=== PATIENT | female | born 1945 | race Caucasian/White ===

== ENCOUNTER → 2016-09-23 | Outpatient (CLI) | payer OTHER ==
[~2016-09-23] MED LIST: ASPI-232 PO; CALCTAB7 PO; FLUO20CA36 PO; HYDR-5688 PO; KLN1X PO; MULT-506 PO; OMEGCAP2 PO; PRAV40TA2 PO; TPRSR/25 PO
[2016-09-23 13:22] LABS: BASO % 0.4 %; BASO ABS # 0.03 K/uL (0-0.2); COMPLETE YES; EOS % 3.6 %; HEMATOCRIT 41.2 % (37-47); IG% 0.2 %; LYMPH % 43.8 %; LYMPH ABS # 3.63 K/uL (1.2-3.4); MEAN CELL VOLUME 100.5 fL (80-100); MEAN CORPUSCULAR HEMOGLOBIN 34.4 pg (25-34); MEAN CORPUSCULAR HGB CONC 34.2 g/dl (32-36); MEAN PLATELET VOLUME 10.8 fL (7.4-10.4); PLATELET COUNT 283 K/uL (130-400); WHITE BLOOD COUNT 8.28 K/uL (4.8-10.8)
[2016-09-23 13:46] LABS: ALT/SGPT 24 U/L (12-78); AST/SGOT 19 U/L (15-37); BLOOD UREA NITROGEN 20 mg/dl (7-18); BUN/CREATININE RATIO 20.3 (10-20); CALCIUM 9.6 mg/dl (8.5-10.1); CARBON DIOXIDE 25 mmol/L (21-32); CHLORIDE 106 mmol/L (98-107); CHOLESTEROL 231 mg/dl (0-200); GLUCOSE 86 mg/dl (70-99); SODIUM 141 mmol/L (136-145); TRIGLYCERIDES 170 mg/dl (0-150); VERY LOW DENSITY LIPOPROT CALC 34 mg/dl
[2016-09-23 13:49] LABS: ALB/GLOB RATIO 0.9 (0.9-2); ALKALINE PHOSPHATASE 75 U/L (45-117); CHOLESTEROL/HDL RATIO 4.4; HDL CHOLESTEROL 53 mg/dl
== END | disposition home or self-care (01) ==
LOC: C.LABSPEC 12:29
PROVIDERS: ATTEND Internal Medicine
DX: I10 Essential (primary) hypertension (principal); E78.5 Hyperlipidemia, unspecified; E55.9 Vitamin D deficiency, unspecified; Z11.59 Encounter for screening for other viral diseases; M25.511 Pain in right shoulder

== ENCOUNTER → 2016-10-10 | Outpatient (CLI) | payer OTHER | END | disposition home or self-care (01) | LOC: C.LABSPEC 14:39 | PROVIDERS: ATTEND Internal Medicine | DX: Z12.11 Encounter for screening for malignant neoplasm of colon (principal) ==

== ENCOUNTER → 2016-11-11 | Outpatient (CLI) | payer OTHER ==
[~2016-11-11] MED LIST changes: -HYDR-5688 PO
--- NOTE | 2016-11-11 15:07 | MAMMOGRAPHY REPORT ---
BILATERAL DIGITAL SCREENING MAMMOGRAM WITH CAD: 11/11/2016 CLINICAL HISTORY: Routine screening. Patient has no complaints. TECHNIQUE: Current study was also evaluated with a Computer Aided Detection (CAD) system. Bilatera l CC and MLO views were obtained. COMPARISON: Comparison is made to exams dated: 11/10/2015 mammogram, 01/14/2014 mammogram, 12/25/2012 ma mmogram, 12/20/2011 mammogram, 12/14/2010 mammogram, and 12/08/2009 mammogram - [facility]. BREAST COMPOSITION: The tissue of both breasts is almost entirely fatty. FINDINGS: No suspicious masses, calcifications, or areas of architectural distortion are noted in e ither breast. There has been no significant interval change compared to prior exams. Scattered bilat eral benign-appearing calcifications are not significantly changed. IMPRESSION: ACR BI-RADS CATEGORY 2: BENIGN There is no mammographic evidence of malignancy. A 1 year screening mammogram is recommended. The p atient will receive written notification of the results. Approximately 10% of breast cancers are not detected with mammography. A negative mammographic repor t should not delay biopsy if a clinically suggestive mass is present. Wendy James M.D. ah/:11/11/2016 12:44:38 Brush Material Preparer: Ellen ROSADO(R)(M), [facility] letter sent: Normal 1/2 BI-RADS Code: ACR BI-RADS Category 2: Benign
== END | disposition home or self-care (01) ==
LOC: C.MAMM 08:56
PROVIDERS: ATTEND Internal Medicine
DX: Z12.31 Encounter for screening mammogram for malignant neoplasm of breast (principal)

== ENCOUNTER → 2017-03-14 | Outpatient (CLI) | payer OTHER ==
[2017-03-14 13:35] LABS: BLOOD UREA NITROGEN 17 mg/dl (7-18); BUN/CREATININE RATIO 19.1 (10-20); CALCIUM 8.9 mg/dl (8.5-10.1); CARBON DIOXIDE 29 mmol/L (21-32); CHLORIDE 106 mmol/L (98-107); CHOLESTEROL 227 mg/dl (0-200); GLUCOSE 90 mg/dl (70-99); POTASSIUM 4.3 mmol/L (3.5-5.1); SODIUM 140 mmol/L (136-145); TRIGLYCERIDES 177 mg/dl (0-150); VERY LOW DENSITY LIPOPROT CALC 35 mg/dl
[2017-03-14 13:38] LABS: HDL CHOLESTEROL 45 mg/dl
== END | disposition home or self-care (01) ==
LOC: C.LABSPEC 12:24
PROVIDERS: ATTEND Internal Medicine
DX: E78.5 Hyperlipidemia, unspecified (principal); I10 Essential (primary) hypertension

== ENCOUNTER → 2017-07-20 | Outpatient (CLI) | payer OTHER ==
--- NOTE | 2017-07-20 15:56 | DIAGNOSTIC IMAGING REPORT ---
L-SPINE MIN 4 VIEWS ROUTINE HISTORY: 71 years-old Female LOWER BACK PAIN acute low back pain with history of prior lumbar spine surgery COMPARISON: None available TECHNIQUE: 5 views of the lumbar spine FINDINGS: There are 5 nonrib-bearing lumbar type vertebral segments. Mild levoscoliosis. Prior laminectomy and discectomy with posterior interbody anselmo and screw fusion at L3-L4. No evidence of hardware complication. Alignment is satisfactory. Moderate intervertebral disc space narrowing at L2-L3, L4-L5 and L5-S1 with facet arthrosis and endplate spurring. No compression deformity. Surgical clips of the right upper abdomen suggest prior cholecystectomy. Right hip arthroplasty. Atherosclerosis of the aorta. IMPRESSION: 1. No acute fracture or subluxation. 2. Prior laminectomy and discectomy with posterior interbody anselmo and screw fusion at L3-L4 without evidence of hardware complication. 3. Moderate intervertebral disc space narrowing at L2-L3, L4-L5 and L5-S1 with facet arthrosis and endplate spurring. The above report was generated using voice recognition software. It may contain grammatical, syntax or spelling errors. Electronically signed by: Saravanan Dale M.D. 07/20/2017 3:54 PM Dictated Date/Time: 07/20/2017 3:52 PM
== END | disposition home or self-care (01) ==
LOC: C.RAD 15:19
PROVIDERS: ATTEND Internal Medicine
DX: M54.5 Low back pain (principal); Z98.1 Arthrodesis status; M51.37 Other intervertebral disc degeneration, lumbosacral region

== ENCOUNTER → 2017-08-31 | Outpatient (CLI) | payer OTHER ==
[2017-08-31 13:38] LABS: BASO % 0.2 %; BASO ABS # 0.02 K/uL (0-0.2); EOS % 1.3 %; EOS ABS # 0.15 K/uL (0-0.5); IG# 0.04 K/uL (0.00-0.02); LYMPH % 29.1 %; LYMPH ABS # 3.29 K/uL (1.2-3.4); MEAN CELL VOLUME 100.8 fL (80-100); MEAN CORPUSCULAR HEMOGLOBIN 34.5 pg (25-34); MEAN CORPUSCULAR HGB CONC 34.2 g/dl (32-36); MEAN PLATELET VOLUME 10.5 fL (7.4-10.4); MONO % 15.5 %; MONO ABS # 1.75 K/uL (0.11-0.59); NEUT % 53.5 %; NEUT ABS # 6.07 K/uL (1.4-6.5); PLATELET COUNT 309 K/uL (130-400); RED CELL DISTRIBUTION WIDTH CV 12.8 % (11.5-14.5); RED CELL DISTRIBUTION WIDTH SD 46.7 fL (36.4-46.3); WHITE BLOOD COUNT 11.32 K/uL (4.8-10.8)
[2017-08-31 14:18] LABS: INFLUENZA B ANTIGEN Neg for Influ B (NEG)
[2017-08-31 14:23] LABS: ALBUMIN 3.2 gm/dl (3.4-5.0); ALT/SGPT 22 U/L (12-78); AST/SGOT 14 U/L (15-37); BLOOD UREA NITROGEN 17 mg/dl (7-18); CALCIUM 9.3 mg/dl (8.5-10.1); CARBON DIOXIDE 26 mmol/L (21-32); CREATININE 0.84 mg/dl (0.60-1.20); GLUCOSE 90 mg/dl (70-99); SODIUM 138 mmol/L (136-145)
[2017-08-31 14:25] LABS: ALKALINE PHOSPHATASE 74 U/L (45-117); TOTAL PROTEIN 7.6 gm/dl (6.4-8.2)
== END | disposition home or self-care (01) ==
LOC: C.LABSPEC 12:44
PROVIDERS: ATTEND Internal Medicine
DX: R53.83 Other fatigue (principal); N18.9 Chronic kidney disease, unspecified

== ENCOUNTER → 2017-09-19 | Outpatient (CLI) | payer OTHER ==
[2017-09-19 13:35] LABS: BASO % 0.4 %; BASO ABS # 0.03 K/uL (0-0.2); EOS % 4.9 %; EOS ABS # 0.37 K/uL (0-0.5); HEMATOCRIT 39.1 % (37-47); HEMOGLOBIN 13.3 g/dL (12.0-16.0); IG# 0.01 K/uL (0.00-0.02); LYMPH % 44.7 %; LYMPH ABS # 3.38 K/uL (1.2-3.4); MEAN CELL VOLUME 100.8 fL (80-100); MEAN CORPUSCULAR HEMOGLOBIN 34.3 pg (25-34); MEAN PLATELET VOLUME 10.4 fL (7.4-10.4); MONO % 10.7 %; MONO ABS # 0.81 K/uL (0.11-0.59); NEUT % 39.2 %; NEUT ABS # 2.96 K/uL (1.4-6.5); PLATELET COUNT 274 K/uL (130-400); RED CELL DISTRIBUTION WIDTH CV 13.1 % (11.5-14.5); RED CELL DISTRIBUTION WIDTH SD 48.2 fL (36.4-46.3); WHITE BLOOD COUNT 7.56 K/uL (4.8-10.8)
[2017-09-19 14:06] LABS: BLOOD UREA NITROGEN 22 mg/dl (7-18); CARBON DIOXIDE 26 mmol/L (21-32); CREATININE 0.85 mg/dl (0.60-1.20); GLUCOSE 88 mg/dl (70-99); POTASSIUM 4.1 mmol/L (3.5-5.1); SODIUM 138 mmol/L (136-145)
[2017-09-19 14:10] LABS: CHOLESTEROL 165 mg/dl (0-200); LDL CHOLESTEROL (DIRECT) 106 mg/dl
== END | disposition home or self-care (01) ==
LOC: C.LABSPEC 12:51
PROVIDERS: ATTEND Internal Medicine
DX: E78.5 Hyperlipidemia, unspecified (principal); I10 Essential (primary) hypertension; D72.829 Elevated white blood cell count, unspecified

== ENCOUNTER → 2017-10-13 | Outpatient (CLI) | payer OTHER ==
[2017-10-18 15:54] LABS: FECAL OCCULT BLOOD #1 NEGATIVE (NEGATIVE); FECAL OCCULT BLOOD #2 NEGATIVE (NEGATIVE); FECAL OCCULT BLOOD #3 POSITIVE (NEGATIVE)
== END | disposition home or self-care (01) ==
LOC: C.LABSPEC 15:05
PROVIDERS: ATTEND Internal Medicine
DX: Z12.11 Encounter for screening for malignant neoplasm of colon (principal)

== ENCOUNTER → 2017-10-17 | Outpatient (CLI) | payer OTHER ==
[~2017-10-17] MED LIST changes: +GADAVIST IV PRN
--- NOTE | 2017-10-17 13:52 | DIAGNOSTIC IMAGING REPORT ---
MRI OF THE LUMBAR SPINE WITH AND WITHOUT CONTRAST CLINICAL HISTORY: Lumbar radiculopathy. Burning sensation within the back. Degenerative disc disease. Prior surgery. COMPARISON STUDY: Lumbar spine radiographs July 20, 2017. TECHNIQUE: Utilizing a 1.5 Kristina magnet and dedicated coil, multiplanar, multiecho imaging of the lumbar spine was performed before and after uneventful IV administration of 8 mL of Gadavist. FINDINGS: For purposes of numbering on this exam, the L5-S1 disc space is assigned to axial image 23 of 25. There is mild levoscoliosis of the lumbar spine. There is 3 mm of anterolisthesis of L3 on L4. There are postoperative findings consistent with an L3-L4 discectomy, posterior decompression and bilateral pedicle screw fusion. A small amount of fluid within the laminectomy bed is not unexpected. No intracanalicular mass is present. The conus terminates at the L1-L2 level. Paravertebral soft tissues are unremarkable. There is no suspicious marrow replacement. There is no lumbar spine fracture. L1-2: The central canal in the neural foramen are patent. L2-3: There is disc bulge, ligamentous hypertrophy and facet arthrosis. The findings result in mild to moderate narrowing of the right lateral recess with mild narrowing of the central canal and left neural foramen. There is moderate narrowing of the right neural foramen. L3-4: There is no residual central canal stenosis. The neural foramen are patent. L4-5: There is disc bulge, ligamentous hypertrophy and facet arthrosis that result in mild to moderate narrowing of the central canal, lateral recesses and moderate narrowing of both neural foramen. L5-S1: There is disc bulge with a superimposed small left foraminal disc protrusion. There is moderate narrowing of the left neural foramen. Central canal is patent. There is facet arthrosis. IMPRESSION: 1. Status post L3-L4 discectomy and bilateral pedicle screw fusion. Small amount of fluid within the laminectomy bed is not unexpected in the postoperative setting. 2. Disc bulge with ligamentous hypertrophy and facet arthrosis at L4-L5 that result in mild to moderate narrowing of the central canal and lateral recesses with moderate narrowing of both neural foramen. 3. Disc bulge with facet arthrosis that results in mild to moderate narrowing of the right lateral recess and moderate narrowing of the right neural foramen at L2-L3. 4. No lumbar spine fracture. 5. Small left foraminal disc protrusion at L5-S1. Moderate narrowing of the left neural foramen. Electronically signed by: Cresencio Meng M.D. 10/17/2017 1:51 PM Dictated Date/Time: 10/17/2017 1:43 PM
== END | disposition home or self-care (01) ==
LOC: C.MRI 11:48
PROVIDERS: ATTEND Internal Medicine
DX: M43.26 Fusion of spine, lumbar region (principal); M51.26 Other intervertebral disc displacement, lumbar region; M47.26 Other spondylosis with radiculopathy, lumbar region; M48.061 Spinal stenosis, lumbar region without neurogenic claudication; M51.27 Other intervertebral disc displacement, lumbosacral region

== ENCOUNTER → 2017-11-15 | Outpatient (CLI) | payer OTHER ==
[~2017-11-15] MED LIST changes: -GADAVIST IV PRN
--- NOTE | 2017-11-15 15:25 | MAMMOGRAPHY REPORT ---
BILATERAL DIGITAL SCREENING MAMMOGRAM TOMOSYNTHESIS WITH CAD: 11/15/2017 CLINICAL HISTORY: Routine screening. Patient has no complaints. TECHNIQUE: Breast tomosynthesis in addition to standard 2D mammography was performed. Current study was also evaluated with a Computer Aided Detection (CAD) system. COMPARISON: Comparison is made to exams dated: 11/11/2016 mammogram, 11/10/2015 mammogram, 01/14/2014 mamm ogram, 12/25/2012 mammogram, 12/20/2011 mammogram, and 12/14/2010 mammogram - [facility] BREAST COMPOSITION: The tissue of both breasts is almost entirely fatty. FINDINGS: There are benign punctate and rim calcifications in the right anterior breast and a few sta ble benign punctate calcifications in the left anterior breast. No suspicious mass, architectural di stortion or cluster of suspicious microcalcifications is seen. IMPRESSION: ACR BI-RADS CATEGORY 1: NEGATIVE There is no mammographic evidence of malignancy. A 1 year screening mammogram is recommended. The pa tient will receive written notification of the results. Approximately 10% of breast cancers are not detected with mammography. A negative mammographic report should not delay biopsy if a clinically suggestive mass is present. Funmilayo Dawson M.D. ay/:11/15/2017 14:49:05 Blueprint Machine Operator: Yanely ARAGON)(Heiid), [facility] letter sent: Normal 1/2 BI-RADS Code: ACR BI-RADS Category 1: Negative
== END | disposition home or self-care (01) ==
LOC: C.MAMM 08:55
PROVIDERS: ATTEND Internal Medicine
DX: Z12.31 Encounter for screening mammogram for malignant neoplasm of breast (principal)

== ENCOUNTER → 2018-03-20 | Outpatient (CLI) | payer OTHER ==
[2018-03-20 14:32] LABS: BLOOD UREA NITROGEN 19 mg/dl (7-18); CALCIUM 8.9 mg/dl (8.5-10.1); CARBON DIOXIDE 26 mmol/L (21-32); CHOLESTEROL 144 mg/dl (0-200); CREATININE 0.83 mg/dl (0.60-1.20); GLUCOSE 89 mg/dl (70-99); LDL CHOLESTEROL (DIRECT) 84 mg/dl; POTASSIUM 3.8 mmol/L (3.5-5.1); SODIUM 140 mmol/L (136-145)
== END | disposition home or self-care (01) ==
LOC: C.LABSPEC 13:17
PROVIDERS: ATTEND Internal Medicine
DX: E78.5 Hyperlipidemia, unspecified (principal); I10 Essential (primary) hypertension

== ENCOUNTER 2022-04-06 08:28 | Inpatient (IN) ==
[2022-04-06] MEDS ORDERED: dexAMETHasone 8 MG in SYRINGE 0 ML IV ONE (09:04)
--- NOTE | 2022-04-06 09:05 | Emergency Department Note ---
Impression & Plan COVID-19 Hypoxia ED Provider Note HPI: The patient is a 76-year-old female with history of COPD, presents the emergency department with a chief complaint of shortness of breath, cough, sinus congestion. Patient states her symptoms have been ongoing for the past 5 days. Patient states that her grandson recently tested positive for COVID-19 and therefore she took a home test last night and it was positive. Patient states that she does feel some shortness of breath that worsens with exertion. On arrival here to the ED patient was noted to be saturating at 87% by bedside RN, she was placed on 2 L nasal cannula oxygen with good improvement. She does not exhibit any increased work of breathing on my initial evaluation and she presents afebrile. Patient denies any chest pain. ROS: -Pulmonary: Shortness of breath *10 point review systems was conducted and is otherwise negative unless stated above *Outpatient medications and allergy history reviewed PE: General: Alert, NAD HEENT: Normocephalic, atraumatic Eyes: Extraocular eye movement is intact, no scleral erythema Pulmonary: Clear to auscultation bilaterally, no wheezing Cardio: Regular rate and rhythm GI: Abdomen is soft, nontender : No suprapubic tenderness MSK: No evidence of trauma or malformation of the extremities, no edema Skin: No evidence of rash Neuro: Alert, no focal deficits Psychiatric: Cooperative site monitor: - An order was placed for continuous cardiac monitoring - Patient was noted to be in sinus rhythm with a rate of 63 EKG: Rate: 61 Rhythm: Normal sinus rhythm Intervals: Within normal limits ST changes: No ST elevation Time: 0851 Medical Decision Making: The patient is a 76-year-old female with history of COPD, presents the emergency department with a chief complaint of shortness of breath. Noted to be hypoxic in triage at 87%, placed on nasal cannula oxygen with good improvement. Patient states that she had a positive COVID-19 test yesterday evening. On arrival to the ED the patient appears in no acute distress on my initial evaluation, she is without significant increased work of breathing, now saturating in the mid 90s on nasal cannula oxygen. Lab work is largely reassuring, no leukocytosis, no critical electrolyte abnormalities, troponin is within normal limits, EKG does not show any ischemic changes. On my reassessment the patient is resting comfortably in bed, oxygen was turned off and the patient unfortunately about 5 minutes later desatted to 88%, oxygen was therefore placed again, patient was given IV Decadron, will plan for admission to the hospitalist service following my discussion with the on- call hospitalist, Dr. Ham. Patient is in agreement for admission and she was admitted in stable condition. * CRITICAL CARE TIME: 40min -Stabilization of hypoxia with oxygen saturation less than 90% on room air requiring supplemental oxygen for improvement, time spent at the bedside, interpretation of diagnostic studies, arrangement of admission Diagnosis: 1. Hypoxia 2. COVID-19 infection 3. 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 Elisa Solomon voice Restless legs syndrome Tinnitus Xerostomia Surgical History (Updated 12/29/21 @ 11:14 by Patricia Olvera DO) History of adenoidectomy History of cardiac cath (2014) History of cataract surgery bilat History of cervical spinal surgery ACDF History of cholecystectomy History of tonsillectomy History of tooth extraction History of total hip arthroplasty RIGHT S/P lumbar fusion S/P ORIF (open reduction internal fixation) fracture L wrist Status post wrist surgery R tendon repair Family History (Updated 12/29/21 @ 11:15 by Patricia Olvera DO) Brother KELLY (obstructive sleep apnea) Restless leg Paranoid Father Kidney disease Diabetes Mother Heart disease Hearing loss Hypertension Myocardial infarction Sister Restless leg Grandfather (Maternal) , age 43 Heart disease Myocardial infarction, Onset Age: 43 Grandmother (Paternal) Diabetes Stroke Grandfather (Paternal) Cancer Other No family history of adverse response to anesthesia No family history of bleeding disorder Denies family history of Ovarian cancer Prostate cancer Breast cancer Colorectal cancer Social History (Updated 12/29/21 @ 11:17 by WILMA Amado Smoking Status: Former smoker Tobacco Type: Cigarettes Age Started Using Tobacco: 21; packs per day: 1; Years Smoked: 40; Second Hand Exposure: No; Hx Alcohol Use: Yes Alcohol type: beer Hx Substance Use: No Preferred Language: [place] Communication Ability: Effective Visual Impairment: No Limitations Hearing Ability: Normal Stiff Neck Loader Required: No Beliefs That Will Affect Care: None marital status: Current Living Situation: Spouse current occupational status: retired How many Children do You have: 2 Feels Safe at Home: Yes Diet Comment: regular caffeine: Yes during the past year weight has: remained stable Dental Care, Regularly: Yes Physical Activity Frequency: Daily Seatbelt Use: always Sunscreen Use: Yes Assistive Devices: CPAP Allergies Allergies Allergy/AdvReac Type Severity Reaction Status Date / Time No Known Drug Allergies Allergy Unknown Verified 12/29/21 10:18 cat dander AdvReac Intermediate WATERY Verified 12/29/21 10:18 ITCHY EYES, NOSE Home Meds Home Medications Medication Instructions Recorded Confirmed metoprolol succinate 25 mg 25 mg PO QAM ##0 05/07/14 12/29/21 tablet,extended release 24 hr Previous Rx's Medication Instructions Recorded fluticasone fur. 100 mcg-umeclid 1 inh inhalation DAILY #3 Inhalers 11/13/21 62.5 mcg-vilant 25 mcg inhalat.powder (Trelegy Ellipta) gabapentin 100 mg capsule 200 mg PO BID 90 days #360 caps 12/10/21 atorvastatin 40 mg tablet 40 mg PO QAM #90 tabs 01/19/22 omeprazole 40 mg capsule,delayed 40 mg PO QAM #90 caps 01/19/22 release famotidine 20 mg tablet (Acid 20 mg PO PM #90 tabs 02/16/22 Circulation Director (famotidine)) fluoxetine 20 mg capsule 20 mg PO QAM #90 caps 02/16/22 albuterol sulfate 90 mcg/actuation 1 puff inhalation Q4H PRN 02/23/22 aerosol inhaler shortness of breath or wheezing #8.5 grams pramipexole 0.25 mg tablet 0.25 mg PO .COMPLEX #270 tabs 03/31/22 Results & Data (ED) Vital Signs Vital Signs - 24 hr 04/06/22 08:30 04/06/22 08:29 04/06/22 08:29 Temperature 36.4 C L Temperature Source Temporal Artery Scan Pulse Rate 65 Pulse Rate [Apical] Pulse Rhythm Pulse Rhythm [Apical] Pulse Strength [Apical] Respiratory Rate 18 Respiratory Effort / Characteristics Non-Labored Respiratory Depth Normal Normal Respiratory Pattern Regular Regular Blood Pressure 157/67 H Blood Pressure [Left Arm] Blood Pressure Mean 97 Blood Pressure Mean [Left Arm] Blood Pressure Position [Left Arm] Pulse Oximetry 91 87 L Oxygen Delivery Method Room Air Nasal Cannula Room Air Oxygen Flow Rate 2 0 Sepsis Recent Fever Within 48 Hours No Sepsis New/Unexplained Change in Mental Status No Sepsis Action Taken by Nursing No Action Required Oxygen Flow Rate - Titration 2 Pulse Oximetry Post Tiitration 94 04/06/22 08:29 04/06/22 08:38 04/06/22 09:47 Temperature Temperature Source Pulse Rate 60 Pulse Rate [Apical] 58 L Pulse Rhythm Regular Pulse Rhythm [Apical] Regular Pulse Strength [Apical] Normal Respiratory Rate 20 16 18 Respiratory Effort / Characteristics Non-Labored Non-Labored Respiratory Depth Normal Normal Respiratory Pattern Regular Regular Blood Pressure Blood Pressure [Left Arm] 131/82 Blood Pressure Mean Blood Pressure Mean [Left Arm] 98 Blood Pressure Position [Left Arm] Lying Pulse Oximetry 94 94 95 Oxygen Delivery Method Nasal Cannula Nasal Cannula Nasal Cannula Oxygen Flow Rate 2 2 2 Sepsis Recent Fever Within 48 Hours Sepsis New/Unexplained Change in Mental Status Sepsis Action Taken by Nursing Oxygen Flow Rate - Titration Pulse Oximetry Post Tiitration 04/06/22 10:59 04/06/22 10:59 Temperature Temperature Source Pulse Rate Pulse Rate [Apical] Pulse Rhythm Pulse Rhythm [Apical] Pulse Strength [Apical] Respiratory Rate Respiratory Effort / Characteristics Respiratory Depth Respiratory Pattern Blood Pressure Blood Pressure [Left Arm] Blood Pressure Mean Blood Pressure Mean [Left Arm] Blood Pressure Position [Left Arm] Pulse Oximetry 87 L 93 Oxygen Delivery Method Room Air Nasal Cannula Oxygen Flow Rate 2 Sepsis Recent Fever Within 48 Hours Sepsis New/Unexplained Change in Mental Status Sepsis Action Taken by Nursing Oxygen Flow Rate - Titration Pulse Oximetry Post Tiitration Laboratory Data Result diagrams: 04/06/22 09:00 04/06/22 09:00 Lab Results 04/06/22 04/06/22 04/06/22 Range/Units 09:00 09:00 09:00 WBC 6.00 (4.8-10.8) K/ul RBC 3.98 (3.93-5.22) M/uL Hgb 13.1 (12.0-16.0) g/dl Hct 39.8 (34.1-44.9) % MCV 100.0 (80.0-100.0) fL MCH 32.9 (25.0-34.0) pg MCHC 32.9 (32.0-36.0) g/dL RDW Std Deviation 48.5 H (36.4-46.3) fL RDW Coeff of Soraida 13.1 (11.5-14.5) % Plt Count 239 (130-400) K/uL MPV 9.4 (9.4-12.3) fL Immature Gran % (Auto) 0.3 % Neut % (Auto) 37.5 % Lymph % (Auto) 35.7 % Ada % (Auto) 19.5 % Eos % (Auto) 6.5 % Baso % (Auto) 0.5 % Neut # (Auto) 2.25 (1.4-6.5) K/uL Lymph # (Auto) 2.14 (1.2-3.4) K/uL Ada # (Auto) 1.17 H (0.24-0.82) K/uL Eos # (Auto) 0.39 (0-0.50) K/uL Baso # (Auto) 0.03 (0-0.2) K/uL Immature Gran # (Auto) 0.02 (0.00-0.02) K/uL PT 10.4 (9.0-12.0) Seconds INR 1.0 (0.9-1.1) APTT 23.1 (21.0-31.0) Seconds PTT Ratio 0.8 VBG pH (7.36-7.41) VBG pCO2 (38-50) mmHg VBG pO2 mmHg VBG HCO3 mmol/L VBG O2 Saturation % VBG Base Excess mEq/L Sodium 139 (136-145) mmol/L Potassium 3.9 (3.5-5.1) mmol/L Chloride 107 (98-107) mmol/L Carbon Dioxide 23 (21-32) mmol/L Anion Gap 9 (3-11) BUN 17 (6-23) mg/dl Creatinine 0.99 (0.6-1.2) mg/dl Est Cr Clr Drug Dosing 58.2 ml/min Est GFR ( Amer) 65.1 ml/min Est GFR (Non-Af Amer) 56.1 ml/min BUN/Creatinine Ratio 17.2 (10-20) Glucose 93 (70-99(Fasting)) mg/dl Calcium 8.8 (8.5-10.1) mg/dl Total Bilirubin 0.7 (0.2-1.0) mg/dl AST 24 (13-39) U/L ALT 18 (7-52) U/L Alkaline Phosphatase 86 (34-104) U/L Troponin I High Sens 6.1 (0-14) pg/ml Total Protein 6.9 (6.0-8.3) gm/dl Albumin 3.9 (3.4-5.0) gm/dl Globulin 3.0 (2.5-4.0) gm/dl Albumin/Globulin Ratio 1.3 (0.9-2) SARS-CoV-2 (PCR) (Negative) Influenza Type A (PCR) (Neg) Influenza Type B (PCR) (Neg) RSV (RT-PCR) (Neg) 04/06/22 04/06/22 Range/Units 09:17 09:35 WBC (4.8-10.8) K/ul RBC (3.93-5.22) M/uL Hgb (12.0-16.0) g/dl Hct (34.1-44.9) % MCV (80.0-100.0) fL MCH (25.0-34.0) pg MCHC (32.0-36.0) g/dL RDW Std Deviation (36.4-46.3) fL RDW Coeff of Soraida (11.5-14.5) % Plt Count (130-400) K/uL MPV (9.4-12.3) fL Immature Gran % (Auto) % Neut % (Auto) % Lymph % (Auto) % Ada % (Auto) % Eos % (Auto) % Baso % (Auto) % Neut # (Auto) (1.4-6.5) K/uL Lymph # (Auto) (1.2-3.4) K/uL Ada # (Auto) (0.24-0.82) K/uL Eos # (Auto) (0-0.50) K/uL Baso # (Auto) (0-0.2) K/uL Immature Gran # (Auto) (0.00-0.02) K/uL PT (9.0-12.0) Seconds INR (0.9-1.1) APTT (21.0-31.0) Seconds PTT Ratio VBG pH 7.40 (7.36-7.41) VBG pCO2 44 (38-50) mmHg VBG pO2 32 mmHg VBG HCO3 27 mmol/L VBG O2 Saturation 60.9 % VBG Base Excess 2.0 mEq/L Sodium (136-145) mmol/L Potassium (3.5-5.1) mmol/L Chloride (98-107) mmol/L Carbon Dioxide (21-32) mmol/L Anion Gap (3-11) BUN (6-23) mg/dl Creatinine (0.6-1.2) mg/dl Est Cr Clr Drug Dosing ml/min Est GFR ( Amer) ml/min Est GFR (Non-Af Amer) ml/min BUN/Creatinine Ratio (10-20) Glucose (70-99(Fasting)) mg/dl Calcium (8.5-10.1) mg/dl Total Bilirubin (0.2-1.0) mg/dl AST (13-39) U/L ALT (7-52) U/L Alkaline Phosphatase (34-104) U/L Troponin I High Sens (0-14) pg/ml Total Protein (6.0-8.3) gm/dl Albumin (3.4-5.0) gm/dl Globulin (2.5-4.0) gm/dl Albumin/Globulin Ratio (0.9-2) SARS-CoV-2 (PCR) POSITIVE A* (Negative) Influenza Type A (PCR) Negative (Neg) Influenza Type B (PCR) Negative (Neg) RSV (RT-PCR) Negative (Neg) Administered Medications Discontinued Medications Dexamethasone 8 mg/ Syringe 2 mls @ 1 mls/min IV ONE ONE Stop: 04/06/22 09:05 Last Admin: 04/06/22 09:45 Dose: 1 mls/min Documented By: Imaging Data Radiologist's Impression: Chest X-Ray 04/06/22 08:38 XR chest 1V portable HISTORY: Dyspnea COMPARISON: Chest 12/23/2021. FINDINGS: No pneumothorax. No pleural effusions. Left basilar linear densities favor subsegmental atelectasis. Otherwise, lungs are clear. The heart is normal in size. Calcified plaque again noted within the aortic knob. Cervical spinal fusion hardware is partially visualized. No evidence for pulmonary edema. IMPRESSION: No significant change compared to the prior study. No acute process. ACT 112: Negative or not required by law. Electronically signed by: Riley Ward M.D. 04/06/2022 9:22 AM Discharge Plan Visit Data Chief Complaint: Shortness of Breath/Dyspnea Stated Complaint: COVID +, SOB ED Provider: Tanmay Foster Discharge Problem: COVID-19 Forms Stand Alone Forms: My [employer] Prescriptions Prescriptions: No Action metoprolol succinate 25 mg Tablet Extended Release 24 Hr 25 mg PO QAM Qty: 0 atorvastatin 40 mg tablet 40 mg PO QAM Qty: 90 3RF omeprazole 40 mg capsule,delayed release(DR/EC) 40 mg PO QAM Qty: 90 2RF Rx Instructions: Take 30 mins before a meal with protein famotidine [Acid Circulation Director (famotidine)] 20 mg tablet 20 mg PO PM Qty: 90 3RF fluoxetine 20 mg capsule 20 mg PO QAM Qty: 90 3RF albuterol sulfate 90 mcg/actuation HFA aerosol inhaler 1 puff inhalation Q4H PRN (Reason: shortness of breath or wheezing) Qty: 8.5 5RF pramipexole 0.25 mg tablet 0.25 mg PO .COMPLEX Qty: 270 1RF Rx Instructions: 0.25 mg PO take one tab at 4 PM, then take two tabs 2 hours before bedtime; gabapentin 100 mg capsule 200 mg PO BID 90 Days Qty: 360 1RF Trelegy Ellipta 100-62.5-25 mcg blister with device 1 inh inhalation DAILY Qty: 3 3RF Referrals Referrals: Patricia Olvera DO [Primary Care Provider] -
[2022-04-06 09:16] LABS: Basophils # (auto) 0.03 K/uL (0-0.2); Basophils % (auto) 0.5 %; Eosinophils # (auto) 0.39 K/uL (0-0.50); Eosinophils % (auto) 6.5 %; Hematocrit (blood only) 39.8 % (34.1-44.9); Hemoglobin 13.1 g/dl (12.0-16.0); Immature Granulocytes # (auto) 0.02 K/uL (0.00-0.02); Immature Granulocytes % (auto) 0.3 %; Lymphocytes # (auto) 2.14 K/uL (1.2-3.4); Lymphocytes % (auto) 35.7 %; Mean Corpuscular Hemoglobin 32.9 pg (25.0-34.0); Mean Corpuscular Hgb Conc 32.9 g/dL (32.0-36.0); Mean Platelet Volume 9.4 fL (9.4-12.3); Monocytes # (auto) 1.17 K/uL (0.24-0.82); Monocytes % (auto) 19.5 %; Neutrophils # (auto) 2.25 K/uL (1.4-6.5); Neutrophils % (auto) 37.5 %; Platelet Count 239 K/uL (130-400); RDW Coefficient of Variation 13.1 % (11.5-14.5); RDW Standard Deviation 48.5 fL (36.4-46.3); Red Blood Count 3.98 M/uL (3.93-5.22)
--- NOTE | 2022-04-06 09:24 | XRay Report ---
XR chest 1V portable HISTORY: Dyspnea COMPARISON: Chest 12/23/2021. FINDINGS: No pneumothorax. No pleural effusions. Left basilar linear densities favor subsegmental ate lectasis. Otherwise, lungs are clear. The heart is normal in size. Calcified plaque again noted withi n the aortic knob. Cervical spinal fusion hardware is partially visualized. No evidence for pulmonary edema. IMPRESSION: No significant change compared to the prior study. No acute process. ACT 112: Negative or not required by law. Electronically signed by: Riley Ward M.D. 04/06/2022 9:22 AM
[2022-04-06 09:28] LABS: Partial Thromboplastin Ratio 0.8; Partial Thromboplastin Time 23.1 Seconds (21.0-31.0); Prothrombin Time 10.4 Seconds (9.0-12.0)
[2022-04-06 09:46] LABS: HCO3 VBG 27 mmol/L; Oxygen Saturation VBG 60.9 %; PCO2 VBG 44 mmHg (38-50); PO2 VBG 32 mmHg
[2022-04-06 09:58] LABS: Troponin I High Sensitivity 6.1 pg/ml (0-14)
[2022-04-06 10:02] LABS: Albumin Globulin Ratio 1.3 (0.9-2); Albumin Level 3.9 gm/dl (3.4-5.0); BUN Creatinine Ratio 17.2 (10-20); Bilirubin,Total 0.7 mg/dl (0.2-1.0); Calcium 8.8 mg/dl (8.5-10.1); Creatinine Clr Calc Pharmacy 58.2 ml/min; Est GFR (African American) 65.1 ml/min; Est GFR (Non-African American) 56.1 ml/min; Potassium 3.9 mmol/L (3.5-5.1); Total Protein 6.9 gm/dl (6.0-8.3)
[2022-04-06 10:09] LABS: Influenza A virus by PCR Negative (Neg); Influenza B virus by PCR Negative (Neg); RSV by PCR Negative (Neg)
[2022-04-06 10:34] LABS: SARS CoV2 RNA(COVID-19) InHosp POSITIVE (Negative)
--- NOTE | 2022-04-06 11:00 | History & Physical Report ---
Date of Service April 06, 2022 Assessment & Plan (1) COVID-19: Plan: With resulting COPD exacerbation. Mildly hypoxic at time of presentation but no obvious pneumonia on CXR. Received 8mg of IV dexamethasone in the ER. Will cont IV dexamethasone 6mg daily thereafter. Start Remdesivir - 200mg today, then 100mg daily thereafter for up to 5 days. Duonebs q4h, first treatment now. Flutter valve/incentive spirometer. Mucinex/tessalon. Telemetry with airborne precautions. Check a baseline d-dimer in am. NC o2 to keep sats 90-92%. Cont home inhalers. Lovenox BID for DVT proph. (2) COPD exacerbation: Plan: 2nd to COVID-19 infection as above in #1. Steroids, nebs, Remdesivir, etc. Hold off on antibiotics for superinfection for now. Send sputum culture. (3) LPRD (laryngopharyngeal reflux disease): Plan: Cont H2 khurram. Cont PPI. (4) HTN (hypertension): Plan: HRs are in the 50s on low-dose beta khurram. Hold metoprolol for now. (5) RLS (restless legs syndrome): Plan: Cont pramipexole per home dosing. (6) CAD (coronary artery disease): Plan: 2015 - nonobstructive - LM: normal. LAD: normal. LCx: normal. Large OM: 20% mid stenosis. RCA: ostial 40% stenosis. No recent ischemic symptoms. Cont statin. (7) Hyperlipidemia: Plan: Cont statin agent. LFTs noted to be wnl. AST/ALT to be checked daily while on Remdesivir. (8) Anxiety and depression: Plan: Cont fluoxetine daily. (9) Obstructive sleep apnea: Plan: Per outpatient pulmonary clinic notes she is no longer using CPAP. (10) DVT prophylaxis: Plan: lovenox 40mg BID History of Present Illness Chief Complaint: shortness of breath, cough Primary Care Provider: DO Herb Amado 76yo female with history of COPD, HTN, nonobstructive CAD, hyperlipidemia, and KELLY (no longer using CPAP) presents from home with 5 days of cough, shortness of breath, wheezing, dyspnea on exertion, sore throat, nasal congestion, fatigue, myalgias, and subjective fevers/chills. Cough is largely nonproductive although has some yellow sputum on occasion. She and her family attended [employer] and tented for the entire duration (11 days). She had an exposure to COVID-19 with an inlaw (12 year old boy) having been diagnosed with COVID in the last few days. She self-tested for COVID last pm at home and her test was positive. Upon presentation today her O2 sats were 87% in room air. Attempts to remove the O2 were not successful - late in the ER visit her sats were 88% again after removing the NC O2. Of note - the patient is fully vaccinated and has received a booster. Allergies Allergy/AdvReac Type Severity Reaction Status Date / Time No Known Drug Allergies Allergy Unknown Verified 12/29/21 10:18 cat dander AdvReac Intermediate WATERY Verified 12/29/21 10:18 ITCHY EYES, NOSE Home Medications Medication Instructions Recorded Confirmed Type metoprolol succinate 25 mg 25 mg PO QAM ##0 05/07/14 12/29/21 History tablet,extended release 24 hr fluticasone fur. 100 mcg-umeclid 1 inh inhalation DAILY #3 Inhalers 11/13/21 12/29/21 Rx 62.5 mcg-vilant 25 mcg inhalat.powder (Trelegy Ellipta) gabapentin 100 mg capsule 200 mg PO BID 90 days #360 caps 12/10/21 12/29/21 Rx atorvastatin 40 mg tablet 40 mg PO QAM #90 tabs 01/19/22 Rx omeprazole 40 mg capsule,delayed 40 mg PO QAM #90 caps 01/19/22 Rx release famotidine 20 mg tablet (Acid 20 mg PO PM #90 tabs 02/16/22 Rx People Greeter (famotidine)) fluoxetine 20 mg capsule 20 mg PO QAM #90 caps 02/16/22 Rx albuterol sulfate 90 mcg/actuation 1 puff inhalation Q4H PRN 02/23/22 Rx aerosol inhaler shortness of breath or wheezing #8.5 grams pramipexole 0.25 mg tablet 0.25 mg PO .COMPLEX #270 tabs 03/31/22 Rx Past Med/Surg History Medical History Acid reflux Anemia hx Anxiety CAD (coronary artery disease) MILD NONOCCLUSIVE PER 2015 CARDIAC CATH > no cardio Cervical disc disease Chronic obstructive pulmonary disease D.O.E Dyspnea on exertion History of tobacco abuse Hoarseness of voice HTN (hypertension) Hypercholesterolemia Hyperlipidemia Hypertension LPRD (laryngopharyngeal reflux disease) Obesity (BMI 30.0-34.9) Obstructive sleep apnea cpap Osteoarthritis 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 Elisa Solomon voice Restless legs syndrome Tinnitus Xerostomia Surgical History History of adenoidectomy History of cardiac cath (2014) History of cataract surgery bilat History of cervical spinal surgery ACDF History of cholecystectomy History of tonsillectomy History of tooth extraction History of total hip arthroplasty RIGHT S/P lumbar fusion S/P ORIF (open reduction internal fixation) fracture L wrist Status post wrist surgery R tendon repair Family History (Updated 04/06/22 @ 11:52 by Cristiano Ham) Brother KELLY (obstructive sleep apnea) Restless leg Paranoid Father , age 63 Kidney disease Diabetes Mother , age 89 Heart disease Hearing loss Hypertension Myocardial infarction Sister Restless leg Grandfather (Maternal) , age 43 Heart disease Myocardial infarction, Onset Age: 43 Grandmother (Paternal) Diabetes Stroke Grandfather (Paternal) Cancer Other No family history of adverse response to anesthesia No family history of bleeding disorder Denies family history of Ovarian cancer Prostate cancer Deep vein thrombosis Breast cancer Colorectal cancer Pulmonary embolism Social History (Updated 04/06/22 @ 11:52 by Cristiano Ham) Smoking Status: Former smoker Tobacco Type: Cigarettes Age Started Using Tobacco: 21; packs per day: 1; Years Smoked: 40; Second Hand Exposure: No; Hx Alcohol Use: Yes Alcohol type: beer Hx Substance Use: No Preferred Language: Kinyarwanda Communication Ability: Effective Visual Impairment: No Limitations Hearing Ability: Normal Sports Physiologist Required: No Beliefs That Will Affect Care: None marital status: Current Living Situation: Spouse Current Living Situation Comment: lives in [place] current occupational status: retired 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 How many Children do You have: 2 Feels Safe at Home: Yes Diet Comment: regular caffeine: Yes during the past year weight has: remained stable Dental Care, Regularly: Yes Physical Activity Frequency: Daily Seatbelt Use: always Sunscreen Use: Yes Assistive Devices: CPAP Review of Systems Review of Systems: gen - subjective fevers; chills; lack of appetite last few days; fatigue eyes - no change in vision HENT - runny nose, nasal congestion, sore throat cv - no chest pain, no pleuritic pain, no tightness pulm - cough, congestion, wheezing, sob, morris all present GI - some diarrhea; no nausea or vomiting; no blood in stool; no abd pain - no dysuria musculo - body aches present neuro - no headache, no paresthesias endo - no diabetes lymph - no enlarged nodes psych - no anxiety or depression skin - no rash Physical Exam Physical Exam: gen - looks sick but nontoxic, coughing/wheezing eyes - lens implants b/l, PERRL mouth - MMM, no lesions, mild posterior throat erythema neck - no JVD, no thyroid masses heart - RRR, s1 s2, no murmur lungs - diffuse wheezes/rhonchi b/l, no rales, no increased work of breathing abd - soft NT ND BS+; no HSM ext - no edema, pulses 2+ b/l skin - no rash neuro - strength 5/5 x 4 exts; no facial droop lymph - no enlarged cervical nodes b/l psych - a/o x 3 Results & Data Results & Data ([facility]) Vital Signs (Past 12 Hours) Vital Signs Temp Pulse Pulse Resp BP BP Pulse Ox 04/06/22 10:59 93 04/06/22 10:59 87 L 04/06/22 09:47 58 L 18 131/82 95 04/06/22 08:38 60 16 94 04/06/22 08:29 20 94 04/06/22 08:29 87 L 04/06/22 08:29 04/06/22 08:30 36.4 C L 65 18 157/67 H 91 O2 Del Method O2 Flow Rate 04/06/22 10:59 Nasal Cannula 2 04/06/22 10:59 Room Air 04/06/22 09:47 Nasal Cannula 2 04/06/22 08:38 Nasal Cannula 2 04/06/22 08:29 Nasal Cannula 2 04/06/22 08:29 Room Air 0 04/06/22 08:29 Nasal Cannula 2 04/06/22 08:30 Room Air Laboratory Results Laboratory Results - last 24 hr 04/06/22 04/06/22 04/06/22 09:00 09:00 09:00 WBC 6.00 RBC 3.98 Hgb 13.1 Hct 39.8 MCV 100.0 MCH 32.9 MCHC 32.9 RDW Std Deviation 48.5 H RDW Coeff of Soraida 13.1 Plt Count 239 MPV 9.4 Immature Gran % (Auto) 0.3 Neut % (Auto) 37.5 Lymph % (Auto) 35.7 [place] % (Auto) 19.5 Eos % (Auto) 6.5 Baso % (Auto) 0.5 Neut # (Auto) 2.25 Lymph # (Auto) 2.14 [place] # (Auto) 1.17 H Eos # (Auto) 0.39 Baso # (Auto) 0.03 Immature Gran # (Auto) 0.02 PT 10.4 INR 1.0 APTT 23.1 PTT Ratio 0.8 VBG pH VBG pCO2 VBG pO2 VBG HCO3 VBG O2 Saturation VBG Base Excess Sodium 139 Potassium 3.9 Chloride 107 Carbon Dioxide 23 Anion Gap 9 BUN 17 Creatinine 0.99 Est Cr Clr Drug Dosing 58.2 Est GFR ( Amer) 65.1 Est GFR (Non-Af Amer) 56.1 BUN/Creatinine Ratio 17.2 Glucose 93 Calcium 8.8 Total Bilirubin 0.7 AST 24 ALT 18 Alkaline Phosphatase 86 Troponin I High Sens 6.1 Total Protein 6.9 Albumin 3.9 Globulin 3.0 Albumin/Globulin Ratio 1.3 SARS-CoV-2 (PCR) Influenza Type A (PCR) Influenza Type B (PCR) RSV (RT-PCR) 04/06/22 04/06/22 09:17 09:35 WBC RBC Hgb Hct MCV MCH MCHC RDW Std Deviation RDW Coeff of Soraida Plt Count MPV Immature Gran % (Auto) Neut % (Auto) Lymph % (Auto) [place] % (Auto) Eos % (Auto) Baso % (Auto) Neut # (Auto) Lymph # (Auto) [place] # (Auto) Eos # (Auto) Baso # (Auto) Immature Gran # (Auto) PT INR APTT PTT Ratio VBG pH 7.40 VBG pCO2 44 VBG pO2 32 VBG HCO3 27 VBG O2 Saturation 60.9 VBG Base Excess 2.0 Sodium Potassium Chloride Carbon Dioxide Anion Gap BUN Creatinine Est Cr Clr Drug Dosing Est GFR ( Amer) Est GFR (Non-Af Amer) BUN/Creatinine Ratio Glucose Calcium Total Bilirubin AST ALT Alkaline Phosphatase Troponin I High Sens Total Protein Albumin Globulin Albumin/Globulin Ratio SARS-CoV-2 (PCR) POSITIVE A* Influenza Type A (PCR) Negative Influenza Type B (PCR) Negative RSV (RT-PCR) Negative Diagnostic Findings Chest X-Ray 04/06/22 08:38 XR chest 1V portable HISTORY: Dyspnea COMPARISON: Chest 12/23/2021. FINDINGS: No pneumothorax. No pleural effusions. Left basilar linear densities favor subsegmental atelectasis. Otherwise, lungs are clear. The heart is normal in size. Calcified plaque again noted within the aortic knob. Cervical spinal fusion hardware is partially visualized. No evidence for pulmonary edema. IMPRESSION: No significant change compared to the prior study. No acute process. ACT 112: Negative or not required by law. Electronically signed by: Riley Ward M.D. 04/06/2022 9:22 AM EKG - my reading - NSR, no ST changes, intervals wnl Code Status & VTE Plan Code Status full PG Care Time/CCT Total # of Minutes Spent Total Time Spent with Patient: Total time spent is greater than 50% in coordination of care (as documented) at patient's floor/unit and/or counseling patient: Coding Level of Care Code 09044 Initial Inpt Care Lvl 3 Diagnoses COVID-19 U07.1 COPD exacerbation J44.1 LPRD (laryngopharyngeal reflux disease) K21.9 HTN (hypertension) I10 RLS (restless legs syndrome) G25.81 CAD (coronary artery disease) I25.10 Hyperlipidemia E78.5 Anxiety and depression F41.9; F32.9 Obstructive sleep apnea G47.33 DVT prophylaxis Z29.9
[2022-04-06] MEDS ORDERED: REMDESIVIR 200 MG in SODIUM CHLORIDE 0.9% 210 ML IV STA (11:22)
[2022-04-06] MEDS ORDERED: ALBUT/IPRATROP 3MG/0.5MG NEB 3 ML VIAL NEB STA (11:36)
[2022-04-06] MEDS ORDERED: NITROGLYCERIN SL 0.4 MG/TAB TAB SL PRN (14:05)
[2022-04-06] MEDS ORDERED: ACETAMINOPHEN 325 MG TAB PO PRN (14:05)
[2022-04-06] MEDS ORDERED: ONDANSETRON INJ 2 MG/ML 2 ML VIAL IV PRN (14:05)
[2022-04-06] MEDS: ALBUT/IPRATROP 3MG/0.5MG NEB 3 ML VIAL NEB SCH ×2 (14:47→19:45)
[2022-04-06] MEDS: BENZONATATE 100 MG CAPSULE PO SCH ×2 (15:51→20:49)
[2022-04-06] MEDS: NSS + 20MEQ KCL 20 MEQ/1,000 ML BAG IV SCH ×2 (16:09→16:17)
[2022-04-06] MEDS: PRAMIPEXOLE DIHYDROCHLO 0.25 MG TAB PO SCH ×2 (16:24→20:21)
[2022-04-06] MEDS: FAMOTIDINE 20 MG TAB PO SCH (20:50)
[2022-04-06] MEDS: guaiFENesin 600 MG TABCR PO SCH (20:50)
[2022-04-06] MEDS: ENOXAPARIN INJ 40 MG/0.4 ML SYR SQ SCH (20:50)
[2022-04-06] MEDS: GABAPENTIN 100 MG CAP PO SCH (20:50)
--- NOTE | 2022-04-07 05:47 | Electrocardiogram Report ---
Test Reason : Blood Pressure : / mmHG Vent. Rate : 061 BPM Atrial Rate : 061 BPM P-R Int : 168 ms QRS Dur : 082 ms QT Int : 416 ms P-R-T Axes : 051 -12 045 degrees QTc Int : 418 ms Normal sinus rhythm Normal ECG When compared with ECG of 05-MAY-2018 18:29, No significant change was found Confirmed by Taqueria Butcher ([id number]) on 04/07/2022 5:46:57 AM Referred By: REFERRED SELF Confirmed By:Taqueria Butcher
[2022-04-07 06:25] LABS: Basophils # (auto) 0.01 K/uL (0-0.2); Basophils % (auto) 0.2 %; Hematocrit (blood only) 36.6 % (34.1-44.9); Immature Granulocytes # (auto) 0.03 K/uL (0.00-0.02); Immature Granulocytes % (auto) 0.5 %; Lymphocytes % (auto) 30.5 %; Mean Corpuscular Hemoglobin 32.7 pg (25.0-34.0); Mean Corpuscular Hgb Conc 32.8 g/dL (32.0-36.0); Mean Corpuscular Volume 99.7 fL (80.0-100.0); Mean Platelet Volume 10.4 fL (9.4-12.3); Monocytes # (auto) 0.75 K/uL (0.24-0.82); Monocytes % (auto) 12.7 %; Neutrophils # (auto) 3.32 K/uL (1.4-6.5); Neutrophils % (auto) 56.1 %; Platelet Count 232 K/uL (130-400); RDW Standard Deviation 47.8 fL (36.4-46.3); Red Blood Count 3.67 M/uL (3.93-5.22); White Blood Count 5.91 K/ul (4.8-10.8)
[2022-04-07 07:02] LABS: Anion Gap 6 (3-11); BUN Creatinine Ratio 23.1 (10-20); Blood Urea Nitrogen 21 mg/dl (6-23); Calcium 8.3 mg/dl (8.5-10.1); Carbon Dioxide 23 mmol/L (21-32); Chloride 109 mmol/L (98-107); Creatinine Clr Calc Pharmacy 63.3 ml/min; Est GFR (Non-African American) 62.2 ml/min; Glucose 116 mg/dl (70-99(Fasting)); Sodium 138 mmol/L (136-145)
[2022-04-07] MEDS: ALBUT/IPRATROP 3MG/0.5MG NEB 3 ML VIAL NEB SCH (07:17)
[2022-04-07 07:41] LABS: D Dimer 2790 ug/L FEU (0-500)
[2022-04-07] MEDS: FAMOTIDINE 20 MG TAB PO SCH ×2 (08:26→20:29)
[2022-04-07] MEDS: ENOXAPARIN INJ 40 MG/0.4 ML SYR SQ SCH ×2 (08:26→20:27)
[2022-04-07] MEDS: guaiFENesin 600 MG TABCR PO SCH ×2 (08:26→20:30)
[2022-04-07] MEDS: GABAPENTIN 100 MG CAP PO SCH ×2 (08:29→20:29)
[2022-04-07] MEDS: FLUTICASONE FUROATE 100MCG 14 PUFFS/INHALER INH SCH (08:33)
[2022-04-07] MEDS: UMECLIDINIUM/VILANTEROL 62.5/25MCG 7 PUFFS/INHALER INH SCH (08:33)
[2022-04-07] MEDS: PANTOprazole 40 MG TAB PO SCH (08:34)
[2022-04-07] MEDS: FLUoxetine HCL 20 MG CAP PO SCH (08:34)
[2022-04-07] MEDS: BENZONATATE 100 MG CAPSULE PO SCH ×3 (08:34→20:27)
[2022-04-07] MEDS: ATORVASTATIN 40 MG TAB PO SCH (08:35)
[2022-04-07] MEDS ORDERED: OPTIRAY 300 500mL IV ONE (10:10)
[2022-04-07] MEDS ORDERED: ALBUT/IPRATROP 3MG/0.5MG NEB 3 ML VIAL NEB PRN (10:22)
--- NOTE | 2022-04-07 10:34 | CT Scan Report ---
CT angio chest PE protocol CLINICAL HISTORY: COVID-19, COPD, elevated dimer; eval PE, pneumonia TECHNIQUE: Multidetector row helical CT of the chest was performed with angiographic protocol. Dooley l and sagittal reformations were obtained. Coronal and sagittal MIPS were obtained from the axial cynthia a set and were submitted for review. Automated dose lowering techniques and/or adjustment according to patient size were utilized for this exam. CT DOSE: 559.46 mGycm Comparison: Comparison is made to CT chest 07/27/2021 FINDINGS: Lungs and pleura: Diffuse centrilobular emphysema is seen most prominent in the upper lobes and there is peripheral reticular interstitial scarring most prominent in the lung bases. There is a 5 mm pulm onary nodule in the right lower lobe (series 4 image 118), this appears essentially stable from prior exam. Atelectasis is noted in the left lung base. Heart and pericardium: Heart size is normal. No pericardial effusion. Vessels: No evidence of pulmonary embolism. Mediastinum and jagjit: Unremarkable. Chest wall and lower neck: Unremarkable. Abdomen: Unremarkable. Bones: Degenerative changes in the thoracic spine. Cervical fixation hardware is partially visualized . IMPRESSION: 1. No evidence of pulmonary embolism. 2. Emphysema and scarring are again noted. 3. Interval stability of 5 mm pulmonary nodule. ACT 112: Negative or not required by law. Electronically signed by: Elier Khan M.D. 04/07/2022 10:33 AM
[2022-04-07] MEDS ORDERED: dexAMETHasone 6 MG in SYRINGE 0 ML IV SCH (12:00)
[2022-04-07] MEDS: REMDESIVIR 100 MG in SODIUM CHLORIDE 0.9% 230 ML IV SCH (12:13)
[2022-04-07] MEDS: PRAMIPEXOLE DIHYDROCHLO 0.25 MG TAB PO SCH ×2 (16:26→20:27)
[2022-04-07] MEDS: MELATONIN 3 MG TAB PO SCH (20:40)
--- NOTE | 2022-04-07 23:10 | Hospitalist Progress Note ---
Date of Service April 07, 2022 Assessment & Plan (1) COVID-19: Plan: With resulting COPD exacerbation. Remains hypoxic but O2 requirement is mild - 2 L via NC. CTA chest today obtained 2nd to elevated d-dimer -- NO PE, NO pneumonia. Day #2 today of Remdesivir. Day #2 today of dexamethasone. Cont Duonebs q4h prn. Flutter valve/incentive spirometer. Mucinex/tessalon. Telemetry with airborne precautions. NC o2 to keep sats 90-92%. Cont home inhalers. Lovenox BID for DVT proph. For ongoing cough - add robitussin AC. Melatonin HS for sleep. (2) COPD exacerbation: Plan: 2nd to COVID-19 infection as above in #1. Slightly improved today. Cont Steroids, nebs, Remdesivir, etc. Hold off on antibiotics for superinfection for now due to negative CTA chest for pneumonia and lack of sputum production. (3) LPRD (laryngopharyngeal reflux disease): Plan: Cont H2 khurram. Cont PPI. She sounds like she has esophageal dysmotility leading to dysphagia but can't rule out stricture, etc. Will ask speech to see in consult for swallow eval. 01/2021 - EGD by Dr Baker -- esophageal ulcers, gastritis. 10/2020 - in-office laryngoscopy by Dr Romero -- Details: Following the application of topical lidocaine and afrin, the flexible laryngoscope was inserted into the patient's nasal cavity. The septum, inferior turbinates, and nasal mucosa were normal. The nasopharynx was normal. THERE WERE COPIOUS THICK SECRETIONS SCATTERED THROUGHOUT THE SUPRAGLOTTIS AND LAYERED ONTO THE VOCAL FOLDS. THERE IS VERY MILD POSTCRICOID EDEMA AND INFLAMMATION. The base of tongue, vallecula, epiglottis, arytenoids, aryepiglottic folds, false vocal folds, and pyriform sinuses were normal without masses or lesions. The true vocal folds were normal without masses or lesions, height mismatch, or shortening. There was normal true mobility bilaterally. There was adequate closure with no glottic gap. There was normal mucosal wave on stroboscopy. There was no pooling of secretions or aspiration/penetration noted. The patient tolerated the procedure well. (4) HTN (hypertension): Plan: HRs were in the 50s on low-dose beta khurram. metoprolol still on hold. BPs acceptable. (5) RLS (restless legs syndrome): Plan: Cont pramipexole per home dosing. (6) CAD (coronary artery disease): Plan: 2014 - nonobstructive - LM: normal. LAD: normal. LCx: normal. Large OM: 20% mid stenosis. RCA: ostial 40% stenosis. No recent ischemic symptoms. Cont statin. (7) Hyperlipidemia: Plan: Cont statin agent. LFTs noted to be wnl. AST/ALT to be checked daily while on Remdesivir. (8) Anxiety and depression: Plan: Cont fluoxetine daily. (9) Obstructive sleep apnea: Plan: Per outpatient pulmonary clinic notes she is no longer using CPAP. If she develops respiratory compromise/worsening COVID illness low threshold for CPAP. (10) DVT prophylaxis: Plan: lovenox 40mg BID Plan add melatonin for sleep updated at bedside PT, OT Admission and Anticipated Discharge Date Admission Date: April 06, 2022 Subjective c/o ongoing cough to the point that her "ribs hurt" minimal sputum ongoing dyspnea on exertion continued wheezing appetite very good no fevers ongoing fatigue tele overnight wnl came to visit her today Review of Systems Review of Systems: gen - no fevers or chills cv - no central cp or tightness but having pain below ribs on right pulm - cough, congestion, wheezing, dyspnea, MARTINEZ GI - no abd pain, nausea, vomiting; some mild diarrhea HENT - c/o dysphagia for solids - points to throat as site of this; has this at home as well Physical Exam Physical Exam: gen - continued coughing, looks tired mouth - MMM, no lesions neck - no JVD heart - RRR, s1 s2, no murmur lungs - still with diffuse wheezes but improved today; airation also improved abd - soft NT ND BS+; no HSM ext - no edema, pulses 2+ b/l psych - slightly confused today Results & Data Results & Data ([facility]) Vital Signs (Past 12 Hours) Vital Signs Temp Pulse Resp BP BP Pulse Ox O2 Del Method 04/07/22 20:30 36.6 C 67 18 130/74 92 Nasal Cannula 04/07/22 20:45 Nasal Cannula 04/07/22 15:15 Nasal Cannula 04/07/22 11:19 36.3 C L 57 L 20 145/85 H 93 Nasal Cannula O2 Flow Rate 08/31/22 20:30 2 04/07/22 20:45 2 04/07/22 15:15 2 04/07/22 11:19 2 Laboratory Results Laboratory Results - last 24 hr 04/07/22 04/07/22 04/07/22 05:30 05:30 05:30 WBC 5.91 RBC 3.67 L Hgb 12.0 Hct 36.6 MCV 99.7 MCH 32.7 MCHC 32.8 RDW Std Deviation 47.8 H RDW Coeff of Soraida 13.0 Plt Count 232 MPV 10.4 Immature Gran % (Auto) 0.5 Neut % (Auto) 56.1 Lymph % (Auto) 30.5 [place] % (Auto) 12.7 Eos % (Auto) 0.0 Baso % (Auto) 0.2 Neut # (Auto) 3.32 Lymph # (Auto) 1.80 [place] # (Auto) 0.75 Eos # (Auto) 0.00 Baso # (Auto) 0.01 Immature Gran # (Auto) 0.03 H D-Dimer 2790 H* Sodium 138 Potassium TNP Chloride 109 H Carbon Dioxide 23 Anion Gap 6 BUN 21 Creatinine 0.91 Est Cr Clr Drug Dosing 63.3 Est GFR ( Amer) 72.0 Est GFR (Non-Af Amer) 62.2 BUN/Creatinine Ratio 23.1 H Glucose 116 H Calcium 8.3 L 04/07/22 07:42 WBC RBC Hgb Hct MCV MCH MCHC RDW Std Deviation RDW Coeff of Soraida Plt Count MPV Immature Gran % (Auto) Neut % (Auto) Lymph % (Auto) [place] % (Auto) Eos % (Auto) Baso % (Auto) Neut # (Auto) Lymph # (Auto) [place] # (Auto) Eos # (Auto) Baso # (Auto) Immature Gran # (Auto) D-Dimer Sodium Potassium 4.2 Chloride Carbon Dioxide Anion Gap BUN Creatinine Est Cr Clr Drug Dosing Est GFR ( Amer) Est GFR (Non-Af Amer) BUN/Creatinine Ratio Glucose Calcium Diagnostic Findings Chest CTA 04/07/22 08:51 CT angio chest PE protocol CLINICAL HISTORY: COVID-19, COPD, elevated dimer; eval PE, pneumonia TECHNIQUE: Multidetector row helical CT of the chest was performed with angiographic protocol. Coronal and sagittal reformations were obtained. Coronal and sagittal MIPS were obtained from the axial data set and were submitted for review. Automated dose lowering techniques and/or adjustment according to patient size were utilized for this exam. CT DOSE: 559.46 mGycm Comparison: Comparison is made to CT chest 07/27/2021 FINDINGS: Lungs and pleura: Diffuse centrilobular emphysema is seen most prominent in the upper lobes and there is peripheral reticular interstitial scarring most prominent in the lung bases. There is a 5 mm pulmonary nodule in the right lower lobe (series 4 image 118), this appears essentially stable from prior exam. Atelectasis is noted in the left lung base. Heart and pericardium: Heart size is normal. No pericardial effusion. Vessels: No evidence of pulmonary embolism. Mediastinum and jagjit: Unremarkable. Chest wall and lower neck: Unremarkable. Abdomen: Unremarkable. Bones: Degenerative changes in the thoracic spine. Cervical fixation hardware is partially visualized. IMPRESSION: 1. No evidence of pulmonary embolism. 2. Emphysema and scarring are again noted. 3. Interval stability of 5 mm pulmonary nodule. ACT 112: Negative or not required by law. Electronically signed by: Elier Khan M.D. 04/07/2022 10:33 AM PG Care Time/CCT Total # of Minutes Spent Total Time Spent with Patient: Total time spent is greater than 50% in coordination of care (as documented) at patient's floor/unit and/or counseling patient: Coding Level of Care Code 14255 Subseq Hosp Care Lvl 3 Diagnoses COVID-19 U07.1 COPD exacerbation J44.1 LPRD (laryngopharyngeal reflux disease) K21.9 HTN (hypertension) I10 RLS (restless legs syndrome) G25.81 CAD (coronary artery disease) I25.10 Hyperlipidemia E78.5 Anxiety and depression F41.9; F32.9 Obstructive sleep apnea G47.33 DVT prophylaxis Z29.9
[2022-04-08 07:47] LABS: BUN Creatinine Ratio 23.9 (10-20); Calcium 9.3 mg/dl (8.5-10.1); Creatinine Clr Calc Pharmacy 65.4 ml/min; Est GFR (Non-African American) 64.7 ml/min; Potassium 4.6 mmol/L (3.5-5.1)
[2022-04-08] MEDS: dexAMETHasone 8 MG in SYRINGE 0 ML IV SCH (07:52)
[2022-04-08] MEDS: BENZONATATE 100 MG CAPSULE PO SCH ×3 (07:52→20:16)
[2022-04-08] MEDS: guaiFENesin 600 MG TABCR PO SCH ×2 (07:52→20:17)
[2022-04-08] MEDS: FLUoxetine HCL 20 MG CAP PO SCH (07:53)
[2022-04-08] MEDS: ATORVASTATIN 40 MG TAB PO SCH (07:53)
[2022-04-08] MEDS: PANTOprazole 40 MG TAB PO SCH (07:53)
[2022-04-08] MEDS: FAMOTIDINE 20 MG TAB PO SCH ×2 (07:53→20:17)
[2022-04-08] MEDS: FLUTICASONE FUROATE 100MCG 14 PUFFS/INHALER INH SCH (07:54)
[2022-04-08] MEDS: GABAPENTIN 100 MG CAP PO SCH ×2 (07:54→20:17)
[2022-04-08] MEDS: ENOXAPARIN INJ 40 MG/0.4 ML SYR SQ SCH ×2 (07:54→20:16)
[2022-04-08] MEDS: UMECLIDINIUM/VILANTEROL 62.5/25MCG 7 PUFFS/INHALER INH SCH (07:54)
[2022-04-08] MEDS: REMDESIVIR 100 MG in SODIUM CHLORIDE 0.9% 230 ML IV SCH (12:15)
[2022-04-08] MEDS: PRAMIPEXOLE DIHYDROCHLO 0.25 MG TAB PO SCH (14:55)
[2022-04-08] MEDS ORDERED: Nursing to Pharmacy Communication SCH (16:45)
[2022-04-08] MEDS: MELATONIN 3 MG TAB PO SCH (20:17)
[2022-04-08] MEDS: guaiFENesin/CODEINE 100MG/10MG 5ML UDC PO PRN (20:17)
[2022-04-08] MEDS ORDERED: PRAMIPEXOLE DIHYDROCHLO 0.25 MG TAB PO SCH (21:00)
--- NOTE | 2022-04-08 21:25 | Hospitalist Progress Note ---
Date of Service April 08, 2022 Assessment & Plan (1) COVID-19: Plan: IMPROVING. COPD exacerbation also improving. O2 sats during the visit were 91-92% in RA. Day #3 today of Remdesivir. Day #3 today of dexamethasone. Cont Duonebs q4h prn. Flutter valve/incentive spirometer. Mucinex/tessalon. Telemetry with airborne precautions. NC prn o2 to keep sats 90-92%. Cont home inhalers. Lovenox BID for DVT proph. For ongoing cough - robitussin AC prn. Melatonin HS for sleep. If she leaves tomorrow for home -- 2-step ambulatory O2 test. (2) COPD exacerbation: Plan: 2nd to COVID-19 infection as above in #1. IMPROVED. Cont Steroids, nebs, Remdesivir, etc. Hold off on antibiotics for superinfection for now due to negative CTA chest for pneumonia. Await Sputum cx which is currently pending. (3) LPRD (laryngopharyngeal reflux disease): Plan: Cont H2 khurram. Cont PPI. She sounds like she has esophageal dysmotility leading to dysphagia but can't rule out stricture, etc. Speech recommending current diet and outpatient barium swallow. 01/2021 - EGD by Dr Baker -- esophageal ulcers, gastritis. 10/2020 - in-office laryngoscopy by Dr Romero -- Details: Following the application of topical lidocaine and afrin, the flexible laryngoscope was inserted into the patient's nasal cavity. The septum, inferior turbinates, and nasal mucosa were normal. The nasopharynx was normal. THERE WERE COPIOUS THICK SECRETIONS SCATTERED THROUGHOUT THE SUPRAGLOTTIS AND LAYERED ONTO THE VOCAL FOLDS. THERE IS VERY MILD POSTCRICOID EDEMA AND INFLAMMATION. The base of tongue, vallecula, epiglottis, arytenoids, aryepiglottic folds, false vocal folds, and pyriform sinuses were normal without masses or lesions. The true vocal folds were normal without masses or lesions, height mismatch, or shortening. There was normal true mobility bilaterally. There was adequate closure with no glottic gap. There was normal mucosal wave on stroboscopy. There was no pooling of secretions or aspiration/penetration noted. The patient tolerated the procedure well. (4) HTN (hypertension): Plan: HRs were in the 50s on low-dose beta khurram. metoprolol still on hold. BPs high perhaps due to steroids - add amlodipine 5mg daily. (5) RLS (restless legs syndrome): Plan: Cont pramipexole per home dosing. (6) CAD (coronary artery disease): Plan: 2014 - nonobstructive - LM: normal. LAD: normal. LCx: normal. Large OM: 20% mid stenosis. RCA: ostial 40% stenosis. No recent ischemic symptoms. Cont statin. (7) Hyperlipidemia: Plan: Cont statin agent. LFTs noted to be wnl. (8) Anxiety and depression: Plan: Cont fluoxetine daily. (9) Obstructive sleep apnea: Plan: Per outpatient pulmonary clinic notes she is no longer using CPAP. (10) DVT prophylaxis: Plan: lovenox 40mg BID d-dimer markedly elevated this admission - consider xarelto 10mg daily x 35 days post-d/c for DVT proph Plan updated by phone this evening PT, OT home next 1-2 days Admission and Anticipated Discharge Date Admission Date: April 06, 2022 Subjective feels better today less cough scant sputum production - coughed up a plug of mucous x 1 today only less wheezing ambulating in room without dyspnea eating and drinking well still with mild rib pain on right with coughing - never got the heating pad slept well last pm w/ melatonin tele wnl overnight Review of Systems Review of Systems: gen - no fevers; energy fair cv - no central cp pulm - no dyspnea at rest or with activity GI - no further diarrhea; no nausea Physical Exam Physical Exam: gen - looks much better today mouth - MMM, no lesions neck - no JVD heart - RRR, s1 s2, no murmur lungs -wheezes MUCH better today;airation very good today; no rales; no increased work of breathing abd - soft NT ND BS+; no HSM ext - no edema, pulses 2+ b/l psych - more awake/oriented today Results & Data Results & Data ([facility]) Vital Signs (Past 12 Hours) Vital Signs Temp Pulse Pulse Resp BP Pulse Ox O2 Del Method 04/08/22 20:09 36.7 C 60 18 161/80 H 91 Room Air 04/08/22 16:06 64 04/08/22 16:21 36.7 C 65 16 123/73 94 Nasal Cannula O2 Flow Rate 04/08/22 20:09 04/08/22 16:06 04/08/22 16:21 2 Laboratory Results Laboratory Results - last 24 hr 04/08/22 06:54 Sodium 138 Potassium 4.6 Chloride 106 Carbon Dioxide 25 Anion Gap 7 BUN 21 Creatinine 0.88 Est Cr Clr Drug Dosing 65.4 Est GFR ( Amer) 75.0 Est GFR (Non-Af Amer) 64.7 BUN/Creatinine Ratio 23.9 H Glucose 106 H Calcium 9.3 AST 18 ALT 16 PG Care Time/CCT Total # of Minutes Spent Total Time Spent with Patient: Total time spent is greater than 50% in coordination of care (as documented) at patient's floor/unit and/or counseling patient: Coding Level of Care Code 42754 Subseq Hosp Care Lvl 3 Diagnoses COVID-19 U07.1 COPD exacerbation J44.1 LPRD (laryngopharyngeal reflux disease) K21.9 HTN (hypertension) I10 RLS (restless legs syndrome) G25.81 CAD (coronary artery disease) I25.10 Hyperlipidemia E78.5 Anxiety and depression F41.9; F32.9 Obstructive sleep apnea G47.33 DVT prophylaxis Z29.9
[2022-04-09 07:15] LABS: Calcium 9.4 mg/dl (8.5-10.1); Creatinine Clr Calc Pharmacy 57.5 ml/min; Est GFR (African American) 64.3 ml/min; Est GFR (Non-African American) 55.5 ml/min
[2022-04-09] MEDS: ENOXAPARIN INJ 40 MG/0.4 ML SYR SQ SCH (08:41)
[2022-04-09] MEDS: FAMOTIDINE 20 MG TAB PO SCH (08:41)
[2022-04-09] MEDS: ATORVASTATIN 40 MG TAB PO SCH (08:41)
[2022-04-09] MEDS: BENZONATATE 100 MG CAPSULE PO SCH (08:41)
[2022-04-09] MEDS: dexAMETHasone 8 MG in SYRINGE 0 ML IV SCH (08:41)
[2022-04-09] MEDS: FLUTICASONE FUROATE 100MCG 14 PUFFS/INHALER INH SCH (08:42)
[2022-04-09] MEDS: GABAPENTIN 100 MG CAP PO SCH (08:42)
[2022-04-09] MEDS: FLUoxetine HCL 20 MG CAP PO SCH (08:42)
[2022-04-09] MEDS: guaiFENesin/CODEINE 100MG/10MG 5ML UDC PO PRN (08:43)
[2022-04-09] MEDS: PANTOprazole 40 MG TAB PO SCH (08:43)
[2022-04-09] MEDS: UMECLIDINIUM/VILANTEROL 62.5/25MCG 7 PUFFS/INHALER INH SCH (08:43)
[2022-04-09] MEDS: guaiFENesin 600 MG TABCR PO SCH (08:43)
[2022-04-09] MEDS ORDERED: amLODIPine BESYLATE 5 MG TAB PO SCH (09:00)
[2022-04-09] MEDS ORDERED: LIDOCAINE 5% 1 PATCH TD SCH (11:30)
[2022-04-09] MEDS: REMDESIVIR 100 MG in SODIUM CHLORIDE 0.9% 230 ML IV SCH (11:32)
--- NOTE | 2022-04-09 12:21 | Discharge Summary ---
Date of Service date of admission - April 06, 2022 date of discharge - April 09, 2022 Admission HPI Per Admitting Provider Pleasant 76yo female with history of COPD, HTN, nonobstructive CAD, hyperlipidemia, and KELLY (no longer using CPAP) presents from home with 5 days of cough, shortness of breath, wheezing, dyspnea on exertion, sore throat, nasal congestion, fatigue, myalgias, and subjective fevers/chills. Cough is largely nonproductive although has some yellow sputum on occasion. She and her family attended [employer] and tented for the entire duration (11 days). She had an exposure to COVID-19 with an inlaw (12 year old boy) having been diagnosed with COVID in the last few days. She self-tested for COVID last pm at home and her test was positive. Upon presentation today her O2 sats were 87% in room air. Attempts to remove the O2 were not successful - late in the ER visit her sats were 88% again after removing the NC O2. Of note - the patient is fully vaccinated and has received a booster. Principal Diagnosis 1. COVID-19 infection 2. COPD with exacerbation Discharge Exam gen - looks good, NAD, occasional cough mouth - MMM, no lesions neck - no JVD heart - RRR, s1 s2, no murmur lungs - minimal wheeze b/l; good airation; no rales; no increased work of breathing abd - soft NT ND BS+; no HSM ext - no edema, pulses 2+ b/l psych - a/o x 3 Discharge Data Allergies Allergy/AdvReac Type Severity Reaction Status Date / Time No Known Drug Allergies Allergy Unknown Unknown Verified 04/06/22 16:03 cat dander AdvReac Intermediate WATERY Verified 04/06/22 16:03 ITCHY EYES, NOSE Consultations Physical therapy Speech therapy Procedures Performed 2-step ambulatory O2 test -- 2 liters NC O2 needed with ambulation Ordered Studies Chest X-Ray 04/06/22 08:38 XR chest 1V portable HISTORY: Dyspnea COMPARISON: Chest 12/23/2021. FINDINGS: No pneumothorax. No pleural effusions. Left basilar linear densities favor subsegmental atelectasis. Otherwise, lungs are clear. The heart is normal in size. Calcified plaque again noted within the aortic knob. Cervical spinal fusion hardware is partially visualized. No evidence for pulmonary edema. IMPRESSION: No significant change compared to the prior study. No acute process. ACT 112: Negative or not required by law. Electronically signed by: Riley Ward M.D. 04/06/2022 9:22 AM Chest CTA 04/07/22 08:51 CT angio chest PE protocol CLINICAL HISTORY: COVID-19, COPD, elevated dimer; eval PE, pneumonia TECHNIQUE: Multidetector row helical CT of the chest was performed with angiographic protocol. Coronal and sagittal reformations were obtained. Coronal and sagittal MIPS were obtained from the axial data set and were submitted for review. Automated dose lowering techniques and/or adjustment according to patient size were utilized for this exam. CT DOSE: 559.46 mGycm Comparison: Comparison is made to CT chest 07/27/2021 FINDINGS: Lungs and pleura: Diffuse centrilobular emphysema is seen most prominent in the upper lobes and there is peripheral reticular interstitial scarring most prominent in the lung bases. There is a 5 mm pulmonary nodule in the right lower lobe (series 4 image 118), this appears essentially stable from prior exam. Atelectasis is noted in the left lung base. Heart and pericardium: Heart size is normal. No pericardial effusion. Vessels: No evidence of pulmonary embolism. Mediastinum and jagjit: Unremarkable. Chest wall and lower neck: Unremarkable. Abdomen: Unremarkable. Bones: Degenerative changes in the thoracic spine. Cervical fixation hardware is partially visualized. IMPRESSION: 1. No evidence of pulmonary embolism. 2. Emphysema and scarring are again noted. 3. Interval stability of 5 mm pulmonary nodule. ACT 112: Negative or not required by law. Electronically signed by: Elier Khan M.D. 04/07/2022 10:33 AM Chest X-Ray 04/09/22 11:24 XR chest 1V portable HISTORY: COVID 19, pain R costal margin; eval R pneumonia COMPARISON: Chest CTA 04/07/2022. FINDINGS: No pneumothorax. No pleural fusions. The cardiac silhouette is normal in size. There is a mildly tortuous thoracic aorta. Cervical spinal fusion hardware is again noted. No focal lung consolidations to suggest pneumonia. No evidence for pulmonary edema. Partially visualized lumbar spinal fusion hardware. A few left basilar linear densities favor subsegmental atelectasis. This has improved in the interval. IMPRESSION: No new focal lung consolidations to suggest pneumonia. ACT 112: Negative or not required by law. Electronically signed by: Riley Ward M.D. 04/09/2022 12:25 PM Hospital Course (1) COVID-19: Patient presented with several days of respiratory and flu-like symptoms. Tested positive for COVID-19 at ER presentation. In the ER had O2 sats <88% in room air and lung exam was consistent with COPD exacerbation. Admitted to airborne isolation and started on IV Remdesivir and IV dexamethasone. Received 4 doses of Remdesivir and steroids while here along with nebs, pulmonary toilet, and oxygen. 2-step ambulatory O2 test showed the need for 2 liters NC O2 with activity/ambulation only. She will complete 6 more days of oral dexamethasone 6mg daily after discharge. She was encouraged to continue flutter valve & pulmonary toilet. She was given a spacer device to use with her albuterol MDI at home. (2) COPD exacerbation: 2nd to COVID-19 infection as above in #1. IMPROVED with steroids, etc. CTA chest was negative for pneumonia. Sputum culture grew normal tiburcio only. She will complete a course of oral dexamethasone after discharge. (3) LPRD (laryngopharyngeal reflux disease): Cont H2 khurram. Cont PPI. Patient reported some mild dysphagia symptoms during the stay. Speech recommending current diet (minced/moist) and outpatient barium swallow examination. Prior studies - 01/2021 - EGD by Dr Baker -- esophageal ulcers, gastritis. 10/2020 - in-office laryngoscopy by Dr Romero -- Details: Following the application of topical lidocaine and afrin, the flexible laryngoscope was inserted into the patient's nasal cavity. The septum, inferior turbinates, and nasal mucosa were normal. The nasopharynx was normal. THERE WERE COPIOUS THICK SECRETIONS SCATTERED THROUGHOUT THE SUPRAGLOTTIS AND LAYERED ONTO THE VOCAL FOLDS. THERE IS VERY MILD POSTCRICOID EDEMA AND INFLAMMATION. The base of tongue, vallecula, epiglottis, arytenoids, aryepiglottic folds, false vocal folds, and pyriform sinuses were normal without masses or lesions. The true vocal folds were normal without masses or lesions, height mismatch, or shortening. There was normal true mobility bilaterally. There was adequate closure with no glottic gap. There was normal mucosal wave on stroboscopy. There was no pooling of secretions or aspiration/penetration noted. The patient tolerated the procedure well. (4) HTN (hypertension): HRs were in the 50s on low-dose beta khurram. Thus her metoprolol was stopped. In ebonie of metoprolol amlodipine 5mg daily was added. (5) RLS (restless legs syndrome): Cont pramipexole. (6) CAD (coronary artery disease): 2015 - heart catheterization showed nonobstructive CAD as follows: LM: normal. LAD: normal. LCx: normal. Large OM: 20% mid stenosis. RCA: ostial 40% stenosis. No recent ischemic symptoms. Cont statin. (7) Hyperlipidemia: Cont statin agent. LFTs noted to be wnl while here. (8) Anxiety and depression: Cont fluoxetine daily. (9) Obstructive sleep apnea: Per outpatient pulmonary clinic notes she is no longer using CPAP. (10) DVT prophylaxis: Lovenox 40mg BID was utiliized during the stay. At discharge, given markedly elevated d-dimer (2790) seen during her illness, advised - Xarelto 10mg daily x 30 days post-d/c for DVT prophylaxis. Total Time Total Time Spent Total Time Spent (In Minutes): 45 Discharge Plan Discharge Items Patient Disposition: Home - Self-Care Reason For Visit: COVID-19 infection; COPD exacerbation Discharge Diagnosis: 1. COPD exacerbation due to COVID-19 infection 2. 5mm pulmonary nodule in the right lung - UNCHANGED from prior CT scan 3. Need for home oxygen with activity due to #1 Activity: As commented below Activity Comment: Gradually increase your activities over the next 1-2 weeks Sexual Activity: Wait until after follow-up appointment Exercise/Sports: Wait until after follow-up appointment Driving/Machine Use: Resume 3 days after discharge Non-emergency contact: Primary Care Provider and Channel Marketing Manager Call non-emergency contact if: you have any medication questions, your symptoms worsen and you have a fever Follow-up/Referrals: Patricia Olvera DO [Primary Care Provider] - 04/20/22 10:20 am Ishmael Pérez MD [Physician] - (3-4 weeks; f/u from hospitalization for COVID infection) Diet: Regular Diet Texture: Mechanical soft (ground) Addtl Attending Provider Instructions: Mrs Garcia, You were hospitalized for COVID-19 infection. The COVID-19 virus caused your COPD to "flare up." We call this a COPD exacerbation. During a flare or exacerbation there is considerable cough, congestion, wheezing, shortness of breath, and often a need for supplemental oxygen. Multiple chest x-rays (including the one today) as well as your CT scan did NOT show pneumonia. You did not have blood clots in the lungs either on your CT scan. You were treated with Remdesivir anti-viral treatment for the COVID-19 as well as dexamethasone steroid. Your symptoms gradually improved and your breathing improved. You had no fever while here. We did a formal walking test on 04/09 to determine if you need oxygen at home. We did find that you need 2 liters of oxygen with walking/activity. You do not need to use oxygen while sleeping/napping or while sitting. Most importantly be sure to use the oxygen when you leave your home. DO NOT LET ANYONE SMOKE IN YOUR HOME THIS CAN LEAD TO A HOUSE FIRE. You likely have at least 1-2 more weeks of recovery at home from your COVID infection. You likely will have cough for another 1-2 weeks along with mild shortness of breath if you do too much activity. Hopefully the oxygen will be a temporary need. Recommendations - 1. dexamethasone steroid - 6mg once daily with food x 7 days. Start TOMORROW, 04/10/22. 2. codeine-based cough syrup - 5cc every 6 hours as needed for cough. Know that the codeine may make you sleepy. It can also cause constipation. DO NOT DRINK alcohol if you are using codeine-based cough syrup. DO NOT DRIVE A CAR if you are using the cough syrup. 3. xarelto low-dose blood thinner - this is to prevent blood clots in your legs & lungs while you are recovering from your COVID illness. Take Xarelto 10mg once daily x 30 days. First dose is TOMORROW, 04/10/22. See below. Be sure to give the Xarelto voucher to the pharmacist; the medication will be free with the voucher. 4. blood pressure medication - * STOP your metoprolol * START amlodipine 5mg once daily, first dose TOMORROW 04/10/22 * on occasion some people experience constipation from amlodipine * also on occasion some people experience swelling of their feet from amlodipine 5. for the next 5-7 days please use your albuterol with spacer device, 2 puffs every 4-6 hours, for cough/wheeze. After 5-7 days simply use it as needed. 6. oxygen - 2 liters of oxygen with activity/ambulation. 7. during your recovery you may be more tired than usual. This is normal. Your energy will gradually improve over the next 1-2 weeks. It is important to listen to your body and not "over do it". 8. Isolation at home - * please plan to spend the next 3 days at home in isolation; do not invite friends/family/neighbors to your home during this time; do not leave your home unless it is for an emergency; it is important to isolate because your are still likely contagious to others * on Tuesday you can re-enter the community / end isolation if - * you have had no fevers on Tuesday or Tuesday AND - * your symptoms are continuing to improve * when you end isolation please continue to mask in public until your cough is mostly gone 9. continue to use your flutter valve device several times a day for the next few days. 10. when resting please lay on your side rather than your back; this helps your breathing when you are on your side. 11. if you don't have one please purchase a "pulse oximeter" which is a device that goes on your finger and reads your oxygen levels in your blood. These can be purchased at [employer], [employer], [employer], etc. Check your pulse "ox" a few times daily. If you are consistently 90% or higher these are acceptable readings. If you are consistently less than 90% please seek medical attention. 12. you can use a heating pad on your sore ribs as desired. You can also purchase [id number] "salonpas" pain patches. Follow the directions on the box. The sore ribs/muscles will improve over the next week or so. The soreness is from all the coughing. Follow-up -- 1. see your family doctor within a week 2. see Dr Pérez, your lung doctor, in 3-4 weeks Return to [facility] if - * you have fevers over 100 degrees * you have worsening shortness of breath * you have chest pains * you have oxygen levels consistently less than 90% on your pulse oximeter * any other concerns It was our pleasure to care for you at [facility]! Please continue to feel better, Dr Ham Addtl Scenic Designer Provider Instructions: Blood thinner instructions: We are sending you home with an anticoagulant. These are also called "blood thinners." Anticoagulants thin your blood to help prevent blood clots of the legs & lungs. Your blood thinner is XARELTO. Your dose is 10mg once daily, and we recommend it for 30 days. First dose is on 04/10/22. * You should take your medication exactly as directed. * Never skip a dose. * Never take a double dose. If you miss a dose, take it as soon as you remember. Call your Primary Care doctor if you experience any of the following: * Swelling or Pain in your leg * Sudden, continuous pain deep in a muscle * Pain that worsens when you are active or when you stand still for a long time * Chest Pain * Sudden Shortness of Breath * Rapid or pounding heart beat * Fainting * Dizziness * Cough with blood or bloody sputum * Sweating more than normal * Bruises * Heavy or uncontrolled bleeding * Blood in your urine, stool or vomit * Black or tarry stools * Heavy nose bleeding Caring for Your Self at Home: * Avoid sitting, standing or lying down for long periods without moving your legs and feet * When traveling by car, stop to get out and move around at least once every 3 hours * On long airplane, train or bus rides, get up and move around when possible * If you can't get up, wiggle your toes and tighten your calves to keep your blood moving Pending Studies at Discharge: No Stand-Alone Forms: [facility], Smoking Cessation Medications and DC Order Prescriptions: New (DME) Oxygen Home Liters Per Minute See Rx Instructions .ROUTE .MEDSUPPLY Qty: 1 0RF Rx Instructions: 2 liters NC O2 with activity/ambulation. amlodipine [Norvasc] 5 mg Tablet 5 mg PO QAM Qty: 30 2RF Rx Instructions: for high blood pressure codeine-guaifenesin [Guaiatussin AC] 10-100 mg/5 mL Liquid 5 ml PO Q6H PRN (Reason: cough) Qty: 120 0RF Xarelto 10 mg tablet 10 mg PO DAILY Qty: 30 0RF Rx Instructions: start 04/10/22; take x 30 days. Continued atorvastatin 40 mg tablet 40 mg PO QAM Qty: 90 3RF omeprazole 40 mg capsule,delayed release(DR/EC) 40 mg PO QAM Qty: 90 2RF Rx Instructions: Take 30 mins before a meal with protein famotidine [Acid Airframe Technician (famotidine)] 20 mg tablet 20 mg PO PM Qty: 90 3RF fluoxetine 20 mg capsule 20 mg PO QAM Qty: 90 3RF pramipexole 0.25 mg tablet 0.25 mg PO .COMPLEX Qty: 270 1RF Rx Instructions: 0.25 mg PO take one tab at 4 PM, then take two tabs 2 hours before bedtime; gabapentin 100 mg capsule 200 mg PO BID 90 Days Qty: 360 1RF Trelegy Ellipta 100-62.5-25 mcg blister with device 1 inh inhalation DAILY Qty: 3 3RF Changed albuterol sulfate 90 mcg/actuation HFA aerosol inhaler 2 puff inhalation Q4H PRN (Reason: cough/wheeze/shortness of breath) Qty: 8.5 5RF Rx Instructions: use with "spacer" device Discontinued metoprolol succinate 25 mg Tablet Extended Release 24 Hr 25 mg PO QAM Qty: 0 Discharge Orders: Discharge Order (Routine); Ordered 04/09/22 Ordered By: Cristiano Paige/Other Patient Handouts: Caring for Someone Who Has COVID-19, Disinfecting Your Home of COVID-19, How COVID-19 Spreads, Simple Ways to Avoid COVID-19, COVID 19 Flu Differences Admission Data Admit Date/Time: 04/06/22 11:08 Attending Provider: Cristiano Ham Admit Provider: Cristiano Ham Primary Care Provider: Patricia Olvera Other Interventions: Discharge Summary Assessment (RN) Last Done: 04/09/22 14:23 Coding Level of Care Code D/C DAY MANAGEMENT >30 MINS Diagnoses COVID-19 U07.1 COPD exacerbation J44.1 LPRD (laryngopharyngeal reflux disease) K21.9 HTN (hypertension) I10 RLS (restless legs syndrome) G25.81 CAD (coronary artery disease) I25.10 Hyperlipidemia E78.5 Anxiety and depression F41.9; F32.9 Obstructive sleep apnea G47.33 DVT prophylaxis Z29.9
--- NOTE | 2022-04-09 12:26 | XRay Report ---
XR chest 1V portable HISTORY: COVID 19, pain R costal margin; eval R pneumonia COMPARISON: Chest CTA 04/07/2022. FINDINGS: No pneumothorax. No pleural fusions. The cardiac silhouette is normal in size. There is a m ildly tortuous thoracic aorta. Cervical spinal fusion hardware is again noted. No focal lung consolid ations to suggest pneumonia. No evidence for pulmonary edema. Partially visualized lumbar spinal fusi on hardware. A few left basilar linear densities favor subsegmental atelectasis. This has improved in the interval. IMPRESSION: No new focal lung consolidations to suggest pneumonia. ACT 112: Negative or not required by law. Electronically signed by: Riley Ward M.D. 04/09/2022 12:25 PM
== END 2022-04-09 15:02 | disposition home or self-care (01) | DRG 178 ==
LOC: ED 08:28 → EDINP 11:08 → 2W 14:11 → 2N 04-07 13:26
DX: U07.1 COVID-19; Z79.899 Other long term (current) drug therapy; G25.81 Restless legs syndrome; G47.33 Obstructive sleep apnea (adult) (pediatric); R91.1 Solitary pulmonary nodule; R09.02 Hypoxemia; I25.10 Atherosclerotic heart disease of native coronary artery without angina pectoris; I10 Essential (primary) hypertension; K21.9 Gastro-esophageal reflux disease without esophagitis; J44.0 Chronic obstructive pulmonary disease with (acute) lower respiratory infection; J44.1 Chronic obstructive pulmonary disease with (acute) exacerbation; F32.A Depression, unspecified; F41.9 Anxiety disorder, unspecified; R79.1 Abnormal coagulation profile; Z79.51 Long term (current) use of inhaled steroids; E78.5 Hyperlipidemia, unspecified; Z87.891 Personal history of nicotine dependence

== ENCOUNTER 2022-05-26 10:31 | Observation (INO) ==
[2022-05-26 11:15] LABS: Basophils # (auto) 0.04 K/uL (0-0.2); Basophils % (auto) 0.4 %; Eosinophils # (auto) 0.42 K/uL (0-0.50); Eosinophils % (auto) 4.6 %; Hematocrit (blood only) 36.8 % (34.1-44.9); Hemoglobin 12.4 g/dl (12.0-16.0); Immature Granulocytes # (auto) 0.02 K/uL (0.00-0.02); Immature Granulocytes % (auto) 0.2 %; Lymphocytes # (auto) 2.49 K/uL (1.2-3.4); Lymphocytes % (auto) 27.4 %; Mean Corpuscular Hemoglobin 32.7 pg (25.0-34.0); Mean Corpuscular Hgb Conc 33.7 g/dL (32.0-36.0); Mean Corpuscular Volume 97.1 fL (80.0-100.0); Mean Platelet Volume 10.1 fL (9.4-12.3); Monocytes # (auto) 0.91 K/uL (0.24-0.82); Neutrophils # (auto) 5.21 K/uL (1.4-6.5); Neutrophils % (auto) 57.4 %; Platelet Count 268 K/uL (130-400); RDW Coefficient of Variation 13.2 % (11.5-14.5); RDW Standard Deviation 47.2 fL (36.4-46.3); Red Blood Count 3.79 M/uL (3.93-5.22); White Blood Count 9.09 K/ul (4.8-10.8)
--- NOTE | 2022-05-26 11:16 | Electrocardiogram Report ---
Test Reason : Blood Pressure : / mmHG Vent. Rate : 072 BPM Atrial Rate : 072 BPM P-R Int : 154 ms QRS Dur : 080 ms QT Int : 380 ms P-R-T Axes : 042 -20 048 degrees QTc Int : 416 ms Normal sinus rhythm Low voltage QRS Poor R wave progression, consider anterior CT vs. lead placement vs. LVH Abnormal ECG When compared with ECG of 06-APR-2022 08:51, No significant change was found Confirmed by Marco Antonio Villalobos ([id number]) on 05/26/2022 11:16:31 AM Referred By: Confirmed By:Marco Antonio Villalobos
--- NOTE | 2022-05-26 11:35 | Emergency Department Note ---
History of Present Illness General Chief complaint: Referred by Doctor Stated complaint: Dr. Olvera sent for eval, swollen feet ankles Time Seen by Provider: 05/26/22 11:18 Source: patient, family ( who is at the bedside), RN notes reviewed and old records reviewed Mode of arrival: ambulatory Limitations: no limitations History of Present Illness This patient is a 76-year-old female who comes in after being sent over from her doctor's office having lower extremity edema for the last week and a half and hypoxemia. She was hospitalized with COVID here on April 08 and has been on oxygen off and on since then she has 2 L as needed that she uses but she has been using it more at home she was 82% at home she feels short of breath mostly dyspnea on exertion lower extremity edema is new when she is never had this before. No chest pain no fever she is had some cough with some yellowish phlegm. While she was in the hospital she did have a D-dimer that was elevated at 1100 and had a negative CTA of her chest on 04/07/2022. No history of cardiac disease or fluid retention. she is not diabetic. she is on no blood thinners. She was on Xarelto after leaving the hospital but is not presently. No history of blood clots Home Medications Medication Instructions Recorded Confirmed Type fluticasone fur. 100 mcg-umeclid 1 inh inhalation DAILY #3 Inhalers 11/13/21 05/26/22 Rx 62.5 mcg-vilant 25 mcg inhalat.powder (Trelegy Ellipta) atorvastatin 40 mg tablet 40 mg PO QAM #90 tabs 01/19/22 05/26/22 Rx omeprazole 40 mg capsule,delayed 40 mg PO QAM #90 caps 01/19/22 05/26/22 Rx release famotidine 20 mg tablet (Acid 20 mg PO PM #90 tabs 02/16/22 05/26/22 Rx Process Mechanic (famotidine)) fluoxetine 20 mg capsule 20 mg PO QAM #90 caps 02/16/22 05/26/22 Rx Oxygen Home #1 ea 04/09/22 05/20/22 Rx albuterol sulfate 90 mcg/actuation 2 puff inhalation Q4H PRN 04/09/22 05/26/22 Rx aerosol inhaler cough/wheeze/shortness of breath #8.5 grams clotrimazole 10 mg boone 10 mg mucous membrane TID PRN 04/19/22 05/26/22 Rx jose #90 tabs ipratropium 0.5 mg-albuterol 3 mg 3 ml inhalation Q6H PRN wheezing 05/05/22 Rx (2.5 mg base)/3 mL nebulization #180 mL soln nebulizer accessories #1 ea 05/05/22 05/20/22 Rx nebulizer and compressor #1 ea 05/05/22 05/20/22 Rx amlodipine 5 mg tablet (Norvasc) 5 mg PO QAM #90 tabs 05/17/22 05/26/22 Rx gabapentin 100 mg capsule 200 mg PO BID 90 days #360 caps 05/17/22 05/26/22 Rx pramipexole 0.25 mg tablet 0.25 mg PO .DAILY@1600 05/26/22 05/26/22 History pramipexole 0.25 mg tablet 0.5 mg PO .UD 05/26/22 05/26/22 History Allergies Allergy/AdvReac Type Severity Reaction Status Date / Time No Known Drug Allergies Allergy Unknown Unknown Verified 05/26/22 15:55 cat dander AdvReac Intermediate WATERY Verified 05/26/22 15:55 ITCHY EYES, NOSE Past Med/Surg History Medical History Acid reflux Anemia hx Ankle edema, bilateral Anxiety Anxiety and depression CAD (coronary artery disease) MILD NONOCCLUSIVE PER 2015 CARDIAC CATH > no cardio CAD (coronary artery disease) Cervical disc disease Chronic obstructive pulmonary disease D.O.E COPD exacerbation COVID-19 Dyspnea on exertion History of tobacco abuse Hoarseness of voice HTN (hypertension) Hypercholesterolemia Hyperlipidemia Hyperlipidemia Hypertension Long COVID LPRD (laryngopharyngeal reflux disease) Obesity (BMI 30.0-34.9) Obstructive sleep apnea cpap Osteoarthritis 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 Elisa Solomon voice Restless legs syndrome RLS (restless legs syndrome) Tinnitus Xerostomia Surgical History History of adenoidectomy History of cardiac cath (2014) History of cataract surgery bilat History of cervical spinal surgery ACDF History of cholecystectomy History of tonsillectomy History of tooth extraction History of total hip arthroplasty RIGHT S/P lumbar fusion S/P ORIF (open reduction internal fixation) fracture L wrist Status post wrist surgery R tendon repair Family History Brother KELLY (obstructive sleep apnea) Restless leg Paranoid Father , age 63 Kidney disease Diabetes Mother , age 89 Heart disease Hearing loss Hypertension Myocardial infarction Sister Restless leg Grandfather (Maternal) , age 43 Heart disease Myocardial infarction, Onset Age: 43 Grandmother (Paternal) Diabetes Stroke Grandfather (Paternal) Cancer Other No family history of adverse response to anesthesia No family history of bleeding disorder Denies family history of Ovarian cancer Prostate cancer Deep vein thrombosis Breast cancer Colorectal cancer Pulmonary embolism Social History Smoking Status: Never smoker Tobacco Type: Cigarettes Age Started Using Tobacco: 21; packs per day: 1; Years Smoked: 40; Second Hand Exposure: No; Hx Alcohol Use: No Hx Substance Use: Yes Preferred Language: Setswana Communication Ability: Effective Visual Impairment: No Limitations Hearing Ability: Normal 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 Head Required: No Beliefs That Will Affect Care: None marital status: Current Living Situation: Alone and Spouse Current Living Situation Comment: lives in [place] current occupational status: retired 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 How many Children do You have: 2 Feels Safe at Home: Yes Childhood Exposure to Second-Hand Smoke: Yes Diet Comment: regular caffeine: Yes during the past year weight has: remained stable Dental Care, Regularly: Yes Physical Activity Frequency: 1-2 Times per Week Seatbelt Use: always Sunscreen Use: Yes Assistive Devices: CPAP Review of Systems A total of 10 systems reviewed and were otherwise negative Physical Exam Vital Signs Vital Signs - 24 hr 05/26/22 10:46 05/26/22 11:07 05/26/22 11:07 Temperature 36.5 C Temperature Source Temporal Artery Scan Pulse Rate 79 Pulse Rate [Apical] Pulse Rate from SpO2 Sensor Pulse Rhythm Regular Pulse Strength Normal Respiratory Rate 22 Respiratory Effort / Characteristics Respiratory Depth Blood Pressure 181/81 H Blood Pressure [Left Arm] Blood Pressure Mean 114 Blood Pressure Mean [Left Arm] Blood Pressure Position Sitting Pulse Oximetry 98 Oxygen Delivery Method Nasal Cannula Room Air Room Air Oxygen Flow Rate 2 Sepsis Recent Fever Within 48 Hours No Sepsis New/Unexplained Change in Mental Status No Sepsis Action Taken by Nursing No Action Required 05/26/22 12:33 05/26/22 12:40 05/26/22 13:03 Temperature Temperature Source Pulse Rate 68 68 Pulse Rate [Apical] Pulse Rate from SpO2 Sensor 68 68 Pulse Rhythm Pulse Strength Respiratory Rate 21 21 Respiratory Effort / Characteristics Non-Labored Respiratory Depth Blood Pressure Blood Pressure [Left Arm] Blood Pressure Mean Blood Pressure Mean [Left Arm] Blood Pressure Position Pulse Oximetry 91 90 Oxygen Delivery Method Oxygen Flow Rate Sepsis Recent Fever Within 48 Hours Sepsis New/Unexplained Change in Mental Status Sepsis Action Taken by Nursing 05/26/22 13:00 05/26/22 13:00 05/26/22 13:30 Temperature Temperature Source Pulse Rate 70 Pulse Rate [Apical] Pulse Rate from SpO2 Sensor 70 Pulse Rhythm Pulse Strength Respiratory Rate 21 Respiratory Effort / Characteristics Respiratory Depth Blood Pressure 135/66 140/75 Blood Pressure [Left Arm] Blood Pressure Mean 89 96 Blood Pressure Mean [Left Arm] Blood Pressure Position Pulse Oximetry 92 Oxygen Delivery Method Oxygen Flow Rate Sepsis Recent Fever Within 48 Hours Sepsis New/Unexplained Change in Mental Status Sepsis Action Taken by Nursing 05/26/22 13:30 05/26/22 15:11 05/26/22 16:23 Temperature Temperature Source Pulse Rate 69 Pulse Rate [Apical] 71 75 Pulse Rate from SpO2 Sensor 70 Pulse Rhythm Pulse Strength Respiratory Rate 17 18 18 Respiratory Effort / Characteristics Non-Labored Respiratory Depth Normal Blood Pressure Blood Pressure [Left Arm] 121/87 157/77 H Blood Pressure Mean Blood Pressure Mean [Left Arm] 98 103 Blood Pressure Position Pulse Oximetry 91 91 91 Oxygen Delivery Method Room Air Room Air Oxygen Flow Rate Sepsis Recent Fever Within 48 Hours Sepsis New/Unexplained Change in Mental Status Sepsis Action Taken by Nursing General: Well developed well nourished not ill-appearing older female who appears in no acute distress, breathing comfortably on room air. Normal speech HEENT: Normal cephalic atraumatic. Pupils are equal round and reactive to light. Extraocular movements are intact. Oropharynx is pink with moist mucous membranes. No swelling of the mouth lips or tongue. Neck: Supple with a midline trachea. No meningeal signs or stiffness, no JVD or bruits. No Stridor. Chest: Clear to auscultation bilaterally. No wheezes or rhonchi. No increased work of breathing. Heart: Regular rate and rhythm without murmurs or gallops. Abdomen: Soft nontender, nondistended without rebound guarding or rigidity. Extremities: No cyanosis clubbing. She has trace to 1+ bilateral lower extremity edema. No calf tenderness or assymetry. No redness or warmth. Spine/Back. Non tender to palpation. No CVA tenderness Skin: Good turgor without rashes. Neurologic exam: Cranial nerves two through 12 are intact. Motor and sensation are intact and symmetrical throughout. Course Administered Medications Discontinued Medications Albuterol (Albut/Ipratrop 3mg/0.5mg Neb 3 Ml Vial) 3 ml NEB NOW STA; Protocol Stop: 05/26/22 15:08 Last Admin: 05/26/22 15:25 Dose: 3 ml Documented By: GORDON Ioversol (Optiray 320 500ml) 115 ml IV ONCE ONE Stop: 05/26/22 13:55 Last Admin: 05/26/22 13:55 Dose: 115 ml Documented By: CORETTA Methylprednisolone (Methylprednisolone 125 Mg/2 Ml Vial) 125 mg IV NOW STA Stop: 05/26/22 16:18 Last Admin: 05/26/22 16:24 Dose: 125 mg Documented By: LUZ Methylprednisolone (Methylprednisolone 125 Mg/2 Ml Vial) Confirm Administered Dose 125 mg .ROUTE .STK-MED ONE Stop: 05/26/22 16:19 Last Admin: 05/26/22 16:20 Dose: Not Given Documented By: LUZ Medical Decision Making Differential Diagnosis CHF, DVT, PE, acute coronary syndrome, arrhythmia, COVID complication, electrolyte or metabolic Medical Records Attestation: I reviewed the patient's medical records. Home Medications Current Medication List: was personally reviewed by me Laboratory Data Attestation: I reviewed the patient's lab results. Result diagrams: 05/26/22 11:05 05/26/22 11:05 Lab Results 05/26/22 05/26/22 05/26/22 Range/Units 11:05 11:05 11:05 WBC 9.09 (4.8-10.8) K/ul RBC 3.79 L (3.93-5.22) M/uL Hgb 12.4 (12.0-16.0) g/dl Hct 36.8 (34.1-44.9) % MCV 97.1 (80.0-100.0) fL MCH 32.7 (25.0-34.0) pg MCHC 33.7 (32.0-36.0) g/dL RDW Std Deviation 47.2 H (36.4-46.3) fL RDW Coeff of Soraida 13.2 (11.5-14.5) % Plt Count 268 (130-400) K/uL MPV 10.1 (9.4-12.3) fL Immature Gran % (Auto) 0.2 % Neut % (Auto) 57.4 % Lymph % (Auto) 27.4 % Traverse % (Auto) 10.0 % Eos % (Auto) 4.6 % Baso % (Auto) 0.4 % Neut # (Auto) 5.21 (1.4-6.5) K/uL Lymph # (Auto) 2.49 (1.2-3.4) K/uL Traverse # (Auto) 0.91 H (0.24-0.82) K/uL Eos # (Auto) 0.42 (0-0.50) K/uL Baso # (Auto) 0.04 (0-0.2) K/uL Immature Gran # (Auto) 0.02 (0.00-0.02) K/uL PT Cancelled INR Cancelled APTT Cancelled PTT Ratio Cancelled D-Dimer Sodium 139 (136-145) mmol/L Potassium 4.1 (3.5-5.1) mmol/L Chloride 106 (98-107) mmol/L Carbon Dioxide 26 (21-32) mmol/L Anion Gap 7 (3-11) BUN 18 (6-23) mg/dl Creatinine 0.90 (0.6-1.2) mg/dl Est Cr Clr Drug Dosing Not Reportable Est GFR ( Amer) 73.0 ml/min Est GFR (Non-Af Amer) 63.0 ml/min BUN/Creatinine Ratio 20.0 (10-20) Glucose 91 (70-99(Fasting)) mg/dl Calcium 9.1 (8.5-10.1) mg/dl Magnesium 1.9 (1.7-2.4) mg/dl Total Bilirubin 0.4 (0.2-1.0) mg/dl AST 15 (13-39) U/L ALT 11 (7-52) U/L Alkaline Phosphatase 90 (34-104) U/L Troponin I High Sens 5.6 (0-14) pg/ml B-Natriuretic Peptide (0-100) pg/ml Total Protein 7.2 (6.0-8.3) gm/dl Albumin 3.7 (3.4-5.0) gm/dl Globulin 3.5 (2.5-4.0) gm/dl Albumin/Globulin Ratio 1.1 (0.9-2) SARS-CoV-2, RNA, NAAT (NEGATIVE) 05/26/22 05/26/22 05/26/22 Range/Units 11:05 11:50 12:30 WBC (4.8-10.8) K/ul RBC (3.93-5.22) M/uL Hgb (12.0-16.0) g/dl Hct (34.1-44.9) % MCV (80.0-100.0) fL MCH (25.0-34.0) pg MCHC (32.0-36.0) g/dL RDW Std Deviation (36.4-46.3) fL RDW Coeff of Soraida (11.5-14.5) % Plt Count (130-400) K/uL MPV (9.4-12.3) fL Immature Gran % (Auto) % Neut % (Auto) % Lymph % (Auto) % Traverse % (Auto) % Eos % (Auto) % Baso % (Auto) % Neut # (Auto) (1.4-6.5) K/uL Lymph # (Auto) (1.2-3.4) K/uL Traverse # (Auto) (0.24-0.82) K/uL Eos # (Auto) (0-0.50) K/uL Baso # (Auto) (0-0.2) K/uL Immature Gran # (Auto) (0.00-0.02) K/uL PT 10.3 INR 1.0 APTT 23.7 PTT Ratio 0.9 D-Dimer Cancelled 1410 H* Sodium (136-145) mmol/L Potassium (3.5-5.1) mmol/L Chloride (98-107) mmol/L Carbon Dioxide (21-32) mmol/L Anion Gap (3-11) BUN (6-23) mg/dl Creatinine (0.6-1.2) mg/dl Est Cr Clr Drug Dosing Est GFR ( Amer) ml/min Est GFR (Non-Af Amer) ml/min BUN/Creatinine Ratio (10-20) Glucose (70-99(Fasting)) mg/dl Calcium (8.5-10.1) mg/dl Magnesium (1.7-2.4) mg/dl Total Bilirubin (0.2-1.0) mg/dl AST (13-39) U/L ALT (7-52) U/L Alkaline Phosphatase (34-104) U/L Troponin I High Sens (0-14) pg/ml B-Natriuretic Peptide 47 (0-100) pg/ml Total Protein (6.0-8.3) gm/dl Albumin (3.4-5.0) gm/dl Globulin (2.5-4.0) gm/dl Albumin/Globulin Ratio (0.9-2) SARS-CoV-2, RNA, NAAT (NEGATIVE) 05/26/22 Range/Units 13:05 WBC (4.8-10.8) K/ul RBC (3.93-5.22) M/uL Hgb (12.0-16.0) g/dl Hct (34.1-44.9) % MCV (80.0-100.0) fL MCH (25.0-34.0) pg MCHC (32.0-36.0) g/dL RDW Std Deviation (36.4-46.3) fL RDW Coeff of Soraida (11.5-14.5) % Plt Count (130-400) K/uL MPV (9.4-12.3) fL Immature Gran % (Auto) % Neut % (Auto) % Lymph % (Auto) % Traverse % (Auto) % Eos % (Auto) % Baso % (Auto) % Neut # (Auto) (1.4-6.5) K/uL Lymph # (Auto) (1.2-3.4) K/uL Traverse # (Auto) (0.24-0.82) K/uL Eos # (Auto) (0-0.50) K/uL Baso # (Auto) (0-0.2) K/uL Immature Gran # (Auto) (0.00-0.02) K/uL PT INR APTT PTT Ratio D-Dimer Sodium (136-145) mmol/L Potassium (3.5-5.1) mmol/L Chloride (98-107) mmol/L Carbon Dioxide (21-32) mmol/L Anion Gap (3-11) BUN (6-23) mg/dl Creatinine (0.6-1.2) mg/dl Est Cr Clr Drug Dosing Est GFR ( Amer) ml/min Est GFR (Non-Af Amer) ml/min BUN/Creatinine Ratio (10-20) Glucose (70-99(Fasting)) mg/dl Calcium (8.5-10.1) mg/dl Magnesium (1.7-2.4) mg/dl Total Bilirubin (0.2-1.0) mg/dl AST (13-39) U/L ALT (7-52) U/L Alkaline Phosphatase (34-104) U/L Troponin I High Sens (0-14) pg/ml B-Natriuretic Peptide (0-100) pg/ml Total Protein (6.0-8.3) gm/dl Albumin (3.4-5.0) gm/dl Globulin (2.5-4.0) gm/dl Albumin/Globulin Ratio (0.9-2) SARS-CoV-2, RNA, NAAT NEGATIVE (NEGATIVE) Imaging Data Attestation: I personally reviewed and interpreted this imaging study as follows: My Impression: Chest x-rayno acute infiltrate, failure, pneumothorax seen. Radiologist's Impression: Chest X-Ray 05/26/22 10:48 XR chest 1V portable CLINICAL HISTORY: Shortness of breath. COMPARISON STUDY: Chest CT April 07, 2022. Chest radiograph May 05, 2022. FINDINGS: Emphysema is noted. Cervical spine fusion is partially imaged. Lung volumes are normal. Lungs are clear. There is no pneumothorax or pleural effusion. Cardiac size is normal. Mediastinal contours are normal. There is no evidence for pulmonary edema. IMPRESSION: No acute cardiopulmonary findings. ACT 112: Negative or not required by law. Electronically signed by: Cresencio Meng M.D. 05/26/2022 11:52 AM Venous Doppler Study 05/26/22 11:25 BILATERAL LOWER EXTREMITY VENOUS DOPPLER HISTORY: Acute pain and swelling of the lower legs eval for dvt COMPARISON STUDY: None. FINDINGS: There is normal compressibility, flow, and augmentation within the bilateral lower extremity deep venous systems. IMPRESSION: No DVT within the right or left lower extremity. ACT 112: Negative or not required by law. Electronically signed by: Jose Francisco Dale M.D. 05/26/2022 2:19 PM Chest CTA 05/26/22 13:04 CT ANGIOGRAPHY OF THE CHEST, PULMONARY EMBOLUS PROTOCOL CLINICAL HISTORY: Shortness of breath. Evaluate for pulmonary embolus. COMPARISON STUDY: Chest CT April 07, 2022. Chest radiograph May 26, 2022. TECHNIQUE: Following IV administration of 115 mL of Optiray, helical axial images of the chest were obtained utilizing the pulmonary embolus protocol. Maximal intensity projections and sagittal and coronal reformats were viewed on an independent 3D workstation. IV contrast was administered without complication. Automated exposure control was utilized for the study. A dose lowering technique was utilized adhering to the principles of ALARA. CT DOSE: 473.05 mGy.cm FINDINGS: No pulmonary emboli are identified. There is no thoracic aortic dissection. Size of the heart is normal. There is no thoracic lymphadenopathy. No pneumothorax or pleural effusion is noted. Emphysema is present. There is no consolidation to suggest pneumonia. Subpleural opacities reflect atelectasis. A 5 mm right lower lobe nodule on image 84 of 256 is unchanged from earlier exams. This is benign given stability. A few additional smaller subpleural nodules are also unchanged. IMPRESSION: 1. No pulmonary emboli identified. 2. No acute intrathoracic findings. 3. Emphysema. ACT 112: Negative or not required by law. Electronically signed by: Cresencio Meng M.D. 05/26/2022 2:17 PM ECG Data Attestation: I personally reviewed and interpreted this ECG as follows: Indication: + SOB/dyspnea Rate (beats per minute): 72 Rhythm: + normal sinus ECG Intervals/blocks: + Normal QRS, + Normal QT and + Normal AK ECG [place]: + Normal ECG ST segments: + Normal ST segments ECG Findings: no PACs or no PVCs Comparison ECG Date: from (04/06/22) Change: no significant change MDM Narrative This patient comes in as described above. She was placed on a ekg monitor tech in room B 11. I initially saw her in triage as we were slightly backed up but she quickly went into her room after that. She has had increasing lower extremity edema which is new for her over the last week and a half or so. She has been hypoxemic at home and using oxygen more she did never use oxygen prior to having a COVID diagnosis about 6 weeks ago. She is afebrile here. EKG does not show any ischemic changes or ectopy she was placed on a ekg monitor tech. Chest x-ray was obtained I did ultrasound of her legs and multiple blood testing. She was reassessed frequently. Chest x-ray does not show congestive heart failure pneumonia or pneumothorax. She has some chronic emphysematous changes. EKG shows no ischemic changes or ectopy. Troponin is not elevated. She has no significant electrolyte or metabolic abnormalities. Her D-dimer is elevated and I did a CT of her chest there is no evidence of PE she has some emphysematous changes. Her legs were ultrasound shows no DVT. She does have mild edema. She looks fine at present and she does wear oxygen at home she does get short of breath and does desaturate into the mid to high 80s if she needs to exert herself or walk. I did consult Dr. Rodriguez to see the patient in the ER for possible admission. He has ordered albuterol neb and reassessed her. Dr. Rodriguez saw her and did order a neb and also obtained an echo in the ED and is likely going to discharge her with steroids. She feels better and she does feel up to going home. Continuous cardiac monitoring: Orders placed in EMR for continuous cardiac monitoring. [place] interpretation patient was noted to be in normal sinus rhythm with a rate of 70. Impression & Plan Bilateral edema of lower extremity, SOB (shortness of breath), Hypoxemia, Moderate COPD (chronic obstructive pulmonary disease) Discharge Plan Visit Data Chief Complaint: Referred by Doctor Stated Complaint: Dr. Olvera sent for eval, swollen feet ankles ED Provider: Alex Soriano Discharge Problem: Bilateral edema of lower extremity, SOB (shortness of breath), Hypoxemia, Moderate COPD (chronic obstructive pulmonary disease) Forms Stand Alone Forms: My [employer] Prescriptions Prescriptions: No Action atorvastatin 40 mg tablet 40 mg PO QAM Qty: 90 3RF omeprazole 40 mg capsule,delayed release(DR/EC) 40 mg PO QAM Qty: 90 2RF Rx Instructions: Take 30 mins before a meal with protein famotidine [Acid Process Mechanic (famotidine)] 20 mg tablet 20 mg PO PM Qty: 90 3RF fluoxetine 20 mg capsule 20 mg PO QAM Qty: 90 3RF gabapentin 100 mg capsule 200 mg PO BID 90 Days Qty: 360 1RF Trelegy Ellipta 100-62.5-25 mcg blister with device 1 inh inhalation DAILY Qty: 3 3RF ipratropium-albuterol 0.5 mg-3 mg(2.5 mg base)/3 mL solution for nebulization 3 ml inhalation Q6H PRN (Reason: wheezing) Qty: 180 3RF (DME) nebulizer accessories Kit See Rx Instructions .ROUTE .MEDSUPPLY Qty: 1 0RF Rx Instructions: As directed (DME) nebulizer and compressor Device See Rx Instructions .ROUTE .MEDSUPPLY Qty: 1 0RF Rx Instructions: As directed amlodipine [Norvasc] 5 mg tablet 5 mg PO QAM Qty: 90 3RF clotrimazole 10 mg boone 10 mg mucous membrane TID PRN (Reason: jose) Qty: 90 2RF pramipexole 0.25 mg tablet 0.25 mg PO .DAILY@1600 pramipexole 0.25 mg tablet 0.5 mg PO .UD Rx Instructions: TAKE TWO TABS 2 HOURS BEFORE BEDTIME (DME) Oxygen Home Liters Per Minute See Rx Instructions .ROUTE .MEDSUPPLY Qty: 1 0RF Rx Instructions: 2 liters NC O2 with activity/ambulation. albuterol sulfate 90 mcg/actuation HFA aerosol inhaler 2 puff inhalation Q4H PRN (Reason: cough/wheeze/shortness of breath) Qty: 8.5 5RF Rx Instructions: use with "spacer" device Referrals Referrals: Patricia Olvera, [Primary Care Provider] -
[2022-05-26 11:37] LABS: Anion Gap 7 (3-11); Blood Urea Nitrogen 18 mg/dl (6-23); Carbon Dioxide 26 mmol/L (21-32); Chloride 106 mmol/L (98-107); Glucose 91 mg/dl (70-99(Fasting)); Potassium 4.1 mmol/L (3.5-5.1); Sodium 139 mmol/L (136-145)
[2022-05-26 11:38] LABS: Alanine Aminotransferase 11 U/L (7-52); Albumin Globulin Ratio 1.1 (0.9-2); Albumin Level 3.7 gm/dl (3.4-5.0); Alkaline Phosphatase 90 U/L (34-104); Aspartate Aminotransferase 15 U/L (13-39); Bilirubin,Total 0.4 mg/dl (0.2-1.0); Calcium 9.1 mg/dl (8.5-10.1); Globulin 3.5 gm/dl (2.5-4.0); Magnesium 1.9 mg/dl (1.7-2.4); Total Protein 7.2 gm/dl (6.0-8.3)
[2022-05-26 11:42] LABS: Troponin I High Sensitivity 5.6 pg/ml (0-14)
--- NOTE | 2022-05-26 11:54 | XRay Report ---
XR chest 1V portable CLINICAL HISTORY: Shortness of breath. COMPARISON STUDY: Chest CT April 07, 2022. Chest radiograph May 05, 2022. FINDINGS: Emphysema is noted. Cervical spine fusion is partially imaged. Lung volumes are normal. Nina gs are clear. There is no pneumothorax or pleural effusion. Cardiac size is normal. Mediastinal conto urs are normal. There is no evidence for pulmonary edema. IMPRESSION: No acute cardiopulmonary findings. ACT 112: Negative or not required by law. Electronically signed by: Cresencio Meng M.D. 05/26/2022 11:52 AM
[2022-05-26 13:04] LABS: Partial Thromboplastin Ratio 0.9; Partial Thromboplastin Time 23.7 Seconds (21.0-31.0); Prothrombin Time 10.3 Seconds (9.0-12.0)
[2022-05-26 13:16] LABS: D Dimer 1410 ug/L FEU (0-500)
[2022-05-26] MEDS ORDERED: OPTIRAY 320 500ml IV ONE (13:54)
--- NOTE | 2022-05-26 14:18 | CT Scan Report ---
CT ANGIOGRAPHY OF THE CHEST, PULMONARY EMBOLUS PROTOCOL CLINICAL HISTORY: Shortness of breath. Evaluate for pulmonary embolus. COMPARISON STUDY: Chest CT April 07, 2022. Chest radiograph May 26, 2022. TECHNIQUE: Following IV administration of 115 mL of Optiray, helical axial images of the chest were o btained utilizing the pulmonary embolus protocol. Maximal intensity projections and sagittal and cor onal reformats were viewed on an independent 3D workstation. IV contrast was administered without co mplication. Automated exposure control was utilized for the study. A dose lowering technique was ut ilized adhering to the principles of ALARA. CT DOSE: 473.05 mGy.cm FINDINGS: No pulmonary emboli are identified. There is no thoracic aortic dissection. Size of the he art is normal. There is no thoracic lymphadenopathy. No pneumothorax or pleural effusion is noted. Em physema is present. There is no consolidation to suggest pneumonia. Subpleural opacities reflect atel ectasis. A 5 mm right lower lobe nodule on image 84 of 256 is unchanged from earlier exams. This is b enign given stability. A few additional smaller subpleural nodules are also unchanged. IMPRESSION: 1. No pulmonary emboli identified. 2. No acute intrathoracic findings. 3. Emphysema. ACT 112: Negative or not required by law. Electronically signed by: Cresencio Meng M.D. 05/26/2022 2:17 PM
--- NOTE | 2022-05-26 14:21 | Ultrasound Report ---
BILATERAL LOWER EXTREMITY VENOUS DOPPLER HISTORY: Acute pain and swelling of the lower legs eval for dvt COMPARISON STUDY: None. FINDINGS: There is normal compressibility, flow, and augmentation within the bilateral lower extremit y deep venous systems. IMPRESSION: No DVT within the right or left lower extremity. ACT 112: Negative or not required by law. Electronically signed by: Jose Francisco Dale M.D. 05/26/2022 2:19 PM
[2022-05-26] MEDS ORDERED: ALBUT/IPRATROP 3MG/0.5MG NEB 3 ML VIAL NEB STA (15:07)
[2022-05-26] MEDS ORDERED: methylPREDNISolone 125 MG/2 ML VIAL IV STA (16:17)
[2022-05-26] MEDS ORDERED: methylPREDNISolone 125 MG/2 ML VIAL ONE (16:18)
[2022-05-26] MEDS ORDERED: ONDANSETRON INJ 2 MG/ML 2 ML VIAL ONE (16:33)
[2022-05-26] MEDS ORDERED: FAMOTIDINE 20MG/5ML IV PUSH IV ONE (16:36)
[2022-05-26 16:40] LABS: Appearance Urine Clear (Clear); Bilirubin Urine Negative (Negative); Blood Urine Negative (Negative); Color Urine Yellow; Glucose Urine UA Negative (Negative); Ketones Urine Negative (Negative); Leukocyte Esterase Urine Negative (Negative); Nitrite Urine Negative (Negative); Protein Urine Negative (Negative); Specific Gravity Urine 1.036 (1.000-1.030); Urobilinogen Urine Negative (Negative)
[2022-05-26] MEDS ORDERED: FAMOTIDINE 20 MG in SYRINGE 3 ML IV ONE (16:45)
[2022-05-26] MEDS ORDERED: PANTOprazole 40 MG in SYRINGE 0 ML IV STA (16:47)
[2022-05-26] MEDS ORDERED: ALUMINUM/MAGNESIUM SUSP 30 ML UDC PO STA (16:47)
--- NOTE | 2022-05-26 16:49 | History & Physical Report ---
Date of Service May 26, 2022 Assessment & Plan (1) SOB (shortness of breath): Plan: Suspect long COVID on top of emphysema with poor DLCO Given some improvement with duoneb and very mild expiratory wheeze will plan on repeating steroid course for possible COPD exacerbation (2) COPD exacerbation: Plan: Possible diagnosis although unclear how much another course of steroids will really help I think it is worthwhile given her progressive worsening Solu-Medrol 125mg IV now then start prednisone 60mg PO tomorrow Duonebs QID Continue her usual [facility] or hospital formulary equivalent (3) Chest pain: Plan: with epigastric pain and vomiting occurred Solu-medrol given in the ER. IV pantoprazole 40mg and IV famotidine 20mg given. 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 Urine Protein/Cr ratio to r/o nephrotic syndrome LFTs unremakrable TTE Probably limited use of furosemide but amlodipine making this potential worse and will switch this for a diuretic to mainly manage her blood pressure. (5) Hypoxemia: Plan: Aim O2 sats > 88%, mainly to need oxygen on exertion. Consider 2 step tomorrow to see if this needs to be increased. (6) Long COVID: Plan: Consult pulmonary rehabilitation (7) Restless legs syndrome: Plan: Continue pramipexole Plan VTE Prophylaxis - low risk Diet - heart healthy Disposition - observation status to med/surg Admission and Anticipated Discharge Date Admission Date: May 26, 2022 History of Present Illness Chief Complaint: Shortness of breath on exertion, b/l ankle swelling Primary Care Provider: DO Kathe Amado presents to the ER with shortness of breath on exertion and b/l ankle swelling on advice of her primary care doctor. Andreas is on a background of being diagnosed with COVID-19 at the beginning of April. Since that time she reports a gradual worsening in her exercise tolerance, using more home oxygen (was discharged on 2LPM O2 on exertion and none at rest) and shortness of breath despite being started on Duonebs BID by her billet bed operator. She has not had a steroid course since her COVID diagnosis when she was treated with dexamethasone. She has also noticed a gradual increase in bilateral ankle swelling. Her PCP sent her to the ER presumably due to concern regarding the swelling and possible pulmonary emboli which was ruled on on CT for PE. Given significant worsening of hypoxia on exertion however she was referred to medicine for admission and ongoing management of this. On discussion with her billet bed operator they are considering pulmonary rehabilitation. Unclear if further steroid course would be helpful if not bronchospastic. No real further interventions for long COVID. After giving her duoneb in the emergency room she reported improvement in her shortness of breath while walking to the bathroom and back. She was therefore given an initial loading dose of Solu-medrol 125mg IV which caused vomiting followed by chest pain which was relieved with IV famotidine and eventually Maalox. Initially had planned to send her home from the emergency room given she already has oxygen at home however after her vomiting and chest pain she was advised and elected to stay overnight for observation. Allergies Allergy/AdvReac Type Severity Reaction Status Date / Time No Known Drug Allergies Allergy Unknown Unknown Verified 05/26/22 15:55 cat dander AdvReac Intermediate WATERY Verified 05/26/22 15:55 ITCHY EYES, NOSE Home Medications Medication Instructions Recorded Confirmed Type fluticasone fur. 100 mcg-umeclid 1 inh inhalation DAILY #3 Inhalers 11/13/21 05/26/22 Rx 62.5 mcg-vilant 25 mcg inhalat.powder (Trelegy Ellipta) atorvastatin 40 mg tablet 40 mg PO QAM #90 tabs 01/19/22 05/26/22 Rx omeprazole 40 mg capsule,delayed 40 mg PO QAM #90 caps 01/19/22 05/26/22 Rx release famotidine 20 mg tablet (Acid 20 mg PO PM #90 tabs 02/16/22 05/26/22 Rx M[employer] (famotidine)) fluoxetine 20 mg capsule 20 mg PO QAM #90 caps 02/16/22 05/26/22 Rx Oxygen Home #1 ea 04/09/22 05/20/22 Rx albuterol sulfate 90 mcg/actuation 2 puff inhalation Q4H PRN 04/09/22 05/26/22 Rx aerosol inhaler cough/wheeze/shortness of breath #8.5 grams clotrimazole 10 mg boone 10 mg mucous membrane TID PRN 04/19/22 05/26/22 Rx jose #90 tabs ipratropium 0.5 mg-albuterol 3 mg 3 ml inhalation Q6H PRN wheezing 05/05/22 05/26/22 Rx (2.5 mg base)/3 mL nebulization #180 mL soln nebulizer accessories #1 ea 05/05/22 05/20/22 Rx nebulizer and compressor #1 ea 05/05/22 05/20/22 Rx amlodipine 5 mg tablet (Norvasc) 5 mg PO QAM #90 tabs 05/17/22 05/26/22 Rx gabapentin 100 mg capsule 200 mg PO BID 90 days #360 caps 05/17/22 05/26/22 Rx pramipexole 0.25 mg tablet 0.25 mg PO .DAILY@1600 05/26/22 05/26/22 History pramipexole 0.25 mg tablet 0.5 mg PO .UD 05/26/22 05/26/22 History Past Med/Surg History Medical History Acid reflux Anemia hx Ankle edema, bilateral Anxiety Anxiety and depression CAD (coronary artery disease) MILD NONOCCLUSIVE PER 2015 CARDIAC CATH > no cardio CAD (coronary artery disease) Cervical disc disease Chronic obstructive pulmonary disease D.O.E COPD exacerbation COVID-19 Dyspnea on exertion History of tobacco abuse Hoarseness of voice HTN (hypertension) Hypercholesterolemia Hyperlipidemia Hyperlipidemia Hypertension Long COVID LPRD (laryngopharyngeal reflux disease) Obesity (BMI 30.0-34.9) Obstructive sleep apnea cpap Osteoarthritis 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 Elisa Solomon voice Restless legs syndrome RLS (restless legs syndrome) Tinnitus Xerostomia Surgical History History of adenoidectomy History of cardiac cath (2014) History of cataract surgery bilat History of cervical spinal surgery ACDF History of cholecystectomy History of tonsillectomy History of tooth extraction History of total hip arthroplasty RIGHT S/P lumbar fusion S/P ORIF (open reduction internal fixation) fracture L wrist Status post wrist surgery R tendon repair Family History Brother KELLY (obstructive sleep apnea) Restless leg Paranoid Father , age 63 Kidney disease Diabetes Mother , age 89 Heart disease Hearing loss Hypertension Myocardial infarction Sister Restless leg Grandfather (Maternal) , age 43 Heart disease Myocardial infarction, Onset Age: 43 Grandmother (Paternal) Diabetes Stroke Grandfather (Paternal) Cancer Other No family history of adverse response to anesthesia No family history of bleeding disorder Denies family history of Ovarian cancer Prostate cancer Deep vein thrombosis Breast cancer Colorectal cancer Pulmonary embolism Social History Smoking Status: Former smoker Tobacco Type: Cigarettes Age Started Using Tobacco: 21; packs per day: 1; Years Smoked: 40; Smoking End Date: 2009; Second Hand Exposure: No; Tobacco Cessation Education Requested by Patient: No Hx Alcohol Use: No Hx Substance Use: No Preferred Language: Wolof Communication Ability: Effective Visual Impairment: No Limitations Hearing Ability: Normal Boardmarker Required: No Beliefs That Will Affect Care: None marital status: Current Living Situation: Spouse Current Living Situation Comment: lives in [place] current occupational status: retired 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 How many Children do You have: 2 Other Information That Helps Us Care for You: No Feels Safe at Home: Yes Safety Concerns: Feels Safe At This Time Childhood Exposure to Second-Hand Smoke: Yes Diet Comment: regular caffeine: Yes during the past year weight has: remained stable Dental Care, Regularly: Yes Physical Activity Frequency: 1-2 Times per Week Seatbelt Use: always Sunscreen Use: Yes Assistive Devices: Oxygen - Continuous Assistive Devices Comment: Does not use oxygen at night, has CPAP, but doesnt use Review of Systems Review of Systems: All systems reviewed & are unremarkable except as noted in HPI & below Physical Exam Constitutional: WD/WN, vitals as above Eyes: PERRL, conjunctivae normal, anicteric sclerae ENMT: external ear and nose normal, oropharynx normal (No thrush) Neck: trachea midline, no thyromegaly Respiratory: normal respiratory effort; no respiratory distress (unless she walks) Auscultation: + wheezes (very mild expiraotry at bases); breath sounds present, no diminished lung sounds, no crackles, no rales and no rhonchi Cardiovascular: Rate/Rhythm: regular rate and regular rhythm Heart Sounds: no murmur Extremities: normal capillary refill and + pedal edema (1+ ankle p itting b/l equal); no calf tenderness Gastrointestinal (Abdomen): normal bowel sounds, soft, nontender, no hepatosplenomegaly Musculoskeletal: no cyanosis or clubbing, extremities motor strength 5/5 Skin: no rashes, warm and dry Neurologic: moves all extremities and awake; not confused Psychiatric: A+Ox3, euthymic affect Results & Data Results & Data ([facility]) Vital Signs (Past 12 Hours) Vital Signs Temp Pulse Pulse Resp BP BP Pulse Ox 05/26/22 16:23 75 18 157/77 H 91 05/26/22 15:11 71 18 121/87 91 05/26/22 13:30 69 17 91 05/26/22 13:30 140/75 05/26/22 13:00 70 21 92 05/26/22 13:00 135/66 05/26/22 12:40 68 21 90 05/26/22 12:33 68 21 91 05/26/22 11:07 05/26/22 11:07 05/26/22 10:46 36.5 C 79 22 181/81 H 98 O2 Del Method O2 Flow Rate 05/26/22 16:23 Room Air 05/26/22 15:11 Room Air 05/26/22 13:30 05/26/22 13:30 05/26/22 13:00 05/26/22 13:00 05/26/22 12:40 05/26/22 12:33 05/26/22 11:07 Room Air 05/26/22 11:07 Room Air 05/26/22 10:46 Nasal Cannula 2 Laboratory Results Abnormal lab results 05/26/22 05/26/22 05/26/22 Range/Units 11:05 12:30 16:05 RBC 3.79 L (3.93-5.22) M/uL RDW Std Deviation 47.2 H (36.4-46.3) fL Schleicher # (Auto) 0.91 H (0.24-0.82) K/uL D-Dimer 1410 H* (0-500) ug/L FEU Ur Specific [place] 1.036 H (1.000-1.030) Diagnostic Findings XR chest 1V portable CLINICAL HISTORY: Shortness of breath. COMPARISON STUDY: Chest CT April 07, 2022. Chest radiograph May 05, 2022. FINDINGS: Emphysema is noted. Cervical spine fusion is partially imaged. Lung volumes are normal. Lungs are clear. There is no pneumothorax or pleural effusion. Cardiac size is normal. Mediastinal contours are normal. There is no evidence for pulmonary edema. IMPRESSION: No acute cardiopulmonary findings. CT ANGIOGRAPHY OF THE CHEST, PULMONARY EMBOLUS PROTOCOL CLINICAL HISTORY: Shortness of breath. Evaluate for pulmonary embolus. COMPARISON STUDY: Chest CT April 07, 2022. Chest radiograph May 26, 2022. TECHNIQUE: Following IV administration of 115 mL of Optiray, helical axial images of the chest were obtained utilizing the pulmonary embolus protocol. Maximal intensity projections and sagittal and coronal reformats were viewed on an independent 3D workstation. IV contrast was administered without complication. Automated exposure control was utilized for the study. A dose lowering technique was utilized adhering to the principles of ALARA. CT DOSE: 473.05 mGy.cm FINDINGS: No pulmonary emboli are identified. There is no thoracic aortic dissection. Size of the heart is normal. There is no thoracic lymphadenopathy. No pneumothorax or pleural effusion is noted. Emphysema is present. There is no consolidation to suggest pneumonia. Subpleural opacities reflect atelectasis. A 5 mm right lower lobe nodule on image 84 of 256 is unchanged from earlier exams. This is benign given stability. A few additional smaller subpleural nodules are also unchanged. IMPRESSION: 1. No pulmonary emboli identified. 2. No acute intrathoracic findings. 3. Emphysema. BILATERAL LOWER EXTREMITY VENOUS DOPPLER HISTORY: Acute pain and swelling of the lower legs eval for dvt COMPARISON STUDY: None. FINDINGS: There is normal compressibility, flow, and augmentation within the bilateral lower extremity deep venous systems. IMPRESSION: No DVT within the right or left lower extremity. Medications Administered ER Mediations Given: None ECG Indication: chest pain Rate (beats per minute): 72 Rhythm: normal sinus Findings: + other (poor R wave progression); no acute ischemic change Comparison ECG Date: from (April 06, 2022) Change: no significant change Code Status & VTE Plan Code Status Full VTE Prophylaxis Plan VTE Prophylaxis will be ordered: Yes PG Care Time/CCT Total # of Minutes Spent Total Time Spent: 70 Total Time Spent with Patient: Total time spent is greater than 50% in coordination of care (as documented) at patient's floor/unit and/or counseling patient: Coding Level of Care Code INT OBSERVATION CARE 70M LVL 3 Diagnoses SOB (shortness of breath) R06.02 COPD exacerbation J44.1 Chest pain R07.9 Bilateral edema of lower extremity R60.0 Hypoxemia R09.02 Long COVID U09.9 Restless legs syndrome G25.81
[2022-05-26 16:52] LABS: Carboxyhemoglobin < 0.3 % THgb; Methemoglobin < 0.7 % (0.0-1.5)
--- NOTE | 2022-05-26 16:57 | XCELERA ---
[id number]
[2022-05-26 17:11] LABS: Total Protein Urine Random < 4.0 mg/dl (0-11.9)
[2022-05-26] MEDS ORDERED: ACETAMINOPHEN 325 MG TAB PO PRN (18:38)
[2022-05-26] MEDS ORDERED: ALBUT/IPRATROP 3MG/0.5MG NEB 3 ML VIAL NEB SCH (19:00)
[2022-05-26] MEDS ORDERED: ALUMINUM/MAGNESIUM SUSP 30 ML UDC PO PRN (21:15)
[2022-05-26] MEDS: PRAMIPEXOLE DIHYDROCHLO 0.5 MG TAB PO SCH (21:57)
[2022-05-26] MEDS: GABAPENTIN 100 MG CAP PO SCH (21:57)
[2022-05-26] MEDS: FAMOTIDINE 20 MG TAB PO SCH (21:58)
[2022-05-26] MEDS ORDERED: ONDANSETRON INJ 2 MG/ML 2 ML VIAL IV PRN (22:58)
[2022-05-27] MEDS: ALBUT/IPRATROP 3MG/0.5MG NEB 3 ML VIAL NEB SCH ×2 (08:03→18:21)
[2022-05-27] MEDS: GABAPENTIN 100 MG CAP PO SCH ×2 (08:27→20:15)
[2022-05-27] MEDS: PANTOprazole 40 MG TAB PO SCH (08:27)
[2022-05-27] MEDS: UMECLIDINIUM/VILANTEROL 62.5/25MCG 7 PUFFS/INHALER INH SCH (08:27)
[2022-05-27] MEDS: ATORVASTATIN 40 MG TAB PO SCH (08:27)
[2022-05-27] MEDS: FLUoxetine HCL 20 MG CAP PO SCH (08:27)
[2022-05-27] MEDS: FLUTICASONE FUROATE 100MCG 14 PUFFS/INHALER INH SCH (08:27)
--- NOTE | 2022-05-27 08:43 | Hospitalist Progress Note ---
Date of Service May 27, 2022 Assessment & Plan (1) SOB (shortness of breath): Plan: Suspect long COVID on top of emphysema with poor DLCO Reported IMPROVING IN BREATHING 05/27 WBC elevation likely 2nd to steroids. afebrile procal negative Ddimer elevated--> CTA obtained - NEGATIVE for PE 20mg lasix (BNP wnl however, but suspect some retention from steroids), ?need for prn dosing/weight based? 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, suspect aspect underlying reactive airway disease from that as well, prior smoking hx but quit >10 yrs ago) * Agreed Prednisone, but short course x 5 days * ==>60mg daily x 4 more days per pulmonary Supplemental O2 as tolerated -- titrate to maintain sats Pulmonary rehab at discharge outpatient (2) COPD exacerbation: Plan: Possible diagnosis although unclear how much another course of steroids will really help I think it is worthwhile given her progressive worsening Solu-Medrol 125mg IV x1 in ER, started prednisone 60mg daily 05/27 and continue 5 day course Duonebs QID [facility] -- had not been using for couple weeks prior in past, need to verify using at home -- she admits she is taking this Added mucinex BID as prior was taking at home but stopped once placed on nebulizers Prednisone 60mg for total 5 days per pulm, continue usual inhalers and outpt f/u for Nucala/Fasenra as above (3) Chest pain: Plan: with epigastric pain and vomiting occurred Solu-medrol given in the ER. IV pantoprazole 40mg and IV famotidine 20mg given. Ondansetron for nausea Initial plan was actually to discharge patient from the ER until this occurred She states this occurred DIRECTLY after 2 vials of steroids given in ER, no recurrence On famotidine 20mg at home, omeprazole 40mg continue famotidine, protonix while inpatient monitor for any sx, no bleeding, no recurrence of CP. 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 Urine Protein/Cr ratio to r/o nephrotic syndrome LFTs unremarkable TTE -- no change compared to study 2014 -- EF 60-65%, grade I diastolic dysfunction. Moderate concentric LVH. RV normal in size/function. No significant valvular disease on limited study Probably limited use of furosemide but amlodipine making this potential worse and will switch this for a diuretic to mainly manage her blood pressure. reported improved with lasix 20mg --> will continue for now 20mg daily especially while on steroids consider prn dosing edema/weight gain (5) Hypoxemia: Plan: Aim O2 sats > 88%, mainly to need oxygen on exertion. Consider 2 step tomorrow to see if this needs to be increased. (6) Long COVID: Plan: Consult pulmonary rehabilitation -- needs arranged out. will reach out to CM in AM to assist. Also possible component of eosinophilic asthma as above, outpt f/u pulm (7) Restless legs syndrome: Plan: Continue pramipexole Plan VTE Prophylaxis - low risk per calculator, has been ambulating given elevated Ddimer though (CT chest negative for PE), and recent COVID, will place on Lovenox BID while inpatient. Had been set on NOAC x 30 days after d/c from initial hospitalization from covid Repeat 2 step in AM, if continued stable/improved will plan for dc Admission and Anticipated Discharge Date Admission Date: May 26, 2022 Subjective Patient evaluated this morning. Stated feeling better as far as breathing. Had some light yellow sputum, not coughing up much. No further chest pain or reflux symptoms reported. She states this was in the ER and occurred directly after 2 vials of steroids. Prior taking Mucinex but hasn't since being on the nebulizers. Using 2L w/ ambulation at home over past couple weeks, prior was only on 2L at rest. Completed prior steroid taper. Agreeable to pulm consult, consideration for abx for COPD exacerbation, monitoring overnight and if improvement will repeat 2step and hope for d/c tomorrow. Review of Systems Review of Systems: All systems reviewed & are unremarkable except as noted in HPI & below Physical Exam Physical Exam: General: WD/WN female sitting up in bed, NAD HEENT; head normocephalic, atraumatic, mmm, trachea midline without deviation Resp: bibasilar crackles, not tachypneic, no wheezing/rales, on 3L NC SpO2 95% CV: RRR, no m/r/g, no pitting edema/calf tenderness (although reported pedal edema prior) GI: +BS,soft, nontender no segura MSK/Neuro: no focal deficit, follows commands, seen ambulating halls with aide without much difficulty earlier this morning Psych: AOx3, pleasant and cooperative Skin: warm, dry Results & Data Results & Data ([facility]) Vital Signs (Past 12 Hours) Vital Signs Temp Pulse Resp BP Pulse Ox O2 Del Method O2 Flow Rate 05/27/22 08:03 78 15 94 Nasal Cannula 2 05/27/22 07:20 Nasal Cannula 3 05/27/22 07:49 36.7 C 88 18 119/81 94 Nasal Cannula 3 05/26/22 22:17 36.5 C 72 20 109/67 94 Nasal Cannula 4 Laboratory Results 05/27/22 05/27/22 05/26/22 Range/Units 12:37 12:37 11:05 WBC 11.13 H (4.8-10.8) K/ul RBC 3.58 L (3.93-5.22) M/uL Hgb 11.7 L (12.0-16.0) g/dl Hct 34.1 (34.1-44.9) % MCV 95.3 (80.0-100.0) fL MCH 32.7 (25.0-34.0) pg MCHC 34.3 (32.0-36.0) g/dL RDW Std Deviation 45.7 (36.4-46.3) fL RDW Coeff of Soraida 13.0 (11.5-14.5) % Plt Count 277 (130-400) K/uL MPV 9.6 (9.4-12.3) fL Sodium 138 (136-145) mmol/L Potassium 4.0 (3.5-5.1) mmol/L Chloride 106 (98-107) mmol/L Carbon Dioxide 23 (21-32) mmol/L Anion Gap 9 (3-11) BUN 22 (6-23) mg/dl Creatinine 1.01 (0.6-1.2) mg/dl Est Cr Clr Drug Dosing 57.6 ml/min Est GFR ( Amer) 63.5 ml/min Est GFR (Non-Af Amer) 54.8 ml/min BUN/Creatinine Ratio 21.8 H (10-20) Glucose 170 H (70-99(Fasting)) mg/dl Calcium 9.3 (8.5-10.1) mg/dl Magnesium 2.0 (1.7-2.4) mg/dl Procalcitonin < 0.05 (0-0.5) ng/ml PG Care Time/CCT Total # of Minutes Spent Total Time Spent with Patient: Total time spent is greater than 50% in coordination of care (as documented) at patient's floor/unit and/or counseling patient: Coding Level of Care Code 11832 Subseq Obs Care Lvl 3 Diagnoses SOB (shortness of breath) R06.02 COPD exacerbation J44.1 Chest pain R07.9 Bilateral edema of lower extremity R60.0 Hypoxemia R09.02 Long COVID U09.9 Restless legs syndrome G25.81
[2022-05-27] MEDS ORDERED: amLODIPine BESYLATE 5 MG TAB PO SCH (09:00)
[2022-05-27] MEDS ORDERED: FUROSEMIDE 20 MG TAB PO SCH (09:00)
[2022-05-27] MEDS ORDERED: predniSONE 20 MG TAB PO SCH (09:00)
--- NOTE | 2022-05-27 09:28 | Electrocardiogram Report ---
Test Reason : Blood Pressure : / mmHG Vent. Rate : 088 BPM Atrial Rate : 088 BPM P-R Int : 152 ms QRS Dur : 078 ms QT Int : 358 ms P-R-T Axes : 070 -06 053 degrees QTc Int : 433 ms Normal sinus rhythm Poor R wave progression, consider anterior GA vs. lead placement vs. LVH Abnormal ECG When compared with ECG of 26-MAY-2022 10:58, No significant change was found Confirmed by Marco Antonio Villalobos ([id number]) on 05/27/2022 9:28:01 AM Referred By: REFERRED SELF Confirmed By:Marco Antonio Villalobos
[2022-05-27 12:54] LABS: Hematocrit (blood only) 34.1 % (34.1-44.9); Hemoglobin 11.7 g/dl (12.0-16.0); Mean Corpuscular Hemoglobin 32.7 pg (25.0-34.0); Mean Corpuscular Hgb Conc 34.3 g/dL (32.0-36.0); Mean Corpuscular Volume 95.3 fL (80.0-100.0); Mean Platelet Volume 9.6 fL (9.4-12.3); Platelet Count 277 K/uL (130-400); RDW Standard Deviation 45.7 fL (36.4-46.3); Red Blood Count 3.58 M/uL (3.93-5.22); White Blood Count 11.13 K/ul (4.8-10.8)
[2022-05-27 13:15] LABS: BUN Creatinine Ratio 21.8 (10-20); Calcium 9.3 mg/dl (8.5-10.1); Creatinine Clr Calc Pharmacy 57.6 ml/min; Est GFR (African American) 63.5 ml/min; Est GFR (Non-African American) 54.8 ml/min
[2022-05-27] MEDS: ENOXAPARIN INJ 40 MG/0.4 ML SYR SQ SCH ×2 (13:41→20:14)
[2022-05-27] MEDS ORDERED: PRAMIPEXOLE DIHYDROCHLO 0.25 MG TAB PO SCH (16:00)
--- NOTE | 2022-05-27 16:21 | Pulmonary Consultation ---
Date of Consultation May 27, 2022 Assessment & Plan (1) Diastolic CHF, acute on chronic: We will increase Lasix dose to 40 mg p.o. daily and give a dose now. Grade 1 diastolic dysfunction noted on echo. (2) SOB (shortness of breath): Chronic secondary to obesity, deconditioning and pulmonary emphysema. Recommend maintaining euvolemic status with diuresis. No clear signs of COPD exacerbation at this time. I would not give her more than a 5-day course of prednisone. I decreased her prednisone from 60 mg to 40 mg. 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 Will need outpatient pulmonary rehab. Completed pulmonary rehab about 3 years ago. Will need updated PFTs. Last PFT completed 2019 which revealed a normal FEV1. DLCO 41%. (3) Hypoxemia: Secondary to severe emphysema. Maintain sats around 88 to 92%. Will touch base with case management regarding home oxygen concentrator. 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 Continue current inhalers. History of Present Illness Reason for Consultation: Hypoxia Attending Physician: Kraig Solis MD History of Present Illness 76-year-old female well-known to me with a history of severe pulmonary emphysema, KELLY and obesity presenting to the hospital for increasing shortness of breath. Pulmonary is consulted for assistance with management. She was started on prednisone and antibiotics. She notes some increasing shortness of breath over the last few days. She is currently requiring 3 L oxygen to maintain saturations of 95%. Chest CTA completed yesterday did not reveal any acute findings. Labs generally unremarkable. She has mild leukocytosis likely related to demargination from steroids. She has had elevated eosinophil counts in the past upwards of 740. Patient notes she is also had increasing swelling in her legs. Echo completed yesterday revealed an LVEF of 60 to 65%. Grade 1 diastolic dysfunction. Allergies Allergy/AdvReac Type Severity Reaction Status Date / Time No Known Drug Allergies Allergy Unknown Unknown Verified 05/26/22 15:55 cat dander AdvReac Intermediate WATERY Verified 05/26/22 15:55 ITCHY EYES, NOSE Home Medications Medication Instructions Recorded Confirmed Type fluticasone fur. 100 mcg-umeclid 1 inh inhalation DAILY #3 Inhalers 11/13/21 05/26/22 Rx 62.5 mcg-vilant 25 mcg inhalat.powder (Trelegy Ellipta) atorvastatin 40 mg tablet 40 mg PO QAM #90 tabs 01/19/22 05/26/22 Rx omeprazole 40 mg capsule,delayed 40 mg PO QAM #90 caps 01/19/22 05/26/22 Rx release famotidine 20 mg tablet (Acid 20 mg PO PM #90 tabs 02/16/22 05/26/22 Rx Measurement Department Chief Clerk (famotidine)) fluoxetine 20 mg capsule 20 mg PO QAM #90 caps 02/16/22 05/26/22 Rx Oxygen Home #1 ea 04/09/22 05/20/22 Rx albuterol sulfate 90 mcg/actuation 2 puff inhalation Q4H PRN 04/09/22 05/26/22 Rx aerosol inhaler cough/wheeze/shortness of breath #8.5 grams clotrimazole 10 mg boone 10 mg mucous membrane TID PRN 04/19/22 05/26/22 Rx jose #90 tabs ipratropium 0.5 mg-albuterol 3 mg 3 ml inhalation Q6H PRN wheezing 05/05/22 05/26/22 Rx (2.5 mg base)/3 mL nebulization #180 mL soln nebulizer accessories #1 ea 05/05/22 05/20/22 Rx nebulizer and compressor #1 ea 05/05/22 05/20/22 Rx amlodipine 5 mg tablet (Norvasc) 5 mg PO QAM #90 tabs 05/17/22 05/26/22 Rx gabapentin 100 mg capsule 200 mg PO BID 90 days #360 caps 05/17/22 05/26/22 Rx pramipexole 0.25 mg tablet 0.25 mg PO .DAILY@1600 05/26/22 05/26/22 History pramipexole 0.25 mg tablet 0.5 mg PO .UD 05/26/22 05/26/22 History Patient History Medical History (Updated 05/27/22 @ 17:44 by Ishmael Pérez MD) Acid reflux Anemia hx Ankle edema, bilateral Anxiety Anxiety and depression CAD (coronary artery disease) MILD NONOCCLUSIVE PER 2015 CARDIAC CATH > no cardio CAD (coronary artery disease) Cervical disc disease Chronic obstructive pulmonary disease D.O.E COPD exacerbation COVID-19 Diastolic CHF, acute on chronic Dyspnea on exertion History of tobacco abuse Hoarseness of voice HTN (hypertension) Hypercholesterolemia Hyperlipidemia Hyperlipidemia Hypertension Long COVID LPRD (laryngopharyngeal reflux disease) Obesity (BMI 30.0-34.9) Obstructive sleep apnea cpap Osteoarthritis 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 Elisa Soloomn voice Restless legs syndrome RLS (restless legs syndrome) Tinnitus Xerostomia Surgical History History of adenoidectomy History of cardiac cath (2014) History of cataract surgery bilat History of cervical spinal surgery ACDF History of cholecystectomy History of tonsillectomy History of tooth extraction History of total hip arthroplasty RIGHT S/P lumbar fusion S/P ORIF (open reduction internal fixation) fracture L wrist Status post wrist surgery R tendon repair Family History Brother KELLY (obstructive sleep apnea) Restless leg Paranoid Father , age 63 Kidney disease Diabetes Mother , age 89 Heart disease Hearing loss Hypertension Myocardial infarction Sister Restless leg Grandfather (Maternal) , age 43 Heart disease Myocardial infarction, Onset Age: 43 Grandmother (Paternal) Diabetes Stroke Grandfather (Paternal) Cancer Other No family history of adverse response to anesthesia No family history of bleeding disorder Denies family history of Ovarian cancer Prostate cancer Deep vein thrombosis Breast cancer Colorectal cancer Pulmonary embolism Social History Smoking Status: Former smoker Tobacco Type: Cigarettes Age Started Using Tobacco: 21; packs per day: 1; Years Smoked: 40; Smoking End Date: 2009; Second Hand Exposure: No; Tobacco Cessation Education Requested by Patient: No Hx Alcohol Use: No Hx Substance Use: No Preferred Language: Prydeinig Communication Ability: Effective Visual Impairment: No Limitations Hearing Ability: Normal Fire Technology Instructor Required: No Beliefs That Will Affect Care: None marital status: Current Living Situation: Spouse Current Living Situation Comment: lives [place] current occupational status: retired 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 How many Children do You have: 2 Other Information That Helps Us Care for You: No Feels Safe at Home: Yes Safety Concerns: Feels Safe At This Time Childhood Exposure to Second-Hand Smoke: Yes Diet Comment: regular caffeine: Yes during the past year weight has: remained stable Dental Care, Regularly: Yes Physical Activity Frequency: 1-2 Times per Week Seatbelt Use: always Sunscreen Use: Yes Assistive Devices: Oxygen - Continuous Assistive Devices Comment: Does not use oxygen at night, has CPAP, but doesnt use Review of Systems Review of Systems: All systems reviewed & are unremarkable except as noted in HPI & below Physical Exam Constitutional: WD/WN, vitals as above well nourished Eyes: PERRL, conjunctivae normal, anicteric sclerae ENMT: external ear and nose normal, oropharynx normal Neck: normal visual inspection Respiratory: Prolonged phase of exhalation. No wheezes. Cardiovascular: Normal rhythm and rate. No murmurs. 1+ edema. Musculoskeletal: no cyanosis or clubbing, extremities motor strength 5/5 Skin: no rashes, warm and dry Neurologic: CN's II-XI intact bilaterally Psychiatric: A+Ox3, euthymic affect Eye Contact: good eye contact Lymphatic: no cervical or axillary lymphadenopathy Results & Data Results & Data ([facility]) Vital Signs (Past 12 Hours) Vital Signs Temp Pulse Resp BP Pulse Ox O2 Del Method O2 Flow Rate 05/27/22 15:01 36.7 C 92 H 16 138/77 95 Nasal Cannula 3 05/27/22 08:03 78 15 94 Nasal Cannula 2 05/27/22 07:20 Nasal Cannula 3 05/27/22 07:49 36.7 C 88 18 119/81 94 Nasal Cannula 3 PG Care Time/CCT Total # of Minutes Spent Total Time Spent with Patient: Total time spent is greater than 50% in coordination of care (as documented) at patient's floor/unit and/or counseling patient: Coding Level of Care Code 71866 Initial Inpt Care Lvl 3 Diagnoses Diastolic CHF, acute on chronic I50.33 SOB (shortness of breath) R06.02 Hypoxemia R09.02 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
[2022-05-27] MEDS ORDERED: FUROSEMIDE 40 MG TAB PO ONE (17:41)
[2022-05-27] MEDS: guaiFENesin 600 MG TABCR PO SCH (20:15)
[2022-05-27] MEDS: PRAMIPEXOLE DIHYDROCHLO 0.5 MG TAB PO SCH (20:15)
[2022-05-27] MEDS: FAMOTIDINE 20 MG TAB PO SCH (20:15)
[2022-05-28] MEDS: ALBUT/IPRATROP 3MG/0.5MG NEB 3 ML VIAL NEB SCH (07:05)
--- NOTE | 2022-05-28 07:51 | Discharge Summary ---
Date of Service May 28, 2022 Admission HPI Per Admitting Provider Kathe Garcia presents to the ER with shortness of breath on exertion and b/l ankle swelling on advice of her primary care doctor. Andreas is on a background of being diagnosed with COVID-19 at the beginning of April. Since that time she reports a gradual worsening in her exercise tolerance, using more home oxygen (was discharged on 2LPM O2 on exertion and none at rest) and shortness of breath despite being started on Duonebs BID by her med surg rn. She has not had a steroid course since her COVID diagnosis when she was treated with dexamethasone. She has also noticed a gradual increase in bilateral ankle sw elling. Her PCP sent her to the ER presumably due to concern regarding the swelling and possible pulmonary emboli which was ruled on on CT for PE. Given significant worsening of hypoxia on exertion however she was referred to medicine for admission and ongoing management of this. On discussion with her med surg rn they are considering pulmonary rehabilitation. Unclear if further steroid course would be helpful if not bronchospastic. No real further interventions for long COVID. After giving her duoneb in the emergency room she reported improvement in her shortness of breath while walking to the bathroom and back. She was therefore given an initial loading dose of Solu-medrol 125mg IV which caused vomiting followed by chest pain which was relieved with IV famotidine and eventually Maalox. Initially had planned to send her home from the emergency room given she already has oxygen at home however after her vomiting and chest pain she was advised and elected to stay overnight for observation. Admission Exam Per Admitting Provider Constitutional: WD/WN, vitals as above Eyes: PERRL, conjunctivae normal, anicteric sclerae ENMT: external ear and nose normal, oropharynx normal (No thrush) Neck: trachea midline, no thyromegaly Respiratory: normal respiratory effort; no respiratory distress (unless she walks) Auscultation: + wheezes (very mild expiraotry at bases); breath sounds present, no diminished lung sounds, no crackles, no rales and no rhonchi Cardiovascular: Rate/Rhythm: regular rate and regular rhythm Heart Sounds: no murmur Extremities: normal capillary refill and + pedal edema (1+ ankle pitting b/l equal); no calf tenderness Gastrointestinal (Abdomen): normal bowel sounds, soft, nontender, no hepatosplenomegaly Musculoskeletal: no cyanosis or clubbing, extremities motor strength 5/5 Skin: no rashes, warm and dry Neurologic: moves all extremities and awake; not confused Psychiatric: A+Ox3, euthymic affect Principal Diagnosis COPD Exacerbation, Acute on Chronic Diastolic CHF Discharge Exam General: WD/WN female walking back from bathroom, NAD HEENT; head normocephalic, atraumatic, mmm, trachea midline without deviation Resp: bibasilar crackles, not tachypneic, no wheezing/rales, ROOM AIR AT REST CV: RRR, no m/r/g, trace pedal edema, NO calf tenderness , pulses palpable GI: +BS,soft, nontender no segura MSK/Neuro: no focal deficit, follows commands, observed ambulating without issue Psych: AOx3, pleasant and cooperative Skin: warm, dry Discharge Data Allergies Allergy/AdvReac Type Severity Reaction Status Date / Time No Known Drug Allergies Allergy Unknown Unknown Verified 05/26/22 15:55 cat dander AdvReac Intermediate WATERY Verified 05/26/22 15:55 ITCHY EYES, NOSE Consultations 05/26/22 22:56 Consult Pulmonary Rehabilitation Routine 05/27/22 08:35 Consult Pulmonology Routine Ordered Studies Chest X-Ray 05/26/22 10:48 XR chest 1V portable CLINICAL HISTORY: Shortness of breath. COMPARISON STUDY: Chest CT April 07, 2022. Chest radiograph May 05 022. FINDINGS: Emphysema is noted. Cervical spine fusion is partially imaged. Lung volumes are normal. Lungs are clear. There is no pneumothorax or pleural effusion. Cardiac size is normal. Mediastinal contours are normal. There is no evidence for pulmonary edema. IMPRESSION: No acute cardiopulmonary findings. ACT 112: Negative or not required by law. Electronically signed by: Cresencio Meng M.D. 05/26/2022 11:52 AM Venous Doppler Study 05/26/22 11:25 BILATERAL LOWER EXTREMITY VENOUS DOPPLER HISTORY: Acute pain and swelling of the lower legs eval for dvt COMPARISON STUDY: None. FINDINGS: There is normal compressibility, flow, and augmentation within the bilateral lower extremity deep venous systems. IMPRESSION: No DVT within the right or left lower extremity. ACT 112: Negative or not required by law. Electronically signed by: Jose Francisco Dale M.D. 05/26/2022 2:19 PM Chest CTA 05/26/22 13:04 CT ANGIOGRAPHY OF THE CHEST, PULMONARY EMBOLUS PROTOCOL CLINICAL HISTORY: Shortness of breath. Evaluate for pulmonary embolus. COMPARISON STUDY: Chest CT April 07, 2022. Chest radiograph May 26, 2022. TECHNIQUE: Following IV administration of 115 mL of Optiray, helical axial images of the chest were obtained utilizing the pulmonary embolus protocol. Maximal intensity projections and sagittal and coronal reformats were viewed on an independent 3D workstation. IV contrast was administered without complication. Automated exposure control was utilized for the study. A dose lowering technique was utilized adhering to the principles of ALARA. CT DOSE: 473.05 mGy.cm FINDINGS: No pulmonary emboli are identified. There is no thoracic aortic dissection. Size of the heart is normal. There is no thoracic lymphadenopathy. No pneumothorax or pleural effusion is noted. Emphysema is present. There is no consolidation to suggest pneumonia. Subpleural opacities reflect atelectasis. A 5 mm right lower lobe nodule on image 84 of 256 is unchanged from earlier exams. This is benign given stability. A few additional smaller subpleural nodules are also unchanged. IMPRESSION: 1. No pulmonary emboli identified. 2. No acute intrathoracic findings. 3. Emphysema. ACT 112: Negative or not required by law. Electronically signed by: Cresencio Meng M.D. 05/26/2022 2:17 PM 05/26 ECHOCARDIOGRAM Compared with 11/19/12 study, no significant change The left ventricle is normal in structure and function. Ejection fraction 60-65% Moderate concentric LVH Grade I diastolic dysfunction RV normal in size and function No significant valvular disease on technically limited doppler Hospital Course (1) SOB (shortness of breath): Suspect long COVID on top of emphysema/COPD exacerbation with poor DLCO, however possible also component diastolic heart failure Procal negative, WBC elevation likely to steroids given in ER, continued. 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 Pulm arranging (2) COPD exacerbation: Solu-Medrol 125mg IV x1 in ER, started prednisone 60mg daily 05/27 decreased to 40mg and 3 more days for 5 day course at d/c Conitnue nebs, mucinex, inhalers at home outpt f/u for Nucala/Fasenra as above and for repeat PFTs/pulm rehab (3) Diastolic CHF, acute on chronic: as above, suspect overlap COPD/COVID as well as acute on chronic diastolic heart failure. BNP not elevated however lasix initiated as above with improvement and continued at discharge edema improved/almost completed resolved prior to d/c (4) Chest pain: had epigastric pain and vomiting occurred Solu-medrol given in the ER. IV pantoprazole 40mg and IV famotidine 20mg given. Ondansetron for nausea Initial plan was actually to discharge patient from the ER until this occurred She stated this occurred DIRECTLY after 2 vials of steroids given in ER, no recurrence On famotidine 20mg at home, omeprazole 40mg continued famotidine, protonix while inpatient monitor for any sx, no bleeding, no recurrence of CP. Trop 5.6 on high sens --> NO FURTHER EPISODES REPORTED since admission (5) Bilateral edema of lower extremity: Suspect swelling secondary to right heart failure due to lung disease as above. Urine Protein/Cr ratio to r/o nephrotic syndrome VENOUS DOPPLER NEGATIVE FOR DVT, CTA chest negative LFTs unremarkable TTE -- no change compared to study 2013 -- EF 60-65%, grade I diastolic dysfunction. Moderate concentric LVH. RV normal in size/function. No significant valvular disease on limited study Continue amlodipine for rate control, has remained stable with resuming this today prior to d/c Started and increased lasix to 40mg daily as above.K stable on repeat --> continue at d/c Repeat labs provided for next week to ensure stable kidney function but also discussed weighing herself daily and once completed steroids may be able to decrease to 20mg daily and use additional 20mg as needed (6) Hypoxemia: Aim O2 sats > 88%, mainly to need oxygen on exertion. 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 did also mention brain fog/memory issues as wel l B12 borderline, replacement ordered at d/c Plan VTE Prophylaxis - low risk per calculator, had been ambulating, but given elevated Ddimer though (CT chest negative for PE), and recent COVID, placed on Lovenox BID while inpatient. Had been set on NOAC x 30 days after d/c from initial hospitalization from covid Total Time Total Time Spent Total Time Spent (In Minutes): 45 Discharge Plan Discharge Items Patient Disposition: Home - Self-Care Reason For Visit: COPD EXACERBRATION Discharge Diagnosis: COPD Exacerbation, Hypoxia Goals: You have been hospitalized for an acute medical problem. During your stay at [facility], we have made an effort to correct the problem that brought you to the hospital while keeping you as comfortable as possible. Medications were used to bring your condition under control and your discharge instructions will include directions for any medications you should take after leaving the hospital. Please make sure you see your Primary Care Provider as part of your follow up plan. Activity: As commented below Non-emergency contact: Primary Care Provider and Block Inspector Call non-emergency contact if: you have any medication questions, your symptoms worsen and you have a fever Follow-up/Referrals: Patricia Olvera DO [Primary Care Provider] - Ishmael Pérez MD [Physician] - Diet: Heart Healthy Addtl Attending Provider Instructions: You have been hospitalized for shortness of breath and hypoxia. Imaging was NEGATIVE for DVT or pulmonary embolism (blood clot in the lungs). We consulted pulmonary medicine while inpatient and recommendations are to continue prednisone 40mg daily for another 3 days. Ultrasound of your heart did show abnormal relaxation (diastolic dysfunction) which is likely why addition of some lasix was helpful. Dr Pérez is recommending we continue Lasix 40mg daily. He will also discuss starting a medication for a possible component of eosinophilic component (possible asthma, as we discussed could be related to prior profession). We will have you repeat your labs next week to ensure your kidney function and electrolytes remains stable on this. You have had some increased oxygen needs as well and we repeated a 2step. You need nothing at rest, but have increased needs to 4 L with ambulation. You are also to be set up with pulmonary rehab at discharge and have repeat pulmonary function tests as an outpatient. Dr Pérez's office will help coordinate this. You should follow up with your PCP in the next 7-10 days. I have also checked a B12 level which was on the low side of normal and repl acement has been sent. Please return to the ER with any increased shortness of breath, chest pain, or for any other symptoms concerning for you. It has been a pleasure being a part of the medical team providing for you while you have been in the hospital. Take care! Pending Studies at Discharge: No Stand-Alone Forms: [facility] Medications and DC Order Prescriptions: New furosemide 40 mg tablet 40 mg PO DAILY Qty: 30 0RF prednisone 20 mg tablet 40 mg PO DAILY 3 Days Qty: 6 0RF potassium chloride 10 mEq capsule, extended release 10 meq PO DAILY Qty: 30 0RF guaifenesin [Mucinex] 600 mg Tablet Extended Release 12hr 600 mg PO Q12 Qty: 30 0RF cyanocobalamin (vitamin B-12) 1,000 mcg capsule 1,000 mcg PO DAILY Qty: 30 3RF Continued atorvastatin 40 mg tablet 40 mg PO QAM Qty: 90 3RF omeprazole 40 mg capsule,delayed release(DR/EC) 40 mg PO QAM Qty: 90 2RF Rx Instructions: Take 30 mins before a meal with protein famotidine [Acid Supervisor [employer] (famotidine)] 20 mg tablet 20 mg PO PM Qty: 90 3RF fluoxetine 20 mg capsule 20 mg PO QAM Qty: 90 3RF gabapentin 100 mg capsule 200 mg PO BID 90 Days Qty: 360 1RF Trelegy Ellipta 100-62.5-25 mcg blister with device 1 inh inhalation DAILY Qty: 3 3RF ipratropium-albuterol 0.5 mg-3 mg(2.5 mg base)/3 mL solution for nebulization 3 ml inhalation Q6H PRN (Reason: wheezing) Qty: 180 3RF (DME) nebulizer accessories Kit See Rx Instructions .ROUTE .MEDSUPPLY Qty: 1 0RF Rx Instructions: As directed (DME) nebulizer and compressor Device See Rx Instructions .ROUTE .MEDSUPPLY Qty: 1 0RF Rx Instructions: As directed amlodipine [Norvasc] 5 mg tablet 5 mg PO QAM Qty: 90 3RF clotrimazole 10 mg boone 10 mg mucous membrane TID PRN (Reason: jose) Qty: 90 2RF pramipexole 0.25 mg tablet 0.25 mg PO .DAILY@1600 pramipexole 0.25 mg tablet 0.5 mg PO .UD Rx Instructions: TAKE TWO TABS 2 HOURS BEFORE BEDTIME albuterol sulfate 90 mcg/actuation HFA aerosol inhaler 2 puff inhalation Q4H PRN (Reason: cough/wheeze/shortness of breath) Qty: 8.5 5RF Rx Instructions: use with "spacer" device Changed (DME) Oxygen Home Liters Per Minute See Rx Instructions .ROUTE .MEDSUPPLY Qty: 1 0RF Rx Instructions: 4 liters NC O2 with activity/ambulation. Discharge Orders: Discharge Order (Routine); Ordered 05/28/22 Ordered By: Mercedez Hamm Admission Data Admit Date/Time: 05/26/22 16:43 Attending Provider: Kraig Solis Admit Provider: Cristiano Rodriguez Primary Care Provider: Patricia Olvera Other Providers: Ishmael Pérez Coding Level of Care Code 13377 OBS Care - Discharge Diagnoses SOB (shortness of breath) R06.02 COPD exacerbation J44.1 Diastolic CHF, acute on chronic I50.33 Chest pain R07.9 Bilateral edema of lower extremity R60.0 Hypoxemia R09.02 Long COVID U09.9 Restless legs syndrome G25.81 B12 deficiency E53.8
[2022-05-28 08:13] LABS: Basophils # (auto) 0.02 K/uL (0-0.2); Basophils % (auto) 0.1 %; Hematocrit (blood only) 33.5 % (34.1-44.9); Hemoglobin 11.2 g/dl (12.0-16.0); Immature Granulocytes # (auto) 0.09 K/uL (0.00-0.02); Immature Granulocytes % (auto) 0.5 %; Lymphocytes # (auto) 3.35 K/uL (1.2-3.4); Lymphocytes % (auto) 19.2 %; Mean Corpuscular Hemoglobin 32.3 pg (25.0-34.0); Mean Corpuscular Hgb Conc 33.4 g/dL (32.0-36.0); Mean Corpuscular Volume 96.5 fL (80.0-100.0); Mean Platelet Volume 9.8 fL (9.4-12.3); Monocytes # (auto) 1.49 K/uL (0.24-0.82); Monocytes % (auto) 8.5 %; Neutrophils # (auto) 12.53 K/uL (1.4-6.5); Neutrophils % (auto) 71.7 %; Platelet Count 279 K/uL (130-400); RDW Coefficient of Variation 13.2 % (11.5-14.5); RDW Standard Deviation 46.8 fL (36.4-46.3); Red Blood Count 3.47 M/uL (3.93-5.22); White Blood Count 17.48 K/ul (4.8-10.8)
[2022-05-28] MEDS: FLUoxetine HCL 20 MG CAP PO SCH (08:39)
[2022-05-28] MEDS: UMECLIDINIUM/VILANTEROL 62.5/25MCG 7 PUFFS/INHALER INH SCH (08:39)
[2022-05-28] MEDS: GABAPENTIN 100 MG CAP PO SCH (08:39)
[2022-05-28] MEDS: ATORVASTATIN 40 MG TAB PO SCH (08:39)
[2022-05-28] MEDS: PANTOprazole 40 MG TAB PO SCH (08:39)
[2022-05-28] MEDS: FLUTICASONE FUROATE 100MCG 14 PUFFS/INHALER INH SCH (08:39)
[2022-05-28] MEDS: guaiFENesin 600 MG TABCR PO SCH (08:39)
[2022-05-28] MEDS: ENOXAPARIN INJ 40 MG/0.4 ML SYR SQ SCH (08:40)
[2022-05-28 08:41] LABS: BUN Creatinine Ratio 22.2 (10-20); Calcium 8.9 mg/dl (8.5-10.1); Creatinine Clr Calc Pharmacy 58.4 ml/min; Est GFR (African American) 65.1 ml/min; Est GFR (Non-African American) 56.1 ml/min; Potassium 3.9 mmol/L (3.5-5.1)
[2022-05-28] MEDS ORDERED: FUROSEMIDE 40 MG TAB PO SCH (09:00)
[2022-05-28] MEDS ORDERED: predniSONE 20 MG TAB PO SCH (09:00)
[2022-05-28] MEDS ORDERED: amLODIPine BESYLATE 5 MG TAB PO ONE (09:58)
--- NOTE | 2022-05-28 10:19 | Pulmonology Progress Note ---
Date of Service May 28, 2022 Assessment & Plan (1) Diastolic CHF, acute on chronic: Plan: Discharge patient home on 40 mg p.o. Lasix daily. Patient should check daily weights. Grade 1 diastolic dysfunction noted on echo. (2) SOB (shortness of breath): Plan: Chronic secondary to obesity, deconditioning and pulmonary emphysema. Recommend maintaining euvolemic status with diuresis. No clear signs of COPD exacerbation at this time. I would not give her more than a 5-day course of prednisone. I decreased her prednisone from 60 mg to 40 mg. 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 Will need outpatient pulmonary rehab. Completed pulmonary rehab about 3 years ago. Will need updated PFTs. Last PFT completed 2019 which revealed a normal FEV1. DLCO 41%. (3) Hypoxemia: Plan: Secondary to severe emphysema. Maintain sats around 88 to 92%. Patient will need oxygen concentrator. Case management consult placed. Patient stable for discharge home. Will need to step prior to discharge to evaluate flow needs with oxygen. 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 Continue current inhalers. Plan Pulm to sign off. Thanks for the consult. Admission and Anticipated Discharge Date Admission Date: May 26, 2022 Subjective Patient seen examined. Dyspnea improved. Minimal cough. Review of Systems Review of Systems: All systems reviewed & are unremarkable except as noted in HPI & below Physical Exam Constitutional: WD/WN, vitals as above well nourished Eyes: PERRL, conjunctivae normal, anicteric sclerae ENMT: external ear and nose normal, oropharynx normal Neck: normal visual inspection Respiratory: Prolonged phase of exhalation. No wheezes. Cardiovascular: Normal rhythm and rate. No murmurs. 1+ edema. Musculoskeletal: no cyanosis or clubbing, extremities motor strength 5/5 Skin: no rashes, warm and dry Neurologic: CN's II-XI intact bilaterally Psychiatric: A+Ox3, euthymic affect Eye Contact: good eye contact Lymphatic: no cervical or axillary lymphadenopathy Results & Data Results & Data ([facility]) Vital Signs (Past 12 Hours) Vital Signs Temp Pulse Pulse Pulse Pulse Pulse Pulse 05/28/22 07:48 108 H 94 H 85 94 H 92 H 10/21/22 07:30 05/28/22 07:26 36.7 C 72 05/28/22 07:06 79 05/28/22 00:31 Pulse Resp Resp Resp Resp Resp Resp 05/28/22 07:48 89 20 18 05/28/22 07:30 05/28/22 07:26 16 05/28/22 07:06 17 05/28/22 00:31 BP Pulse Ox Pulse Ox Pulse Ox Pulse Ox Pulse Ox Pulse Ox 05/28/22 07:48 85 L 86 L 91 83 L 95 05/28/22 07:30 05/28/22 07:26 130/70 92 05/28/22 07:06 97 05/28/22 00:31 Pulse Ox O2 Del Method O2 Flow Rate O2 Flow Rate O2 Flow Rate O2 Flow Rate 05/28/22 07:48 95 2 3 4 05/28/22 07:30 Nasal Cannula 3 05/28/22 07:26 Nasal Cannula 3 05/28/22 07:06 Nasal Cannula 2 05/28/22 00:31 Nasal Cannula 3 PG Care Time/CCT Total # of Minutes Spent Total Time Spent with Patient: Total time spent is greater than 50% in coordination of care (as documented) at patient's floor/unit and/or counseling patient: Coding Level of Care Code 48020 Subseq Hosp Care Lvl 2 Diagnoses Diastolic CHF, acute on chronic I50.33 SOB (shortness of breath) R06.02 Hypoxemia R09.02 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
== END 2022-05-28 12:25 | disposition home or self-care (01) ==
LOC: ED 10:31 → 3E 10:31 → SUATTDRO 16:43 → 3E 18:19

== ENCOUNTER 2022-12-14 10:10 | Observation (INO) ==
--- NOTE | 2022-12-14 10:27 | Emergency Department Note ---
Impression & Plan Precordial chest pain, Exertional dyspnea ED Provider Note NAME: NANNETTE JI AGE: 77 SEX: F : 1945 ARRIVES VIA: Ambulance INFORMANT: [Patient][ems] ED PROVIDER(S): [Navin Staton MD] CHIEF COMPLAINT: Chest pain HISTORY OF PRESENT ILLNESS: The patient is a 77-year-old female with a history of COPD. She typically wears 3 L of oxygen. Lately, she has noticed more shortness of breath with exertion than baseline. She has to stop and rest to catch her breath. Yesterday, she had some pressure/heaviness in her chest that was relieved with her 's nitroglycerin. The pain had come on at rest. Today, she was in her car sitting when she developed the pain again. It was pressure-like. No radiation of discomfort. She felt a bit sweaty, no nausea. Again, she took her 's nitroglycerin and had pain relief. In route to the hospital, the patient was given 4 baby aspirin by EMS. She is currently pain-free. The patient was told that her right heart was weak and that this had led to her chronic pedal edema. No history of CO. PMHx/PSHx: See Below SOCIAL HISTORY: See Below. PHYSICAL EXAM: GENERAL: Patient is in no acute distress. HEENT: No acute trauma, normocephalic atraumatic, mucous membranes moist, no nasal congestion. NECK: No stridor, no adenopathy, no meningismus, trachea is midline. LUNGS: Clear to auscultation bilaterally, no wheeze, no rhonchi, breath sounds equal. HEART: Without murmurs gallops or rubs, regular rate and rhythm. ABDOMEN: Soft, nontender, bowel sounds positive, no peritonitis. EXTREMITIES: No cyanosis, mild bilateral pedal edema, full range of motion of all the joints without pain or difficulty, no signs for acute trauma. NEUROLOGIC: Oriented x 3, no acute motor or sensory deficits, no focal weakness. SKIN: No rash, no jaundice, no diaphoresis. DIFFERENTIAL DIAGNOSIS: Angina, CO, pneumonia, pneumothorax, PE, musculoskeletal pain, exacerbation of COPD, among others. EMERGENCY DEPARTMENT COURSE/PROCEDURES: Prior/Outside records reviewed: Previous cardiology note ECG per my interpretation: Indication was chest pain. The ECG shows a normal sinus rhythm with a rate of 67. There is some poor R wave progression. No ST elevation, no PVCs. The QTc is 445. Continuous Cardiac Monitoring per my interpretation: An order was placed for continuous cardiac monitoring. The monitor shows a rate of 69 with normal sinus rhythm. MEDICAL DECISION MAKING: There is no leukocytosis or concerning anemia. There is a normal platelet count. No concerning coagulopathy. No renal failure or significant electrolyte abnormality. No concerning liver enzyme elevation. No evidence for pancreatitis. TSH was slightly high however, the T4 was normal. ECG shows a normal sinus rhythm, no ischemia or dysrhythmia. Cardiac enzyme testing x1 is not consistent with acute cardiac injury. COVID test returned negative. Chest film per my review did not show mediastinal widening, pneumonia or pneumothorax. The patient presents with precordial chest pain that resolved with nitroglycerin. This was her 's nitroglycerin. She has recently noticed some exertional dyspnea. Given the patient's complaints and history, I do think further cardiac work-up is warranted. Hospitalization is indicated. I spoke with the patient and case management, the on-call hospitalist was consulted. DISPOSITION: Patient's presentation and findings warrant a hospital stay. Past Med/Surg History Medical History Acid reflux Anemia hx Anxiety Bursitis of right hip CAD (coronary artery disease) MILD NONOCCLUSIVE PER 2014 CARDIAC CATH > no cardio Cervical disc disease Chronic obstructive pulmonary disease D.O.E Diastolic congestive heart failure Distal radius fracture, left Dyspnea on exertion History of COVID-19 end of march 2022, home test, admitted to [place]; loss taste, fatigue, brain fog, shortness of breath>put on 10L O2 continuously, no other symptoms currently History of tobacco abuse Hoarseness of voice HTN (hypertension) Hypercholesterolemia Hypoxemia Long COVID LPRD (laryngopharyngeal reflux disease) Obesity (BMI 30.0-34.9) Obstructive sleep apnea waiting on new CPAP On home oxygen therapy pt placed on continuous oxygen therapy following her Covid-19 dx. pt stated "she is on 10L oxygen while at home. 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 Elisa Solomon voice Restless legs syndrome Shortness of breath on exertion Sinus congestion Tinnitus Xerostomia Surgical History History of adenoidectomy History of cardiac cath (2015) 2015, [facility], no stents; f/u PCP History of cataract surgery bilat History of cervical spinal surgery ACDF History of cholecystectomy History of esophagogastroduodenoscopy (EGD) History of tonsillectomy History of tooth extraction History of total hip arthroplasty RIGHT Hx of colonoscopy Hx of tubal ligation S/P lumbar fusion S/P ORIF (open reduction internal fixation) fracture L wrist Status post wrist surgery R tendon repair Family History Brother KELLY (obstructive sleep apnea) Restless leg Paranoid Father , age 63 Kidney disease Diabetes Mother , age 89 Heart disease Hearing loss Hypertension Myocardial infarction Sister Restless leg Grandfather (Maternal) , age 43 Heart disease Myocardial infarction, Onset Age: 43 Grandmother (Paternal) Diabetes Stroke Grandfather (Paternal) Cancer Other No family history of adverse response to anesthesia No family history of bleeding disorder Denies family history of Ovarian cancer Prostate cancer Deep vein thrombosis Breast cancer Colorectal cancer Pulmonary embolism Social History Smoking Status: Former smoker Tobacco Type: Cigarettes Age Started Using Tobacco: 21; packs per day: 1; Second Hand Exposure: No; Do You Dip or Chew Tobacco: No; Hx Alcohol Use: No Hx Substance Use: No Preferred Language: Thai Communication Ability: Effective Visual Impairment: No Limitations Hearing Ability: Normal Remodeler Required: No Beliefs That Will Affect Care: None marital status: Current Living Situation: Spouse Current Living Situation Comment: lives in [place] current occupational status: retired 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 How many Children do You have: 2 Other Information That Helps Us Care for You: No Feels Safe at Home: Yes Childhood Exposure to Second-Hand Smoke: Yes Diet: regular Diet Comment: regular caffeine: Yes during the past year weight has: remained stable Dental Care, Regularly: Yes Physical Activity Frequency: 1-2 Times per Week Seatbelt Use: always Sunscreen Use: Yes Assistive Devices: Oxygen - Continuous Allergies Allergies Allergy/AdvReac Type Severity Reaction Status Date / Time cat dander AdvReac Intermediate WATERY Verified 12/14/22 14:12 ITCHY EYES, NOSE Home Meds Home Medications Medication Instructions Recorded Confirmed pramipexole 0.25 mg tablet 0.25 - 0.5 mg PO UD 06/18/22 12/14/22 alendronate 70 mg tablet (Fosamax) 70 mg PO Q7D 08/26/22 12/14/22 magnesium 500 mg tablet 500 mg PO QAM 08/26/22 12/14/22 rivaroxaban 10 mg tablet (Xarelto) 10 mg PO QAM 08/26/22 12/14/22 biotin 10 mg tablet 10 mg PO DAILY 12/14/22 12/14/22 Previous Rx's Medication Instructions Recorded fluoxetine 20 mg capsule 20 mg PO QAM #90 caps 02/16/22 albuterol sulfate 90 mcg/actuation 2 puff inhalation Q4H PRN 04/09/22 aerosol inhaler cough/wheeze/shortness of breath #8.5 grams amlodipine 5 mg tablet (Norvasc) 5 mg PO QAM #90 tabs 05/17/22 Oxygen Home #1 ea 05/28/22 Portable Oxygen #1 ea 06/24/22 omeprazole 40 mg capsule,delayed 40 mg PO QAM #90 caps 06/28/22 release gabapentin 100 mg capsule 200 mg PO BID 90 days #360 caps 11/15/22 atorvastatin 40 mg tablet 40 mg PO QAM #90 tabs 11/29/22 cyanocobalamin (vitamin B-12) 1,000 mcg PO QAM #90 caps 11/29/22 1,000 mcg capsule famotidine 20 mg tablet (Acid 20 mg PO HS #90 tabs 11/29/22 Towel Hemmer (famotidine)) fluticasone fur. 100 mcg-umeclid 1 inh inhalation QAM #60 ea 11/29/22 62.5 mcg-vilant 25 mcg inhalat.powder (Trelegy Ellipta) furosemide 40 mg tablet 40 mg PO QAM #90 tabs 11/29/22 ipratropium 0.5 mg-albuterol 3 mg 3 ml inhalation Q6H PRN wheezing 11/30/22 (2.5 mg base)/3 mL nebulization #180 mL soln potassium chloride 10 mEq 10 meq PO QAM #90 caps 12/07/22 capsule,extended release Results & Data (ED) Vital Signs Vital Signs - 24 hr 12/14/22 10:15 12/14/22 10:23 12/14/22 10:15 Temperature 37.2 C Temperature Source Oral Pulse Rate 67 Pulse Rhythm Regular Pulse Strength Normal Respiratory Rate 21 Respiratory Effort / Characteristics Non-Labored Non-Labored Spontaneous Respiratory Depth Normal Normal Respiratory Pattern Regular Blood Pressure 129/71 Blood Pressure Mean 90 Blood Pressure Position Lying Pulse Oximetry 97 98 Oxygen Delivery Method Nasal Cannula Nasal Cannula Nebulizer Nasal Cannula Oxygen Flow Rate 3 3 3 Sepsis Recent Fever Within 48 Hours No Sepsis New/Unexplained Change in Mental Status N/A Sepsis Action Taken by Nursing No Action Required 12/14/22 10:15 Temperature Temperature Source Pulse Rate Pulse Rhythm Pulse Strength Respiratory Rate Respiratory Effort / Characteristics Respiratory Depth Respiratory Pattern Blood Pressure Blood Pressure Mean Blood Pressure Position Pulse Oximetry 97 Oxygen Delivery Method Nasal Cannula Oxygen Flow Rate 3 Sepsis Recent Fever Within 48 Hours Sepsis New/Unexplained Change in Mental Status Sepsis Action Taken by Residential Medications Current Medication List: was personally reviewed by me Laboratory Data Attestation: I reviewed the patient's lab results. 12/14/22 10:29 12/14/22 10:29 Lab Results 12/14/22 12/14/22 12/14/22 Range/Units 10:29 10:29 10:29 WBC 10.61 (4.8-10.8) K/ul RBC 3.89 L (4.20-5.40) M/uL Hgb 12.3 (12.0-16.0) g/dl Hct 37.5 (37.0-47.0) % MCV 96.4 (80.0-100.0) fL MCH 31.6 (25.0-34.0) pg MCHC 32.8 (32.0-36.0) g/dL RDW Std Deviation 51.2 H (36.4-46.3) fL RDW Coeff of Soraida 14.5 (11.5-14.5) % Plt Count 294 (130-400) K/uL MPV 9.8 (9.4-12.4) fL Immature Gran % (Auto) 0.3 % Neut % (Auto) 67.0 % Lymph % (Auto) 20.5 % [place] % (Auto) 10.3 % Eos % (Auto) 1.6 % Baso % (Auto) 0.3 % Neut # (Auto) 7.11 H (1.40-6.50) K/uL Lymph # (Auto) 2.18 (1.2-3.4) K/uL [place] # (Auto) 1.09 H (0.11-0.59) K/uL Eos # (Auto) 0.17 (0-0.50) K/uL Baso # (Auto) 0.03 (0-0.2) K/uL Immature Gran # (Auto) 0.03 (0.01-0.20) K/uL PT 10.6 (9.0-12.0) Seconds INR 1.0 (0.9-1.1) APTT 20.5 L (21.0-31.0) Seconds PTT Ratio 0.7 Sodium 137 (136-145) mmol/L Potassium 3.9 (3.5-5.1) mmol/L Chloride 101 (98-107) mmol/L Carbon Dioxide 28 (21-32) mmol/L Anion Gap 8 (3-11) BUN 14 (6-23) mg/dl Creatinine 1.10 (0.6-1.2) mg/dl Est Cr Clr Drug Dosing 50.9 ml/min Est GFR ( Amer) 56.9 ml/min Est GFR (Non-Af Amer) 49.1 ml/min BUN/Creatinine Ratio 12.7 (10-20) Glucose 102 H (70-99(Fasting)) mg/dl Calcium 9.0 (8.6-10.3) mg/dl Magnesium 2.1 (1.7-2.4) mg/dl Total Bilirubin 1.0 (0.2-1.0) mg/dl AST 20 (13-39) U/L ALT 16 (7-52) U/L Alkaline Phosphatase 112 H (34-104) U/L Troponin I High Sens 5.9 (0-14) pg/ml B-Natriuretic Peptide (0-100) pg/ml Total Protein 7.5 (6.0-8.3) gm/dl Albumin 4.2 (3.4-5.0) gm/dl Globulin 3.3 (2.5-4.0) gm/dl Albumin/Globulin Ratio 1.3 (0.9-2) Lipase 47 (11-82) U/L TSH (0.300-4.500) uIu/ml Free T4 (0.61-1.60) ng/dl Free T3 (2.3-4.2) pg/ml SARS-CoV-2, RNA, NAAT (NEGATIVE) 12/14/22 12/14/22 12/14/22 Range/Units 10:29 10:29 12:22 WBC (4.8-10.8) K/ul RBC (4.20-5.40) M/uL Hgb (12.0-16.0) g/dl Hct (37.0-47.0) % MCV (80.0-100.0) fL MCH (25.0-34.0) pg MCHC (32.0-36.0) g/dL RDW Std Deviation (36.4-46.3) fL RDW Coeff of Soraida (11.5-14.5) % Plt Count (130-400) K/uL MPV (9.4-12.4) fL Immature Gran % (Auto) % Neut % (Auto) % Lymph % (Auto) % [place] % (Auto) % Eos % (Auto) % Baso % (Auto) % Neut # (Auto) (1.40-6.50) K/uL Lymph # (Auto) (1.2-3.4) K/uL [place] # (Auto) (0.11-0.59) K/uL Eos # (Auto) (0-0.50) K/uL Baso # (Auto) (0-0.2) K/uL Immature Gran # (Auto) (0.01-0.20) K/uL PT (9.0-12.0) Seconds INR (0.9-1.1) APTT (21.0-31.0) Seconds PTT Ratio Sodium (136-145) mmol/L Potassium (3.5-5.1) mmol/L Chloride (98-107) mmol/L Carbon Dioxide (21-32) mmol/L Anion Gap (3-11) BUN (6-23) mg/dl Creatinine (0.6-1.2) mg/dl Est Cr Clr Drug Dosing ml/min Est GFR ( Amer) ml/min Est GFR (Non-Af Amer) ml/min BUN/Creatinine Ratio (10-20) Glucose (70-99(Fasting)) mg/dl Calcium (8.6-10.3) mg/dl Magnesium (1.7-2.4) mg/dl Total Bilirubin (0.2-1.0) mg/dl AST (13-39) U/L ALT (7-52) U/L Alkaline Phosphatase (34-104) U/L Troponin I High Sens (0-14) pg/ml B-Natriuretic Peptide 14 (0-100) pg/ml Total Protein (6.0-8.3) gm/dl Albumin (3.4-5.0) gm/dl Globulin (2.5-4.0) gm/dl Albumin/Globulin Ratio (0.9-2) Lipase (11-82) U/L TSH 5.289 H (0.300-4.500) uIu/ml Free T4 1.25 (0.61-1.60) ng/dl Free T3 (2.3-4.2) pg/ml SARS-CoV-2, RNA, NAAT NEGATIVE (NEGATIVE) 12/14/22 Range/Units 12:22 WBC (4.8-10.8) K/ul RBC (4.20-5.40) M/uL Hgb (12.0-16.0) g/dl Hct (37.0-47.0) % MCV (80.0-100.0) fL MCH (25.0-34.0) pg MCHC (32.0-36.0) g/dL RDW Std Deviation (36.4-46.3) fL RDW Coeff of Soraida (11.5-14.5) % Plt Count (130-400) K/uL MPV (9.4-12.4) fL Immature Gran % (Auto) % Neut % (Auto) % Lymph % (Auto) % [place] % (Auto) % Eos % (Auto) % Baso % (Auto) % Neut # (Auto) (1.40-6.50) K/uL Lymph # (Auto) (1.2-3.4) K/uL [place] # (Auto) (0.11-0.59) K/uL Eos # (Auto) (0-0.50) K/uL Baso # (Auto) (0-0.2) K/uL Immature Gran # (Auto) (0.01-0.20) K/uL PT (9.0-12.0) Seconds INR (0.9-1.1) APTT (21.0-31.0) Seconds PTT Ratio Sodium (136-145) mmol/L Potassium (3.5-5.1) mmol/L Chloride (98-107) mmol/L Carbon Dioxide (21-32) mmol/L Anion Gap (3-11) BUN (6-23) mg/dl Creatinine (0.6-1.2) mg/dl Est Cr Clr Drug Dosing ml/min Est GFR ( Amer) ml/min Est GFR (Non-Af Amer) ml/min BUN/Creatinine Ratio (10-20) Glucose (70-99(Fasting)) mg/dl Calcium (8.6-10.3) mg/dl Magnesium (1.7-2.4) mg/dl Total Bilirubin (0.2-1.0) mg/dl AST (13-39) U/L ALT (7-52) U/L Alkaline Phosphatase (34-104) U/L Troponin I High Sens (0-14) pg/ml B-Natriuretic Peptide (0-100) pg/ml Total Protein (6.0-8.3) gm/dl Albumin (3.4-5.0) gm/dl Globulin (2.5-4.0) gm/dl Albumin/Globulin Ratio (0.9-2) Lipase (11-82) U/L TSH (0.300-4.500) uIu/ml Free T4 (0.61-1.60) ng/dl Free T3 4.17 (2.3-4.2) pg/ml SARS-CoV-2, RNA, NAAT (NEGATIVE) Administered Medications Pramipexole Dihydrochloride (Pramipexole Dihydrochlo 0.25 Mg Tab) 0.25 mg PO DAILY@1600 ALEJANDRO Stop: 01/13/23 15:59 Last Admin: 12/14/22 16:02 Dose: 0.25 mg Documented By: LUKE Discontinued Medications Furosemide (Furosemide 40 Mg/4 Ml Vial) 40 mg IV ONE ONE Stop: 12/14/22 14:28 Last Admin: 12/14/22 16:02 Dose: 40 mg Documented By: LUKE Imaging Data Radiologist's Impression: Chest X-Ray 12/14/22 10:23 SINGLE VIEW CHEST CLINICAL HISTORY: Atypical chest pain. FINDINGS: An AP, portable, upright chest radiograph is compared to chest x-ray and chest CT dated 06/18/2022. The heart is top normal in size noting atherosclerotic calcification of the thoracic aorta. Emphysema and chronic interstitial thickening is similar to previous. There is bibasilar scarring/atelectasis. No airspace consolidation or large pleural effusion is identified. No pneumothorax is seen. The skeletal structures are osteopenic. The bony thorax is grossly intact. Fusion hardware is seen in the lower cervical spine. IMPRESSION: Emphysematous change with no acute cardiopulmonary abnormality. ACT 112: Negative or not required by law. Electronically signed by: Navin Pichardo M.D. 12/14/2022 10:47 AM Discharge Plan Visit Data Chief Complaint: Cardiac Assessment Stated Complaint: CHEST PAIN ED Provider: Navin Staton Discharge Problem: Precordial chest pain, Exertional dyspnea Patient Disposition: Admitted As Inpatient Condition: Good Discharge Instructions Interventions: ED Discharge Assessment Last Done: 12/14/22 13:55
--- NOTE | 2022-12-14 10:48 | XRay Report ---
SINGLE VIEW CHEST CLINICAL HISTORY: Atypical chest pain. FINDINGS: An AP, portable, upright chest radiograph is compared to chest x-ray and chest CT dated 06/2022. The heart is top normal in size noting atherosclerotic calcification of the thoracic aorta. Emphysema and chronic interstitial thickening is similar to previous. There is bibasilar scarring/ate lectasis. No airspace consolidation or large pleural effusion is identified. No pneumothorax is seen. The skeletal structures are osteopenic. The bony thorax is grossly intact. Fusion hardware is seen i n the lower cervical spine. IMPRESSION: Emphysematous change with no acute cardiopulmonary abnormality. ACT 112: Negative or not required by law. Electronically signed by: Navin Pichardo M.D. 12/14/2022 10:47 AM
[2022-12-14 10:58] LABS: Basophils # (auto) 0.03 K/uL (0-0.2); Basophils % (auto) 0.3 %; Eosinophils # (auto) 0.17 K/uL (0-0.50); Eosinophils % (auto) 1.6 %; Hematocrit (blood only) 37.5 % (37.0-47.0); Hemoglobin 12.3 g/dl (12.0-16.0); Immature Granulocytes # (auto) 0.03 K/uL (0.01-0.20); Immature Granulocytes % (auto) 0.3 %; Lymphocytes # (auto) 2.18 K/uL (1.2-3.4); Lymphocytes % (auto) 20.5 %; Mean Corpuscular Hemoglobin 31.6 pg (25.0-34.0); Mean Corpuscular Hgb Conc 32.8 g/dL (32.0-36.0); Mean Corpuscular Volume 96.4 fL (80.0-100.0); Mean Platelet Volume 9.8 fL (9.4-12.4); Monocytes # (auto) 1.09 K/uL (0.11-0.59); Monocytes % (auto) 10.3 %; Neutrophils # (auto) 7.11 K/uL (1.40-6.50); Platelet Count 294 K/uL (130-400); RDW Coefficient of Variation 14.5 % (11.5-14.5); RDW Standard Deviation 51.2 fL (36.4-46.3); Red Blood Count 3.89 M/uL (4.20-5.40); White Blood Count 10.61 K/ul (4.8-10.8)
[2022-12-14 11:26] LABS: Partial Thromboplastin Ratio 0.7; Partial Thromboplastin Time 20.5 Seconds (21.0-31.0); Prothrombin Time 10.6 Seconds (9.0-12.0)
[2022-12-14 11:32] LABS: Thyroid Stimulating Hormone 5.289 uIu/ml (0.300-4.500)
[2022-12-14 11:33] LABS: Troponin I High Sensitivity 5.9 pg/ml (0-14)
[2022-12-14 11:42] LABS: Albumin Level 4.2 gm/dl (3.4-5.0); Magnesium 2.1 mg/dl (1.7-2.4); Potassium 3.9 mmol/L (3.5-5.1)
[2022-12-14 11:48] LABS: Albumin Globulin Ratio 1.3 (0.9-2); BUN Creatinine Ratio 12.7 (10-20); Creatinine Clr Calc Pharmacy 50.9 ml/min; Est GFR (African American) 56.9 ml/min; Est GFR (Non-African American) 49.1 ml/min; Globulin 3.3 gm/dl (2.5-4.0); Total Protein 7.5 gm/dl (6.0-8.3)
[2022-12-14 12:08] LABS: T4 Free Thyroxine 1.25 ng/dl (0.61-1.60)
--- NOTE | 2022-12-14 12:31 | History & Physical Report ---
Date of Service December 14, 2022 Assessment & Plan (1) Chest pain: Plan: Concerning for ACS given relief with nitro , relieving that troponin negative on initially draw, EKG NSR, cannot r/o anterior infarct however no change compared to prior Jun 2022 Weights compared to May/Jun admission up about 4kg per system, suspect aspect of diastolic heart failure also contributing to symptoms Prior cath 2014 mild nonobstructive disease. NOT on baby aspirin daily at baseline symptoms concerning for ACS given improvement w/ nitro, however she is reporting similar to prior admission. Suspect volume overload/weights up in system rather than cardiac etiology given normal troponin/EKG w/o ST elevation/TWI noted Monitor on telemetry for arrhythmia Trend troponin x2 more sets EKG w/ CP Check BN as weights were ~89kg, currently 93.5kg and reporting increased edema/gut edema as well as orthopnea/worsening SOB w/ exertion Nitro available prn for recurrence (could also consider increasing protonix) Repeat ECHO, defer to cards for stress testing/NPO status. Will message w/ c onsult information Cards consult -- recently seen Dr Tomas in office, holter monitor w/ episodes SVT and not on BB therapy ?stress testing however appeared in last note patient unable to tolerate exercise testing. May need to consider dobutamine/other Lasix 40mg IV x 1 -- monitor response and consider increasing her home lasix (admit last year started on lasix 20mg daily, increased to 40mg at discharge) Will hold amlodipine for now given likely contributing to LE swelling, prefer BB w/ elevated HRs to improve her symptom control Monitor I&Os, daily weights Lipid/A1c w/ AM labs Start ASA 81mg daily unless otherwise noted by cardiology Suspect benefit from use of metoprolol rather than amlodipine, consideration for BEVERLY/ARB pending further eval. Consideration to switch from lasix to torsemide given gut edema reported as well vs additional prn lasix dosing for weight gain -- defer to cards. ?benefit from CHF clinic referral as well PT/OT consults Is on xarelto for superficial thrombophlebitis 10mg daily which we will continue CBC/BMP/Mag in AM (2) CAD (coronary artery disease): Plan: Noted most recent cath 2014, mild nonocclusive disease noted Not on BB, -- consider per cards given recent event monitor w/ palpitations/SVT noted continues on atorvastatin does not appear on baby aspirin either - was given 324 w/ EMS, will continue 81mg for AM (3) Chronic obstructive pulmonary disease: Plan: on 3L baseline, currently on such. no increased sputum production/fevers or chills Continue inhalers/nebulizers incentive spirometer/flutter valve mucinex to help clear secretions supplemental O2 to maintain sats (4) SVT (supraventricular tachycardia): Plan: noted on recent event monitor mag 2.1 -- keep >=2 monitor on telemetry consideration for BB therapy to control symptoms -- defer to cards. Currently in the 60-760s, but suspect exacerbated w/ her nebulizer therapy (5) Diastolic congestive heart failure: Plan: noted hx, EF wnl last ECHO 60-65%. noted grade I diastolic dysfunction check BNP Lasix 40mg IV x 1 now and can monitor response -- additional dosing lasix pending response/output and will not order her usual PO for AM pending need for additional IV dosing hold amlodipine check Bnp/echo, cards consult as above, monitor weights/I&Os (weights up as above) consider CHF clinic referral (6) Bursitis of right hip: Plan: recent injection w/ Dr Joyce on 11/08 (7) Benign essential hypertension: Plan: on amlodipine 5mg daily, lasix 40mg daily (8) Palpitations: Plan: noted as above (9) Obstructive sleep apnea: Plan: CPAP HS (10) Pulmonary emphysema: Plan: noted, o2 to maintain sats (11) Peripheral neuropathy: Plan: continue pramipexole check b12 w/ am labs History of Present Illness Chief Complaint: chest pain, increased shortness of breath Primary Care Provider: Patricia Olvera, DO 77yo female with PMHx significant for COPD (baseline 3L since, 2nd long COVID infection March 2022, follows pulm Dr Pérez), suspected diastolic heart failure Admission May 2022 w/ lasix started at 20mg daily and increased to 40mg daily and was weaned to RA at rest but required 4L w/ ambulation and was set up with pulmonary rehab at discharge. Has seen cardiology 08/25 with increased palpitations reported and was set up with cardiac event monitor which showed "frequent SVT and ventricular ectopy wi thout any high risk arrhythmias. Interestingly, she only had 6 exertionally associated sinus tachycardia triggering any symptoms" and does not feel her ectopy per their note. Noted amlodipine suspected to precipitate LE edema and lasix seeming to alleviate that fairly well. CXR reportedly negative for acute finding but notes emphysematous change. Is on xarelto 10mg daily for thrombophlebitis of left cephalic vein, noted on imaging 06/30/22. She was having some chest pain yesterday (reportedly feeling like pressure) relieved with her 's nitroglycerin and then had another episode this mo rning at around 8am for a couple of seconds at rest today which she took an additional nitroglycerin for with relief but had some nausea/dry heaves and her wanted her to come to the ER. Given 4 baby aspirin by EMS and is currently chest pain free. She notes this does feel similar to her episode in . She is unable to sleep in bed due to SOB symptoms and sleeps in recliner. Notes steroid use over winter for shoulder pain, increased weight gain and LE swelling which they thought was from amlodipine she notes. She notes no chest pain at present or radiation of chest pain with prior episodes. Discussed obtaining BNP level/ECHO and likely will give dose now and monitor response while ruling out cardiac cause. No recent fevers/chills. No abdominal pain. Allergies Allergy/AdvReac Type Severity Reaction Status Date / Time cat dander AdvReac Intermediate WATERY Verified 12/14/22 14:12 ITCHY EYES, NOSE Home Medications Medication Instructions Recorded Confirmed Type fluoxetine 20 mg capsule 20 mg PO QAM #90 caps 02/16/22 12/14/22 Rx albuterol sulfate 90 mcg/actuation 2 puff inhalation Q4H PRN 04/09/22 12/14/22 Rx aerosol inhaler cough/wheeze/shortness of breath #8.5 grams amlodipine 5 mg tablet (Norvasc) 5 mg PO QAM #90 tabs 05/17/22 12/14/22 Rx Oxygen Home #1 ea 05/28/22 12/14/22 Rx pramipexole 0.25 mg tablet 0.25 - 0.5 mg PO UD 06/18/22 12/14/22 History Portable Oxygen #1 ea 06/24/22 12/14/22 Rx omeprazole 40 mg capsule,delayed 40 mg PO QAM #90 caps 06/28/22 12/14/22 Rx release alendronate 70 mg tablet (Fosamax) 70 mg PO Q7D 08/26/22 12/14/22 History magnesium 500 mg tablet 500 mg PO QAM 08/26/22 12/14/22 History rivaroxaban 10 mg tablet (Xarelto) 10 mg PO QAM 08/26/22 12/14/22 History gabapentin 100 mg capsule 200 mg PO BID 90 days #360 caps 11/15/22 12/14/22 Rx atorvastatin 40 mg tablet 40 mg PO QAM #90 tabs 11/29/22 12/14/22 Rx cyanocobalamin (vitamin B-12) 1,000 mcg PO QAM #90 caps 11/29/22 12/14/22 Rx 1,000 mcg capsule famotidine 20 mg tablet (Acid 20 mg PO HS #90 tabs 11/29/22 12/14/22 Rx Jig Bore Tool Maker (famotidine)) fluticasone fur. 100 mcg-umeclid 1 inh inhalation QAM #60 ea 11/29/22 12/14/22 Rx 62.5 mcg-vilant 25 mcg inhalat.powder (Trelegy Ellipta) furosemide 40 mg tablet 40 mg PO QAM #90 tabs 11/29/22 12/14/22 Rx ipratropium 0.5 mg-albuterol 3 mg 3 ml inhalation Q6H PRN wheezing 11/30/22 12/14/22 Rx (2.5 mg base)/3 mL nebulization #180 mL soln potassium chloride 10 mEq 10 meq PO QAM #90 caps 12/07/22 12/14/22 Rx capsule,extended release biotin 10 mg tablet 10 mg PO DAILY 12/14/22 12/14/22 History Past Med/Surg History Medical History (Updated 12/14/22 @ 17:32 by Taqueria Butcher MD) Acid reflux Anemia hx Anxiety Bursitis of right hip CAD (coronary artery disease) MILD NONOCCLUSIVE PER 2015 CARDIAC CATH > no cardio Cervical disc disease Chronic obstructive pulmonary disease D.O.E Diastolic congestive heart failure Distal radius fracture, left Dyspnea on exertion History of COVID-19 end of march 2022, home test, admitted to [place]; loss taste, fatigue, brain fog, shortness of breath>put on 10L O2 continuously, no other symptoms currently History of tobacco abuse Hoarseness of voice HTN (hypertension) Hypercholesterolemia Hypoxemia Long COVID LPRD (laryngopharyngeal reflux disease) Obesity (BMI 30.0-34.9) Obstructive sleep apnea waiting on new CPAP On home oxygen therapy pt placed on continuous oxygen therapy following her Covid-19 dx. pt stated "she is on 10L oxygen while at home. 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 Elisa Solomon voice Restless legs syndrome Shortness of breath on exertion Sinus congestion Tinnitus Xerostomia Surgical History History of adenoidectomy History of cardiac cath (2015) 2015, [facility], no stents; f/u PCP History of cataract surgery bilat History of cervical spinal surgery ACDF History of cholecystectomy History of esophagogastroduodenoscopy (EGD) History of tonsillectomy History of tooth extraction History of total hip arthroplasty RIGHT Hx of colonoscopy Hx of tubal ligation S/P lumbar fusion S/P ORIF (open reduction internal fixation) fracture L wrist Status post wrist surgery R tendon repair Family History Brother KELLY (obstructive sleep apnea) Restless leg Paranoid Father , age 63 Kidney disease Diabetes Mother , age 89 Heart disease Hearing loss Hypertension Myocardial infarction Sister Restless leg Grandfather (Maternal) , age 43 Heart disease Myocardial infarction, Onset Age: 43 Grandmother (Paternal) Diabetes Stroke Grandfather (Paternal) Cancer Other No family history of adverse response to anesthesia No family history of bleeding disorder Denies family history of Ovarian cancer Prostate cancer Deep vein thrombosis Breast cancer Colorectal cancer Pulmonary embolism Social History Smoking Status: Former smoker Tobacco Type: Cigarettes Age Started Using Tobacco: 21; packs per day: 1; Second Hand Exposure: No; Do You Dip or Chew Tobacco: No; Hx Alcohol Use: No Hx Substance Use: No Preferred Language: Macanese Communication Ability: Effective Visual Impairment: No Limitations Hearing Ability: Normal Forest Resource Specialist Required: No Beliefs That Will Affect Care: None marital status: Current Living Situation: Spouse Current Living Situation Comment: lives in [place] current occupational status: retired 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 How many Children do You have: 2 Other Information That Helps Us Care for You: No Feels Safe at Home: Yes Childhood Exposure to Second-Hand Smoke: Yes Diet: regular Diet Comment: regular caffeine: Yes during the past year weight has: remained stable Dental Care, Regularly: Yes Physical Activity Frequency: 1-2 Times per Week Seatbelt Use: always Sunscreen Use: Yes Assistive Devices: Oxygen - Continuous Physical Exam Physical Exam: General: WD, chronically ill appearing female sitting up in bed, NAD HEENT: head normocephalic, atraumatic, trace JVD noted Resp: diminished in the bases with associated crackles, no w/r, on 3L NC CV: regular rate/rhtyhm, no obvious m/r/g, trace LE edema (in compression stockings), pulses palpable/calves nontender GI: +BS, soft/NT : no segura MSK/Neuro: no focal deficit/slurred speech, following commands Psych: AOx3, cooperative and pleasant Results & Data Results & Data Vital Signs (Past 12 Hours) Vital Signs Temp Pulse Resp BP Pulse Ox O2 Del Method O2 Flow Rate 12/14/22 10:15 97 Nasal Cannula 3 12/14/22 10:15 Nasal Cannula 3 12/14/22 10:23 98 Nasal Cannula, Nebulizer 3 12/14/22 10:15 37.2 C 67 21 129/71 97 Nasal Cannula 3 Laboratory Results 12/14/22 12/14/22 12/14/22 Range/Units 12:22 12:22 10:29 WBC (4.8-10.8) K/ul RBC (4.20-5.40) M/uL Hgb (12.0-16.0) g/dl Hct (37.0-47.0) % MCV (80.0-100.0) fL MCH (25.0-34.0) pg MCHC (32.0-36.0) g/dL RDW Std Deviation (36.4-46.3) fL RDW Coeff of Soraida (11.5-14.5) % Plt Count (130-400) K/uL MPV (9.4-12.4) fL Immature Gran % (Auto) % Neut % (Auto) % Lymph % (Auto) % [place] % (Auto) % Eos % (Auto) % Baso % (Auto) % Neut # (Auto) (1.40-6.50) K/uL Lymph # (Auto) (1.2-3.4) K/uL [place] # (Auto) (0.11-0.59) K/uL Eos # (Auto) (0-0.50) K/uL Baso # (Auto) (0-0.2) K/uL Immature Gran # (Auto) (0.01-0.20) K/uL PT (9.0-12.0) Seconds INR (0.9-1.1) APTT (21.0-31.0) Seconds PTT Ratio Sodium (136-145) mmol/L Potassium (3.5-5.1) mmol/L Chloride (98-107) mmol/L Carbon Dioxide (21-32) mmol/L Anion Gap (3-11) BUN (6-23) mg/dl Creatinine (0.6-1.2) mg/dl Est Cr Clr Drug Dosing ml/min Est GFR ( Amer) ml/min Est GFR (Non-Af Amer) ml/min BUN/Creatinine Ratio (10-20) Glucose (70-99(Fasting)) mg/dl Calcium (8.6-10.3) mg/dl Magnesium (1.7-2.4) mg/dl Total Bilirubin (0.2-1.0) mg/dl AST (13-39) U/L ALT (7-52) U/L Alkaline Phosphatase (34-104) U/L Troponin I High Sens (0-14) pg/ml B-Natriuretic Peptide Pending Total Protein (6.0-8.3) gm/dl Albumin (3.4-5.0) gm/dl Globulin (2.5-4.0) gm/dl Albumin/Globulin Ratio (0.9-2) Lipase (11-82) U/L TSH (0.300-4.500) uIu/ml Free T4 (0.61-1.60) ng/dl Free T3 Pending SARS-CoV-2, RNA, NAAT NEGATIVE (NEGATIVE) 12/14/22 12/14/22 12/14/22 Range/Units 10:29 10:29 10:29 WBC (4.8-10.8) K/ul RBC (4.20-5.40) M/uL Hgb (12.0-16.0) g/dl Hct (37.0-47.0) % MCV (80.0-100.0) fL MCH (25.0-34.0) pg MCHC (32.0-36.0) g/dL RDW Std Deviation (36.4-46.3) fL RDW Coeff of Soraida (11.5-14.5) % Plt Count (130-400) K/uL MPV (9.4-12.4) fL Immature Gran % (Auto) % Neut % (Auto) % Lymph % (Auto) % [place] % (Auto) % Eos % (Auto) % Baso % (Auto) % Neut # (Auto) (1.40-6.50) K/uL Lymph # (Auto) (1.2-3.4) K/uL [place] # (Auto) (0.11-0.59) K/uL Eos # (Auto) (0-0.50) K/uL Baso # (Auto) (0-0.2) K/uL Immature Gran # (Auto) (0.01-0.20) K/uL PT 10.6 (9.0-12.0) Seconds INR 1.0 (0.9-1.1) APTT 20.5 L (21.0-31.0) Seconds PTT Ratio 0.7 Sodium 137 (136-145) mmol/L Potassium 3.9 (3.5-5.1) mmol/L Chloride 101 (98-107) mmol/L Carbon Dioxide 28 (21-32) mmol/L Anion Gap 8 (3-11) BUN 14 (6-23) mg/dl Creatinine 1.10 (0.6-1.2) mg/dl Est Cr Clr Drug Dosing 50.9 ml/min Est GFR ( Amer) 56.9 ml/min Est GFR (Non-Af Amer) 49.1 ml/min BUN/Creatinine Ratio 12.7 (10-20) Glucose 102 H (70-99(Fasting)) mg/dl Calcium 9.0 (8.6-10.3) mg/dl Magnesium 2.1 (1.7-2.4) mg/dl Total Bilirubin 1.0 (0.2-1.0) mg/dl AST 20 (13-39) U/L ALT 16 (7-52) U/L Alkaline Phosphatase 112 H (34-104) U/L Troponin I High Sens 5.9 (0-14) pg/ml B-Natriuretic Peptide Total Protein 7.5 (6.0-8.3) gm/dl Albumin 4.2 (3.4-5.0) gm/dl Globulin 3.3 (2.5-4.0) gm/dl Albumin/Globulin Ratio 1.3 (0.9-2) Lipase 47 (11-82) U/L TSH 5.289 H (0.300-4.500) uIu/ml Free T4 1.25 (0.61-1.60) ng/dl Free T3 SARS-CoV-2, RNA, NAAT (NEGATIVE) 12/14/22 Range/Units 10:29 WBC 10.61 (4.8-10.8) K/ul RBC 3.89 L (4.20-5.40) M/uL Hgb 12.3 (12.0-16.0) g/dl Hct 37.5 (37.0-47.0) % MCV 96.4 (80.0-100.0) fL MCH 31.6 (25.0-34.0) pg MCHC 32.8 (32.0-36.0) g/dL RDW Std Deviation 51.2 H (36.4-46.3) fL RDW Coeff of Soraida 14.5 (11.5-14.5) % Plt Count 294 (130-400) K/uL MPV 9.8 (9.4-12.4) fL Immature Gran % (Auto) 0.3 % Neut % (Auto) 67.0 % Lymph % (Auto) 20.5 % [place] % (Auto) 10.3 % Eos % (Auto) 1.6 % Baso % (Auto) 0.3 % Neut # (Auto) 7.11 H (1.40-6.50) K/uL Lymph # (Auto) 2.18 (1.2-3.4) K/uL [place] # (Auto) 1.09 H (0.11-0.59) K/uL Eos # (Auto) 0.17 (0-0.50) K/uL Baso # (Auto) 0.03 (0-0.2) K/uL Immature Gran # (Auto) 0.03 (0.01-0.20) K/uL PT (9.0-12.0) Seconds INR (0.9-1.1) APTT (21.0-31.0) Seconds PTT Ratio Sodium (136-145) mmol/L Potassium (3.5-5.1) mmol/L Chloride (98-107) mmol/L Carbon Dioxide (21-32) mmol/L Anion Gap (3-11) BUN (6-23) mg/dl Creatinine (0.6-1.2) mg/dl Est Cr Clr Drug Dosing ml/min Est GFR ( Amer) ml/min Est GFR (Non-Af Amer) ml/min BUN/Creatinine Ratio (10-20) Glucose (70-99(Fasting)) mg/dl Calcium (8.6-10.3) mg/dl Magnesium (1.7-2.4) mg/dl Total Bilirubin (0.2-1.0) mg/dl AST (13-39) U/L ALT (7-52) U/L Alkaline Phosphatase (34-104) U/L Troponin I High Sens (0-14) pg/ml B-Natriuretic Peptide Total Protein (6.0-8.3) gm/dl Albumin (3.4-5.0) gm/dl Globulin (2.5-4.0) gm/dl Albumin/Globulin Ratio (0.9-2) Lipase (11-82) U/L TSH (0.300-4.500) uIu/ml Free T4 (0.61-1.60) ng/dl Free T3 SARS-CoV-2, RNA, NAAT (NEGATIVE) Diagnostic Findings Chest X-Ray 12/14/22 10:23 SINGLE VIEW CHEST CLINICAL HISTORY: Atypical chest pain. FINDINGS: An AP, portable, upright chest radiograph is compared to chest x-ray and chest CT dated 06/18/2022. The heart is top normal in size noting atherosclerotic calcification of the thoracic aorta. Emphysema and chronic interstitial thickening is similar to previous. There is bibasilar scarring/ate lectasis. No airspace consolidation or large pleural effusion is identified. No pneumothorax is seen. The skeletal structures are osteopenic. The bony thorax is grossly intact. Fusion hardware is seen in the lower cervical spine. IMPRESSION: Emphysematous change with no acute cardiopulmonary abnormality. ACT 112: Negative or not required by law. Electronically signed by: Navin Pichardo M.D. 12/14/2022 10:47 AM ECG Additional Comments: EKG NSR 67bpm, low QRS but no obvious ST elevation/TWI. Notes possible old anterior infarct Supervising Physician Co-Signing Physician Notes I personally saw and examined the patient. I verified all merrill points and agree with Mercedez Hamm PA-C with the following exceptions and/or additions: 77 year old female presents with intermittent chest pains. Non-exertional. Central. No radiation. Currently chest pain free. O/E A&Ox3, HS RRR, no murmurs, Chest CTAB, Abdo SNT, 1+ b/l LE pitting edema A/P Atypical chest pain - agree with workup by cardiology with planned dobutamine stress echo tomorrow Acute HFpEF - increased weight gain and leg swelling, CXR and lung to auscultation clear ?more right sided. Agree with Lasix 40mg IV, ongoing dosing to be decided by providers tomorrow. PG Care Time/CCT Total # of Minutes Spent Total Time Spent with Patient: Total time spent is greater than 50% in coordination of care (as documented) at patient's floor/unit and/or counseling patient: Coding Level of Care Code 16974 INT INP/OBS CARE 3/75MIN Diagnoses Chest pain R07.9 CAD (coronary artery disease) I25.10 Chronic obstructive pulmonary disease J44.9 SVT (supraventricular tachycardia) I47.1 Diastolic congestive heart failure I50.30 Bursitis of right hip M70.71 Benign essential hypertension I10 Palpitations R00.2 Obstructive sleep apnea G47.33 Pulmonary emphysema J43.9 Emphysema type: unspecified Peripheral neuropathy G62.9 (10) Pulmonary emphysema Emphysema type: unspecified Qualified Code(s): J43.9 - Emphysema, unspecified
[2022-12-14] MEDS ORDERED: FUROSEMIDE 40 MG/4 ML VIAL IV ONE (14:27)
[2022-12-14] MEDS ORDERED: NITROGLYCERIN SL 0.4 MG/TAB TAB SL PRN (14:27)
[2022-12-14] MEDS ORDERED: ALBUTEROL HFA 8 GM INHALER INH PRN (14:27)
[2022-12-14] MEDS ORDERED: ACETAMINOPHEN 325 MG TAB PO PRN (14:27)
[2022-12-14] MEDS ORDERED: ALBUT/IPRATROP 3MG/0.5MG NEB 3 ML VIAL INH PRN (14:27)
[2022-12-14] MEDS ORDERED: MoRPHine SULFATE 2 MG/ML CARP IV PRN (14:27)
--- NOTE | 2022-12-14 14:43 | XCELERA ---
[id number]
[2022-12-14] MEDS ORDERED: PRAMIPEXOLE DIHYDROCHLO 0.25 MG TAB PO SCH ×2 (16:00→19:00)
--- NOTE | 2022-12-14 17:19 | Cardiology Consultation ---
Date of Consultation December 14, 2022 Assessment & Plan (1) Precordial chest pain: (2) CAD (coronary artery disease): (3) Exertional dyspnea: (4) Benign essential hypertension: (5) Hypercholesterolemia: Plan ASSESSMENT/PLAN: 1. Chest pain: High-sensitivity troponin and ECG are unremarkable. Echo unremarkable. Mild nonobstructive CAD in 2014. Plan for noninvasive ischemic evaluation tomorrow. Dobutamine stress echo. 2. Dyspnea on exertion: Chronic issue. Uses supplemental oxygen chronically for COPD/emphysema. She appears euvolemic. BNP 14. Dyspnea likely related to her documented pulmonary issues. Continue pulmonary rehab as per her mechatronics technician. 3. Hypertension: Blood pressure well controlled. No changes made at this time. 4. Dyslipidemia: Increase atorvastatin to 80 mg daily given most recent LDL above 70 in the setting of documented CAD. 5. CAD: Nonobstructive in 2014. Risk factor modification. Continue aspirin 81 mg daily, high intensity statin therapy. Consider low-dose beta-khurram. 6. Disposition: Cardiology will continue to follow. On discharge, follow with [facility] petrophysicist, Dr. Tomas. Patient care communicated with primary hospitalist, Mercedez Hamm. 57 minute visit, including [id number] time, counseling patient, coordinating care, discussing with her primary petrophysicist, reviewing multiple records as outlined above. Time also includes documentation. Thank you for allowing me to participate in the care of your patient. Please call for any other questions or concerns. Sincerely, Braulio Butcher M.D. History of Present Illness Reason for Consultation: Chest pain Requesting Physician: Mercedez Hamm Attending Physician: Cristiano Rodriguez MD History of Present Illness Mrs. Garcia is a pleasant 77-year-old female with a history significant for nonobstructive CAD, hypertension, dyslipidemia, COPD/emphysema on supplemental oxygen (3 L), sleep apnea on CPAP nightly. Her primary petrophysicist is Dr. Tomas. She has had the following studies/procedures: 1. Nuclear stress 08/05/2014: Anteroseptal and anterior defect worse in rest images. 2. Cardiac cath 11/05/2014 (Dr. Falcon): OM mid 20%. Ostial RCA 40%. PCWP 10. PA 24/12 with a mean of 18. Radial artery angiography demonstrated accessory radial artery which was small in caliber. Procedure was completed via femoral artery. 3. Event monitor 09/06/2022 to 10/05/2022: Sinus. Frequent PACs and PVCs. 4. Echo 12/14/2022: Normal LV size, wall motion, systolic function. EF 65 to 70%. Moderate LVH. No significant valvular abnormalities. Normal RVSP. She presented and was admitted on 12/14/2022 for chest discomfort. She recalls having similar symptoms in 2021. She described the chest discomfort as a substernal heaviness/crushing pain. She had an episode 1 week ago while sitting and took a nitroglycerin from her and chest pain resolved within minutes. She had another episode this morning at approximately 8:15 AM just after walking to her car. Once again symptoms resolved after a few minutes of nitroglycerin. She apparently also developed nausea with some dry heaving and felt hot. Her states that for approximately 1 minute or so she did not make much sense when trying to communicate. These other symptoms occurred after she took nitroglycerin. She had a split second or so of left shoulder pain while having chest pain but denies worsening shortness of breath or diaphoresis during the episode. On presentation, the ECG did not demonstrate significant ST/T wave abnormalities. Her initial high-sensitivity troponin was negative. She has had edema ever since COVID-19 infection in April 2022. She has had orthopnea since the same time and reduced short-term memory. She attends pulmonary rehab and follows with pulmonology for her pulmonary issues. She has had palpitations during exercise at rehab in the past and underwent event monitor as noted above. Records were reviewed from 2013 when she was seen by Dr. Falcon in cardiology office. She had dyspnea and underwent myocardial perfusion study followed by cardiac catheterization. Her filling pressures were reported as normal and she had nonobstructive CAD. She is currently chest pain-free and has family at the bedside. Review of systems: As above. Review of systems otherwise negative/unremarkable. Family history: Father had OH in his 60s and then again in his 80s. Social history: Smoked 1 pack/day for 40 to 50 years but quit several years ago. Denies alcohol or drug abuse. Lives at home with her . She has 2 sons and 6 grandchildren. Her Payam and son Alessandro were present at the bedside. Allergies Allergy/AdvReac Type Severity Reaction Status Date / Time karen nair AdvReac Intermediate WATERY Verified 12/14/22 14:12 ITCHY EYES, NOSE Home Medications Medication Instructions Recorded Confirmed Type fluoxetine 20 mg capsule 20 mg PO QAM #90 caps 02/16/22 12/14/22 Rx albuterol sulfate 90 mcg/actuation 2 puff inhalation Q4H PRN 04/09/22 12/14/22 Rx aerosol inhaler cough/wheeze/shortness of breath #8.5 grams amlodipine 5 mg tablet (Norvasc) 5 mg PO QAM #90 tabs 05/17/22 12/14/22 Rx Oxygen Home #1 ea 05/28/22 12/14/22 Rx pramipexole 0.25 mg tablet 0.25 - 0.5 mg PO UD 06/18/22 12/14/22 History Portable Oxygen #1 ea 06/24/22 12/14/22 Rx omeprazole 40 mg capsule,delayed 40 mg PO QAM #90 caps 06/28/22 12/14/22 Rx release alendronate 70 mg tablet (Fosamax) 70 mg PO Q7D 08/26/22 12/14/22 History magnesium 500 mg tablet 500 mg PO QAM 08/26/22 12/14/22 History rivaroxaban 10 mg tablet (Xarelto) 10 mg PO QAM 08/26/22 12/14/22 History gabapentin 100 mg capsule 200 mg PO BID 90 days #360 caps 11/15/22 12/14/22 Rx atorvastatin 40 mg tablet 40 mg PO QAM #90 tabs 11/29/22 12/14/22 Rx cyanocobalamin (vitamin B-12) 1,000 mcg PO QAM #90 caps 11/29/22 12/14/22 Rx 1,000 mcg capsule famotidine 20 mg tablet (Acid 20 mg PO HS #90 tabs 11/29/22 12/14/22 Rx Wafer Abrading Machine Tender (famotidine)) fluticasone fur. 100 mcg-umeclid 1 inh inhalation QAM #60 ea 11/29/22 12/14/22 Rx 62.5 mcg-vilant 25 mcg inhalat.powder (Trelegy Ellipta) furosemide 40 mg tablet 40 mg PO QAM #90 tabs 11/29/22 12/14/22 Rx ipratropium 0.5 mg-albuterol 3 mg 3 ml inhalation Q6H PRN wheezing 11/30/22 12/14/22 Rx (2.5 mg base)/3 mL nebulization #180 mL soln potassium chloride 10 mEq 10 meq PO QAM #90 caps 12/07/22 12/14/22 Rx capsule,extended release biotin 10 mg tablet 10 mg PO DAILY 12/14/22 12/14/22 History Patient History Medical History (Updated 12/14/22 @ 17:32 by Taqueria Butcher MD) Acid reflux Anemia hx Anxiety Bursitis of right hip CAD (coronary artery disease) MILD NONOCCLUSIVE PER 2015 CARDIAC CATH > no cardio Cervical disc disease Chronic obstructive pulmonary disease D.O.E Diastolic congestive heart failure Distal radius fracture, left Dyspnea on exertion History of COVID-19 end of march 2022, home test, admitted to [place]; loss taste, fatigue, brain fog, shortness of breath>put on 10L O2 continuously, no other symptoms currently History of tobacco abuse Hoarseness of voice HTN (hypertension) Hypercholesterolemia Hypoxemia Long COVID LPRD (laryngopharyngeal reflux disease) Obesity (BMI 30.0-34.9) Obstructive sleep apnea waiting on new CPAP On home oxygen therapy pt placed on continuous oxygen therapy following her Covid-19 dx. pt stated "she is on 10L oxygen while at home. 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 Elisa Solomon voice Restless legs syndrome Shortness of breath on exertion Sinus congestion Tinnitus Xerostomia Surgical History History of adenoidectomy History of cardiac cath (2014) 2014, [facility], no stents; f/u PCP History of cataract surgery bilat History of cervical spinal surgery ACDF History of cholecystectomy History of esophagogastroduodenoscopy (EGD) History of tonsillectomy History of tooth extraction History of total hip arthroplasty RIGHT Hx of colonoscopy Hx of tubal ligation S/P lumbar fusion S/P ORIF (open reduction internal fixation) fracture L wrist Status post wrist surgery R tendon repair Family History Brother KELLY (obstructive sleep apnea) Restless leg Paranoid Father , age 63 Kidney disease Diabetes Mother , age 89 Heart disease Hearing loss Hypertension Myocardial infarction Sister Restless leg Grandfather (Maternal) , age 43 Heart disease Myocardial infarction, Onset Age: 43 Grandmother (Paternal) Diabetes Stroke Grandfather (Paternal) Cancer Other No family history of adverse response to anesthesia No family history of bleeding disorder Denies family history of Ovarian cancer Prostate cancer Deep vein thrombosis Breast cancer Colorectal cancer Pulmonary embolism Social History Smoking Status: Former smoker Tobacco Type: Cigarettes Age Started Using Tobacco: 21; packs per day: 1; Second Hand Exposure: No; Do You Dip or Chew Tobacco: No; Hx Alcohol Use: No Hx Substance Use: No Preferred Language: Turkmen Communication Ability: Effective Visual Impairment: No Limitations Hearing Ability: Normal Plumbing Technician Required: No Beliefs That Will Affect Care: None marital status: Current Living Situation: Spouse Current Living Situation Comment: lives in [place] current occupational status: retired 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 Alert and oriented. HEENT: Anicteric sclera. Neck: No JVD. No bruits. Normal carotid upstrokes bilaterally. Cardiac: No ventricular heave. Regular. Normal S1-S2. No murmurs, rubs, or gallops. Pulmonary: Clear to auscultation bilaterally without wheezes, rales, or rhonchi. Abdomen: Soft, nontender, nondistended, with normoactive bowel sounds. No bruits noted. Extremities: 2+ radial pulses bilaterally. 2+ posterior tibialis pulses bilaterally. Trace lateral lower extremity edema. No cyanosis. Psychiatric: Affect appears appropriate. Chest: Nontender. Results & Data Vital Signs (Past 12 Hours) Vital Signs Temp Pulse Pulse Resp BP BP Pulse Ox 12/14/22 15:28 36.4 C L 60 18 132/73 94 12/14/22 14:43 12/14/22 14:21 36.6 C 90 18 117/62 90 12/14/22 13:55 75 18 96 12/14/22 13:46 74 16 118/74 96 12/14/22 12:55 71 12/14/22 10:15 97 12/14/22 10:15 12/14/22 10:23 98 12/14/22 10:15 37.2 C 67 21 129/71 97 O2 Del Method O2 Flow Rate 12/14/22 15:28 Nasal Cannula 3 12/14/22 14:43 Nasal Cannula 3 12/14/22 14:21 Nasal Cannula 3 12/14/22 13:55 Nasal Cannula 3 12/14/22 13:46 Room Air 12/14/22 12:55 12/14/22 10:15 Nasal Cannula 3 12/14/22 10:15 Nasal Cannula 3 12/14/22 10:23 Nasal Cannula, Nebulizer 3 12/14/22 10:15 Nasal Cannula 3 Laboratory Results Laboratory Results - last 24 hr 12/14/22 12/14/22 12/14/22 10:29 10:29 10:29 WBC 10.61 RBC 3.89 L Hgb 12.3 Hct 37.5 MCV 96.4 MCH 31.6 MCHC 32.8 RDW Std Deviation 51.2 H RDW Coeff of Soraida 14.5 Plt Count 294 MPV 9.8 Immature Gran % (Auto) 0.3 Neut % (Auto) 67.0 Lymph % (Auto) 20.5 [place] % (Auto) 10.3 Eos % (Auto) 1.6 Baso % (Auto) 0.3 Neut # (Auto) 7.11 H Lymph # (Auto) 2.18 [place] # (Auto) 1.09 H Eos # (Auto) 0.17 Baso # (Auto) 0.03 Immature Gran # (Auto) 0.03 PT 10.6 INR 1.0 APTT 20.5 L PTT Ratio 0.7 Sodium 137 Potassium 3.9 Chloride 101 Carbon Dioxide 28 Anion Gap 8 BUN 14 Creatinine 1.10 Est Cr Clr Drug Dosing 50.9 Est GFR ( Amer) 56.9 Est GFR (Non-Af Amer) 49.1 BUN/Creatinine Ratio 12.7 Glucose 102 H Calcium 9.0 Magnesium 2.1 Total Bilirubin 1.0 AST 20 ALT 16 Alkaline Phosphatase 112 H Troponin I High Sens 5.9 B-Natriuretic Peptide Total Protein 7.5 Albumin 4.2 Globulin 3.3 Albumin/Globulin Ratio 1.3 Lipase 47 TSH Free T4 Free T3 SARS-CoV-2, RNA, NAAT 12/14/22 12/14/22 12/14/22 10:29 10:29 12:22 WBC RBC Hgb Hct MCV MCH MCHC RDW Std Deviation RDW Coeff of Sora[place] Plt Count MPV Immature Gran % (Auto) Neut % (Auto) Lymph % (Auto) [place] % (Auto) Eos % (Auto) Baso % (Auto) Neut # (Auto) Lymph # (Auto) [place] # (Auto) Eos # (Auto) Baso # (Auto) Immature Gran # (Auto) PT INR APTT PTT Ratio Sodium Potassium Chloride Carbon Dioxide Anion Gap BUN Creatinine Est Cr Clr Drug Dosing Est GFR ( Amer) Est GFR (Non-Af Amer) BUN/Creatinine Ratio Glucose Calcium Magnesium Total Bilirubin AST ALT Alkaline Phosphatase Troponin I High Sens B-Natriuretic Peptide 14 Total Protein Albumin Globulin Albumin/Globulin Ratio Lipase TSH 5.289 H Free T4 1.25 Free T3 SARS-CoV-2, RNA, NAAT NEGATIVE 12/14/22 12/14/22 12:22 15:56 WBC RBC Hgb Hct MCV MCH MCHC RDW Std Deviation RDW Coeff of Soraida Plt Count MPV Immature Gran % (Auto) Neut % (Auto) Lymph % (Auto) [place] % (Auto) Eos % (Auto) Baso % (Auto) Neut # (Auto) Lymph # (Auto) [place] # (Auto) Eos # (Auto) Baso # (Auto) Immature Gran # (Auto) PT INR APTT PTT Ratio Sodium Potassium Chloride Carbon Dioxide Anion Gap BUN Creatinine Est Cr Clr Drug Dosing Est GFR ( Amer) Est GFR (Non-Af Amer) BUN/Creatinine Ratio Glucose Calcium Magnesium Total Bilirubin AST ALT Alkaline Phosphatase Troponin I High Sens 5.9 B-Natriuretic Peptide Total Protein Albumin Globulin Albumin/Globulin Ratio Lipase TSH Free T4 Free T3 4.17 SARS-CoV-2, RNA, NAAT Diagnostic Findings Telemetry personally reviewed: Sinus rhythm. No arrhythmia. Echo reports and cardiac catheterization report reviewed as noted above in HPI. Labs reviewed and notable for normal renal function and normal high-sensitivity troponin levels. Normal BNP. ECG personally reviewed 12/14/2022: NSR 67 bpm. History and physical report reviewed. Chest x-ray 12/14/2022: Emphysematous change with no acute cardiopulmonary abnormality per radiology. Personal review demonstrated no infiltrate or significant pleural effusion. Medications Administered Current Inpatient Medications Acetaminophen (Acetaminophen 325 Mg Tab) 650 mg PO Q4H PRN PRN Reason: Pain or Fever Stop: 01/13/23 14:26 Albuterol (Albuterol Hfa 8 Gm Inhaler) 2 puffs INH Q4H PRN PRN Reason: cough/wheeze/shortness of breath Stop: 01/13/23 14:26 Albuterol (Albut/Ipratrop 3mg/0.5mg Neb 3 Ml Vial) 3 ml INH Q6H PRN; Protocol PRN Reason: wheezing Stop: 01/13/23 14:26 Aspirin (Aspirin 81 Mg Ectab) 81 mg PO QAM ALEJANDRO Stop: 01/14/23 08:59 Atorvastatin Calcium (Atorvastatin 40 Mg Tab) 40 mg PO QAM ALEJANDRO Stop: 01/14/23 08:59 Cyanocobalamin (Cyanocobalamin (B-12) 500 Mcg Tablet) 1,000 mcg PO QAM ALEJANDRO Stop: 01/14/23 08:59 Famotidine (Famotidine 20 Mg Tab) 20 mg PO HS ALEJANDRO Stop: 01/13/23 20:59 Fluoxetine HCl (Fluoxetine Hcl 20 Mg Cap) 20 mg PO QAM ALEJANDRO Stop: 01/14/23 08:59 Fluticasone Furoate (Fluticasone Furoate 100mcg 14 Puffs/Inhaler) 1 puffs INH DAILY ALEJANDRO Stop: 01/14/23 08:59 Gabapentin (Gabapentin 100 Mg Cap) 200 mg PO BID ALEJANDRO Stop: 01/13/23 20:59 Guaifenesin (Guaifenesin 600 Mg Tabcr) 600 mg PO Q12 [facility] Stop: 01/13/23 20:59 Magnesium Oxide (Magnesium Oxide 400 Mg Tab) 400 mg PO QAM [facility] Stop: 01/14/23 08:59 Morphine Sulfate (Morphine Sulfate 2 Mg/Ml Carp) 2 mg IV Q30M PRN PRN Reason: Chest Pain Stop: 12/28/22 14:26 Nitroglycerin (Nitroglycerin Sl 0.4 Mg/Tab Tab) 0.4 mg SL UD PRN PRN Reason: Chest Pain Stop: 01/13/23 14:26 Pantoprazole Sodium (Pantoprazole 40 Mg Tab) 40 mg PO QAM [facility] Stop: 01/14/23 08:59 Potassium Chloride (Potassium Chloride 10 Meq Tabcr) 10 meq PO QAM [facility] Stop: 01/14/23 08:59 Pramipexole Dihydrochloride (Pramipexole Dihydrochlo 0.25 Mg Tab) 0.25 mg PO DAILY@1600 [facility] Stop: 01/13/23 15:59 Last Admin: 12/14/22 16:02 Dose: 0.25 mg Pramipexole Dihydrochloride (Pramipexole Dihydrochlo 0.25 Mg Tab) 0.5 mg PO DAILY@1900 [facility] Stop: 01/13/23 18:59 Rivaroxaban (Rivaroxaban 10 Mg Tablet) 10 mg PO QAM [facility] Stop: 01/14/23 08:59 Umeclidinium/Vilanterol (Umeclidinium/Vilanterol 62.5/25mcg 7 Puffs/Inhaler) 1 puffs INH DAILY [facility] Stop: 01/14/23 08:59 PG Care Time/CCT Total # of Minutes Spent Total Time Spent with Patient: Total time spent is greater than 50% in coordination of care (as documented) at patient's floor/unit and/or counseling patient: Coding Level of Care Code 74483 INT INP/OBS CARE 2/55MIN Diagnoses Precordial chest pain R07.2 CAD (coronary artery disease) I25.10 Exertional dyspnea R06.09 Benign essential hypertension I10 Hypercholesterolemia E78.00 Time Spent (min) 57
[2022-12-14] MEDS ORDERED: FAMOTIDINE 20 MG TAB PO SCH (21:00)
[2022-12-14] MEDS: GABAPENTIN 100 MG CAP PO SCH (21:00)
[2022-12-14] MEDS: guaiFENesin 600 MG TABCR PO SCH (21:00)
[2022-12-14] MEDS ORDERED: SODIUM CHLORIDE 0.65% NA SOLN 45 ML (OCEAN) PRN (22:50)
--- NOTE | 2022-12-15 06:01 | Electrocardiogram Report ---
Test Reason : Blood Pressure : / mmHG Vent. Rate : 067 BPM Atrial Rate : 067 BPM P-R Int : 176 ms QRS Dur : 086 ms QT Int : 422 ms P-R-T Axes : 045 -02 046 degrees QTc Int : 445 ms Normal sinus rhythm Low voltage QRS Cannot rule out Anterior infarct , age undetermined Abnormal ECG When compared with ECG of 18-JUN-2022 15:05, No significant change was found Confirmed by Taqueria Butcher ([id number]) on 12/15/2022 6:01:10 AM Referred By: Confirmed By:Taqueria Butcher
[2022-12-15 08:01] LABS: Hematocrit (blood only) 34.4 % (37.0-47.0); Hemoglobin 11.5 g/dl (12.0-16.0); Mean Corpuscular Hgb Conc 33.4 g/dL (32.0-36.0); Mean Corpuscular Volume 92.7 fL (80.0-100.0); Platelet Count 275 K/uL (130-400); RDW Coefficient of Variation 14.3 % (11.5-14.5); RDW Standard Deviation 48.3 fL (36.4-46.3); Red Blood Count 3.71 M/uL (4.20-5.40); White Blood Count 8.59 K/ul (4.8-10.8)
[2022-12-15 08:11] LABS: BUN Creatinine Ratio 16.2 (10-20); Calcium 8.1 mg/dl (8.6-10.3); Chol HDL Ratio 3.9 (0-5); Creatinine Clr Calc Pharmacy 53.1 ml/min; Est GFR (African American) 60.2 ml/min; Est GFR (Non-African American) 51.9 ml/min; Magnesium 2.1 mg/dl (1.7-2.4); Potassium 3.9 mmol/L (3.5-5.1)
[2022-12-15 08:31] LABS: Ferritin 138.3 ng/ml (8-388)
[2022-12-15] MEDS ORDERED: FLUoxetine HCL 20 MG CAP PO SCH (09:00)
[2022-12-15] MEDS ORDERED: NON-FORMULARY MEDICATION (Fluticasone-Umeclidin-Vilanter [Trelegy Ellipta] 100-62.5-25 mcg INH SCH (09:00)
[2022-12-15] MEDS ORDERED: RIVAROXABAN 10 MG TABLET PO SCH (09:00)
[2022-12-15] MEDS ORDERED: FUROSEMIDE 40 MG TAB PO SCH (09:00)
[2022-12-15] MEDS ORDERED: ATORVASTATIN 40 MG TAB PO SCH ×2 (09:00)
[2022-12-15] MEDS ORDERED: PANTOprazole 40 MG TAB PO SCH (09:00)
[2022-12-15] MEDS ORDERED: MAGNESIUM OXIDE 400 MG TAB PO SCH (09:00)
[2022-12-15] MEDS ORDERED: UMECLIDINIUM/VILANTEROL 62.5/25MCG 7 PUFFS/INHALER INH SCH (09:00)
[2022-12-15] MEDS ORDERED: CYANOCOBALAMIN (B-12) 500 MCG TABLET PO SCH (09:00)
[2022-12-15] MEDS ORDERED: FLUTICASONE FUROATE 100MCG 14 PUFFS/INHALER INH SCH (09:00)
[2022-12-15] MEDS ORDERED: POTASSIUM CHLORIDE 10 MEQ TABCR PO SCH (09:00)
[2022-12-15] MEDS ORDERED: ASPIRIN 81 MG ECTAB PO SCH (09:00)
[2022-12-15] MEDS ORDERED: METOPROLOL TARTRATE 1 MG/ML VIAL IV ONE (09:26)
[2022-12-15] MEDS ORDERED: DOBUTamine HCL 12.5 MG/ML 20 ML VIAL IV ONE (09:26)
[2022-12-15] MEDS ORDERED: ATROPINE SULFATE 0.1 MG/ML 10ML SYR IV ONE (09:26)
[2022-12-15 10:01] LABS: Estimated Average Glucose 126 mg/dl
[2022-12-15] MEDS: guaiFENesin 600 MG TABCR PO SCH (10:35)
[2022-12-15] MEDS: GABAPENTIN 100 MG CAP PO SCH (10:35)
--- NOTE | 2022-12-15 10:39 | Cardiology Progress Note ---
Date of Service December 15, 2022 Assessment & Plan (1) Precordial chest pain: (2) CAD (coronary artery disease): (3) Exertional dyspnea: (4) Benign essential hypertension: (5) Hypercholesterolemia: Plan ASSESSMENT/PLAN: 1. Chest pain: Atypical chest pain. Unremarkable dobutamine stress echo. High-sensitivity troponin and ECG are unremarkable. Echo unremarkable. Mild nonobstructive CAD in 2015. No plans for invasive ischemic evaluation at this time. Consider noncardiac chest pain. Medically managed previously documented nonobstructive CAD. 2. Dyspnea on exertion: Chronic issue. Uses supplemental oxygen chronically for COPD/emphysema. She appears euvolemic. BNP 14. Dyspnea likely related to her documented pulmonary issues. Continue pulmonary rehab as per her bacteriology research assistant. 3. Hypertension: Blood pressure well controlled. Amlodipine was discontinued by primary service. Initiate beta-khurram given history of CAD. 4. Dyslipidemia: Increased atorvastatin to 80 mg daily given most recent LDL above 70 in the setting of documented CAD. 5. CAD: Nonobstructive in 2014. Risk factor modification. Continue aspirin 81 mg daily, high intensity statin therapy. Initiating low-dose khurram today. 6. Disposition: Can be discharged from a cardiac standpoint. Defer further evaluation for atypical chest pain to primary service. Continue to follow-up with primary program writer, Dr. Tomas, as an outpatient. Patient care communicated with primary hospitalist, Dr. Ojeda. Admission and Anticipated Discharge Date Admission Date: December 14, 2022 Subjective She has not had any further chest pain. She had dobutamine stress echo this morning which was negative for ischemia. There was no chest pain during the stress. She denies shortness of breath, orthopnea, palpitations, syncope, or near syncope. Review of systems: As above. Physical Exam Physical Exam: Gen.: No acute distress. Alert. HEENT: Anicteric sclera. Neck: No JVD. Cardiac: No ventricular heave. Regular. Normal S1-S2. No murmurs, rubs, or gallops. Pulmonary: Clear to auscultation bilaterally without wheezes, rales, or rhonchi. Abdomen: Soft, nontender, nondistended, with normoactive bowel sounds. No bruits noted. Extremities: 2+ radial pulses bilaterally. 2+ posterior tibialis pulses bilaterally. No edema. No cyanosis. Psychiatric: Affect appears appropriate. Results & Data Vital Signs (Past 12 Hours) Vital Signs Temp Pulse Pulse Resp BP Pulse Ox O2 Del Method 12/15/22 07:49 36.7 C 68 18 130/76 93 Nasal Cannula 12/15/22 07:47 67 12/15/22 04:00 36.6 C 70 18 118/73 95 Nasal Cannula 12/14/22 23:32 36.6 C 69 18 115/68 96 Nasal Cannula O2 Flow Rate 12/15/22 07:49 3 12/15/22 07:47 12/15/22 04:00 3 12/14/22 23:32 3 Intake & Output 12/13/22 12/14/22 12/15/22 12/16/22 06:59 06:59 06:59 06:59 Intake Total 240 / 240 Balance 240 / 240 Weight 196 lb 10.437 oz Laboratory Results Laboratory Results - last 24 hr 12/14/22 12/14/22 12/14/22 10:29 10:29 10:29 WBC 10.61 RBC 3.89 L Hgb 12.3 Hct 37.5 MCV 96.4 MCH 31.6 MCHC 32.8 RDW Std Deviation 51.2 H RDW Coeff of Soraida 14.5 Plt Count 294 MPV 9.8 Immature Gran % (Auto) 0.3 Neut % (Auto) 67.0 Lymph % (Auto) 20.5 [place] % (Auto) 10.3 Eos % (Auto) 1.6 Baso % (Auto) 0.3 Neut # (Auto) 7.11 H Lymph # (Auto) 2.18 [place] # (Auto) 1.09 H Eos # (Auto) 0.17 Baso # (Auto) 0.03 Immature Gran # (Auto) 0.03 PT 10.6 INR 1.0 APTT 20.5 L PTT Ratio 0.7 Sodium 137 Potassium 3.9 Chloride 101 Carbon Dioxide 28 Anion Gap 8 BUN 14 Creatinine 1.10 Est Cr Clr Drug Dosing 50.9 Est GFR ( Amer) 56.9 Est GFR (Non-Af Amer) 49.1 BUN/Creatinine Ratio 12.7 Glucose 102 H Estimat Average Glucose Hemoglobin A1c Calcium 9.0 Magnesium 2.1 Iron Ferritin Total Bilirubin 1.0 AST 20 ALT 16 Alkaline Phosphatase 112 H Troponin I High Sens 5.9 B-Natriuretic Peptide Total Protein 7.5 Albumin 4.2 Globulin 3.3 Albumin/Globulin Ratio 1.3 Triglycerides Cholesterol LDL Cholesterol, Calc VLDL Cholesterol, Calc HDL Cholesterol Cholesterol/HDL Ratio Lipase 47 Vitamin B12 TSH Free T4 Free T3 SARS-CoV-2, RNA, NAAT 12/14/22 12/14/22 12/14/22 10:29 10:29 12:22 WBC RBC Hgb Hct MCV MCH MCHC RDW Std Deviation RDW Coeff of [place] Plt Count MPV Immature Gran % (Auto) Neut % (Auto) Lymph % (Auto) [place] % (Auto) Eos % (Auto) Baso % (Auto) Neut # (Auto) Lymph # (Auto) [place] # (Auto) Eos # (Auto) Baso # (Auto) Immature Gran # (Auto) PT INR APTT PTT Ratio Sodium Potassium Chloride Carbon Dioxide Anion Gap BUN Creatinine Est Cr Clr Drug Dosing Est GFR ( Amer) Est GFR (Non-Af Amer) BUN/Creatinine Ratio Glucose Estimat Average Glucose Hemoglobin A1c Calcium Magnesium Iron Ferritin Total Bilirubin AST ALT Alkaline Phosphatase Troponin I High Sens B-Natriuretic Peptide 14 Total Protein Albumin Globulin Albumin/Globulin Ratio Triglycerides Cholesterol LDL Cholesterol, Calc VLDL Cholesterol, Calc HDL Cholesterol Cholesterol/HDL Ratio Lipase Vitamin B12 TSH 5.289 H Free T4 1.25 Free T3 SARS-CoV-2, RNA, NAAT NEGATIVE 12/14/22 12/14/22 12/14/22 12:22 15:56 22:40 WBC RBC Hgb Hct MCV MCH MCHC RDW Std Deviation RDW Coeff of [place] Plt Count MPV Immature Gran % (Auto) Neut % (Auto) Lymph % (Auto) [place] % (Auto) Eos % (Auto) Baso % (Auto) Neut # (Auto) Lymph # (Auto) [place] # (Auto) Eos # (Auto) Baso # (Auto) Immature Gran # (Auto) PT INR APTT PTT Ratio Sodium Potassium Chloride Carbon Dioxide Anion Gap BUN Creatinine Est Cr Clr Drug Dosing Est GFR ( Amer) Est GFR (Non-Af Amer) BUN/Creatinine Ratio Glucose Estimat Average Glucose Hemoglobin A1c Calcium Magnesium Iron Ferritin Total Bilirubin AST ALT Alkaline Phosphatase Troponin I High Sens 5.9 6.1 B-Natriuretic Peptide Total Protein Albumin Globulin Albumin/Globulin Ratio Triglycerides Cholesterol LDL Cholesterol, Calc VLDL Cholesterol, Calc HDL Cholesterol Cholesterol/HDL Ratio Lipase Vitamin B12 TSH Free T4 Free T3 4.17 SARS-CoV-2, RNA, NAAT 12/15/22 12/15/22 12/15/22 06:59 06:59 06:59 WBC 8.59 RBC 3.71 L Hgb 11.5 L Hct 34.4 L MCV 92.7 MCH 31.0 MCHC 33.4 RDW Std Deviation 48.3 H RDW Coeff of S[place] 14.3 Plt Count 275 MPV 10.0 Immature Gran % (Auto) Neut % (Auto) Lymph % (Auto) [place] % (Auto) Eos % (Auto) Baso % (Auto) Neut # (Auto) Lymph # (Auto) [place] # (Auto) Eos # (Auto) Baso # (Auto) Immature Gran # (Auto) PT INR APTT PTT Ratio Sodium 137 Potassium 3.9 Chloride 102 Carbon Dioxide 28 Anion Gap 7 BUN 17 Creatinine 1.05 Est Cr Clr Drug Dosing 53.1 Est GFR ( Amer) 60.2 Est GFR (Non-Af Amer) 51.9 BUN/Creatinine Ratio 16.2 Glucose 103 H Estimat Average Glucose 126 Hemoglobin A1c 6.0 H Calcium 8.1 L Magnesium 2.1 Iron 46 Ferritin 138.3 Total Bilirubin AST ALT Alkaline Phosphatase Troponin I High Sens B-Natriuretic Peptide Total Protein Albumin Globulin Albumin/Globulin Ratio Triglycerides 99 Cholesterol 144 LDL Cholesterol, Calc 87 VLDL Cholesterol, Calc 20 HDL Cholesterol 37 Cholesterol/HDL Ratio 3.9 Lipase Vitamin B12 TSH Free T4 Free T3 SARS-CoV-2, RNA, NAAT 12/15/22 06:59 WBC RBC Hgb Hct MCV MCH MCHC RDW Std Deviation RDW Coeff of [place] Plt Count MPV Immature Gran % (Auto) Neut % (Auto) Lymph % (Auto) [place] % (Auto) Eos % (Auto) Baso % (Auto) Neut # (Auto) Lymph # (Auto) [place] # (Auto) Eos # (Auto) Baso # (Auto) Immature Gran # (Auto) PT INR APTT PTT Ratio Sodium Potassium Chloride Carbon Dioxide Anion Gap BUN Creatinine Est Cr Clr Drug Dosing Est GFR ( Amer) Est GFR (Non-Af Amer) BUN/Creatinine Ratio Glucose Estimat Average Glucose Hemoglobin A1c Calcium Magnesium Iron Ferritin Total Bilirubin AST ALT Alkaline Phosphatase Troponin I High Sens B-Natriuretic Peptide Total Protein Albumin Globulin Albumin/Globulin Ratio Triglycerides Cholesterol LDL Cholesterol, Calc VLDL Cholesterol, Calc HDL Cholesterol Cholesterol/HDL Ratio Lipase Vitamin B12 1309 H TSH Free T4 Free T3 SARS-CoV-2, RNA, NAAT Diagnostic Findings Preliminary dobutamine stress echo: Negative for ischemia. ECG personally reviewed 12/16/2019: Sinus rhythm 66 bpm. Medications Administered Current Inpatient Medications Acetaminophen (Acetaminophen 325 Mg Tab) 650 mg PO Q4H PRN PRN Reason: Pain or Fever Stop: 01/13/23 14:26 Albuterol (Albuterol Hfa 8 Gm Inhaler) 2 puffs INH Q4H PRN PRN Reason: cough/wheeze/shortness of breath Stop: 01/13/23 14:26 Albuterol (Albut/Ipratrop 3mg/0.5mg Neb 3 Ml Vial) 3 ml INH Q6H PRN; Protocol PRN Reason: wheezing Stop: 01/13/23 14:26 Aspirin (Aspirin 81 Mg Ectab) 81 mg PO QAM [facility] Stop: 01/14/23 08:59 Atorvastatin Calcium (Atorvastatin 40 Mg Tab) 80 mg PO QAM [facility] Stop: 01/14/23 08:59 Cyanocobalamin (Cyanocobalamin (B-12) 500 Mcg Tablet) 1,000 mcg PO QAM [facility] Stop: 01/14/23 08:59 Famotidine (Famotidine 20 Mg Tab) 20 mg PO HS [facility] Stop: 01/13/23 20:59 Last Admin: 12/14/22 21:00 Dose: 20 mg Fluoxetine HCl (Fluoxetine Hcl 20 Mg Cap) 20 mg PO QAM [facility] Stop: 01/14/23 08:59 Fluticasone Furoate (Fluticasone Furoate 100mcg 14 Puffs/Inhaler) 1 puffs INH DAILY [facility] Stop: 01/14/23 08:59 Furosemide (Furosemide 40 Mg Tab) 40 mg PO QAM [facility] Stop: 01/14/23 08:59 Gabapentin (Gabapentin 100 Mg Cap) 200 mg PO BID [facility] Stop: 01/13/23 20:59 Last Admin: 12/14/22 21:00 Dose: 200 mg Guaifenesin (Guaifenesin 600 Mg Tabcr) 600 mg PO Q12 [facility] Stop: 01/13/23 20:59 Last Admin: 12/14/22 21:00 Dose: 600 mg Magnesium Oxide (Magnesium Oxide 400 Mg Tab) 400 mg PO QAM [facility] Stop: 01/14/23 08:59 Morphine Sulfate (Morphine Sulfate 2 Mg/Ml Carp) 2 mg IV Q30M PRN PRN Reason: Chest Pain Stop: 12/28/22 14:26 Nitroglycerin (Nitroglycerin Sl 0.4 Mg/Tab Tab) 0.4 mg SL UD PRN PRN Reason: Chest Pain Stop: 01/13/23 14:26 Pantoprazole Sodium (Pantoprazole 40 Mg Tab) 40 mg PO QAM [facility] Stop: 01/14/23 08:59 Potassium Chloride (Potassium Chloride 10 Meq Tabcr) 10 meq PO QAM [facility] Stop: 01/14/23 08:59 Pramipexole Dihydrochloride (Pramipexole Dihydrochlo 0.25 Mg Tab) 0.25 mg PO DAILY@1600 [facility] Stop: 01/13/23 15:59 Last Admin: 12/14/22 16:02 Dose: 0.25 mg Pramipexole Dihydrochloride (Pramipexole Dihydrochlo 0.25 Mg Tab) 0.5 mg PO DAILY@1900 [facility] Stop: 01/13/23 18:59 Last Admin: 12/14/22 20:59 Dose: 0.5 mg Rivaroxaban (Rivaroxaban 10 Mg Tablet) [facility] [place] Stop: 01/14/23 08:59 Sodium Chloride (Sodium Chloride 0.65% Na Soln 45 Ml ([place]ckling)) 2 sprays NA PRN PRN PRN Reason: Nasal Congestion Stop: 01/13/23 22:49 Last Admin: 12/14/22 23:13 Dose: 2 sprays Umeclidinium/Vilanterol (Umeclidinium/Vilanterol 62.5/25mcg 7 Puffs/Inhaler) 1 puffs INH DAILY [facility] Stop: 01/14/23 08:59 PG Care Time/CCT Total # of Minutes Spent Total Time Spent with Patient: Total time spent is greater than 50% in coordination of care (as documented) at patient's floor/unit and/or counseling patient: Coding Level of Care Code 98849 SUB INP/OBS CARE 2/35MIN Diagnoses Precordial chest pain R07.2 CAD (coronary artery disease) I25.10 Exertional dyspnea R06.09 Benign essential hypertension I10 Hypercholesterolemia E78.00
[2022-12-15] MEDS ORDERED: METOPROLOL SUCC 25MG EXT REL TAB PO SCH (10:45)
--- NOTE | 2022-12-15 12:43 | Discharge Summary ---
Discharge Summary Date of Service December 15, 2022 Notes For Next Care Provider Medications added: Aspirin 81 mg daily, metoprolol 25 mg daily, atorvastatin increased to 80 mg daily Follow-up with cardiology and PCP, no evidence of ACS this admission Admission HPI Per Admitting Provider 77yo female with PMHx significant for COPD (baseline 3L since, 2nd long COVID infection March 2022, follows pulm Dr Pérez), suspected diastolic heart failure Admission May 2022 w/ lasix started at 20mg daily and increased to 40mg daily and was weaned to RA at rest but required 4L w/ ambulation and was set up with pulmonary rehab at discharge. Has seen cardiology 08/25 with increased palpitations reported and was set up with cardiac event monitor which showed "frequent SVT and ventricular ectopy without any high risk arrhythmias. Interestingly, she only had 6 exertionally associated sinus tachycardia triggering any symptoms" and does not feel her ectopy per their note. Noted amlodipine suspected to precipitate LE edema and lasix seeming to alleviate that fairly well. CXR reportedly negative for acute finding but notes emphysematous change. Is on xarelto 10mg daily for thrombophlebitis of left cephalic vein, noted on imaging 06/30/22. She was having some chest pain yesterday (reportedly feeling like pressure) relieved with her 's nitroglycerin and then had another episode this morning at around 8am for a couple of seconds at rest today which she took an additional nitroglycerin for with relief but had some nausea/dry heaves and her wanted her to come to the ER. Given 4 baby aspirin by EMS and is currently chest pain free. She notes this does feel similar to her episode in May/June. She is unable to sleep in bed due to SOB symptoms and sleeps in recliner. Notes steroid use over winter for shoulder pain, increased weight gain and LE swelling which they thought was from amlodipine she notes. She notes no chest pain at present or radiation of chest pain with prior episode s. Discussed obtaining BNP level/ECHO and likely will give dose now and monitor response while ruling out cardiac cause. No recent fevers/chills. No abdominal pain. Admission Exam Per Admitting Provider General: WD, chronically ill appearing female sitting up in bed, NAD HEENT: head normocephalic, atraumatic, trace JVD noted Resp: diminished in the bases with associated crackles, no w/r, on 3L NC CV: regular rate/rhtyhm, no obvious m/r/g, trace LE edema (in compression stockings), pulses palpable/calves nontender GI: +BS, soft/NT : no sgeura MSK/Neuro: no focal deficit/slurred speech, following commands Psych: AOx3, cooperative and pleasant Principal Dx & Hospital Course #1 = Principal Diagnosis (1) Chest pain: Presented with chest pressure relieved with her 's nitroglycerin with some associated nausea. Chest pain-free on arrival to the ER. EKG, dobutamine stress test, troponins negative for ACS. Differential does include pulmonary embolism, however patient is anticoagulated on Xarelto and did not have increase in oxygen demand from her baseline. Chest x-ray noted emphysematous changes but no other acute cardiopulmonary abnormalities. Cardiology consulted and appreciate recommendations: Follows with Dr. Tomas, and will have follow-up with him in the near future. Metoprolol succinate 25 mg daily (also with recent event monitor showing SVT) and baby aspirin added to patient's regimen. Given recent LDL greater than 70, did increase patient's atorvastatin to 80 mg daily. (2) CAD (coronary artery disease): See above (3) Chronic obstructive pulmonary disease: Continue home inhalers, home supplemental oxygen 3 L nasal cannula at baseline. (4) SVT (supraventricular tachycardia): Metoprolol as above. (5) Diastolic congestive heart failure: History of, no evidence this admission of CHF exacerbation. Last echocardiogram with EF 60-65% with grade 1 diastolic dysfunction. Can continue home furosemide daily with follow-up with cardiology. (6) Benign essential hypertension: History of, continue amlodipine, with added metoprolol succinate per cardiology as above, with monitoring of BP by PCP/cardiology. (7) Obstructive sleep apnea: CPAP HS. (8) Pulmonary emphysema: Noted, o2 to maintain sats. (9) Peripheral neuropathy: Continue pramipexole. B12 1300 this admission. Discharge Exam Constitutional WD/WN, vitals as above Respiratory normal respiratory effort, lungs clear to auscultation Cardiovascular Heart rate irregularly irregular, no murmurs, no peripheral edema Psychiatric A+Ox3, euthymic affect Updated Medication List Medication Instructions Recorded Confirmed Type fluoxetine 20 mg capsule 20 mg PO QAM #90 caps 02/16/22 12/14/22 Rx albuterol sulfate 90 mcg/actuation 2 puff inhalation Q4H PRN 04/09/22 12/14/22 Rx aerosol inhaler cough/wheeze/shortness of breath #8.5 grams amlodipine 5 mg tablet (Norvasc) 5 mg PO QAM #90 tabs 05/17/22 12/14/22 Rx Oxygen Home #1 ea 05/28/22 12/14/22 Rx pramipexole 0.25 mg tablet 0.25 - 0.5 mg PO UD 06/18/22 12/14/22 History Portable Oxygen #1 ea 06/24/22 12/14/22 Rx omeprazole 40 mg capsule,delayed 40 mg PO QAM #90 caps 06/28/22 12/14/22 Rx release alendronate 70 mg tablet (Fosamax) 70 mg PO Q7D 08/26/22 12/14/22 History magnesium 500 mg tablet 500 mg PO QAM 08/26/22 12/14/22 History rivaroxaban 10 mg tablet (Xarelto) 10 mg PO QAM 08/26/22 12/14/22 History gabapentin 100 mg capsule 200 mg PO BID 90 days #360 caps 11/15/22 12/14/22 Rx cyanocobalamin (vitamin B-12) 1,000 mcg PO QAM #90 caps 11/29/22 12/14/22 Rx 1,000 mcg capsule famotidine 20 mg tablet (Acid 20 mg PO HS #90 tabs 11/29/22 12/14/22 Rx Brass Pickler (famotidine)) fluticasone fur. 100 mcg-umeclid 1 inh inhalation QAM #60 ea 11/29/22 12/14/22 Rx 62.5 mcg-vilant 25 mcg inhalat.powder (Trelegy Ellipta) furosemide 40 mg tablet 40 mg PO QAM #90 tabs 11/29/22 12/14/22 Rx ipratropium 0.5 mg-albuterol 3 mg 3 ml inhalation Q6H PRN wheezing 11/30/22 12/14/22 Rx (2.5 mg base)/3 mL nebulization #180 mL soln potassium chloride 10 mEq 10 meq PO QAM #90 caps 12/07/22 12/14/22 Rx capsule,extended release biotin 10 mg tablet 10 mg PO DAILY 12/14/22 12/14/22 History aspirin 81 mg tablet,delayed 81 mg PO QAM #0 tabs 12/15/22 Rx release atorvastatin 40 mg tablet 80 mg PO QAM 30 days #60 tabs 12/15/22 Rx metoprolol succinate 25 mg 25 mg PO QAM 30 days #30 tabs 12/15/22 Rx tablet,extended release 24 hr Hospital Stay Data Consultations 12/14/22 12:13 ED Decision to Admit Stat 12/14/22 14:27 Consult Cardiology Routine Pending Results Patient Have Any Pending Studies at Discharge: No Discharge Instructions Given to Patient (Per Discharging Provider) You were admitted to the hospital for evaluation and management of chest pain. Fortunately, you had labwork and heart studies that did not show evidence of a heart attack. You had some medications changed by the [facility] Cardiology team, which will be sent to Dr. Tomas (you were seen by one of his partners). Please see the medication changes below. These were sent to [facility] in [place]. Baby aspirin is available over the counter, please take one 91 milligram tablet daily. If you have questions, please call the heart doctor office. If worsening symptoms, or concern for your health or safety, please seek urgent medical attention. Total Time Total Time Spent Total Time Spent (In Minutes): 40 minutes Coding Level of Care Code 31768 INP/OBS DISCH >30 MIN Diagnoses Chest pain R07.9 CAD (coronary artery disease) I25.10 Chronic obstructive pulmonary disease J44.9 SVT (supraventricular tachycardia) I47.1 Diastolic congestive heart failure I50.30 Benign essential hypertension I10 Obstructive sleep apnea G47.33 Pulmonary emphysema J43.9 Emphysema type: unspecified Peripheral neuropathy G62.9
--- NOTE | 2022-12-15 15:17 | XCELERA ---
[id number]
--- NOTE | 2022-12-16 05:25 | Electrocardiogram Report ---
Test Reason : Blood Pressure : / mmHG Vent. Rate : 066 BPM Atrial Rate : 066 BPM P-R Int : 188 ms QRS Dur : 086 ms QT Int : 430 ms P-R-T Axes : 054 002 047 degrees QTc Int : 450 ms Normal sinus rhythm Low voltage QRS Borderline ECG When compared with ECG of 14-DEC-2022 10:16, No significant change was found Confirmed by Taqueria Butcher ([id number]) on 12/16/2022 5:24:57 AM Referred By: REFERRED SELF Confirmed By:Taqueria Butcher
== END 2022-12-15 14:00 | disposition home or self-care (01) ==
LOC: ED 10:10 → 2W 10:10 → SUATTDRO 12:55 → 2W 13:55

== ENCOUNTER 2024-11-06 12:55 | Observation (INO) ==
--- NOTE | 2024-11-06 13:10 | Emergency Department Note ---
Impression & Plan Influenza A, Hypoxia, COPD (chronic obstructive pulmonary disease) ED Provider Note NAME: NANNETTE JI AGE: 78 SEX: F : 1945 ARRIVES VIA: Ambulance INFORMANT: Patient, ED PROVIDER(S): John Paul Solorio DO CHIEF COMPLAINT: Shortness of breath HPI: The patient is a 78-year-old female who presented to the emergency department for an evaluation of difficulty breathing. The patient's had several days of difficulty breathing. She complains of cough. She describes no leg swelling or leg pain. She complains of no abdominal pain. The patient states that she went to see her family doctor today while she was there she was found to have hypoxia. She was sent directly to the emergency department by ambulance for further evaluation. The patient was treated with a DuoNeb prior to arrival. ROS: See above HPI for pertinent positives & negatives. A total of 10 systems reviewed and were otherwise negative. PAST MEDICAL HISTORY: See Below PAST SURGICAL HISTORY: See Below FAMILY HISTORY: See Below SOCIAL HISTORY: See Below HOME MEDICATIONS: See Below ALLERGIES: See Below VITALS: See Below PHYSICAL EXAMINATION: GENERAL: Patient is awake alert in no acute distress patient is resting comfortably and showing no signs of anxiety EYES: The conjunctivae are clear. The pupils are round and reactive. EARS, NOSE, MOUTH AND THROAT: The nose is without any evidence of any deformity. NECK: The neck is nontender and supple. RESPIRATORY: Diminished breath sounds are noted throughout. There is faint rhonchi noted throughout. There is mild conversational dyspnea. CARDIOVASCULAR: Regular rate and rhythm noted there no murmurs rubs or gallops normal S1 normal S2. GASTROINTESTINAL: The abdomen is soft. Abdomen is nontender. MUSCULOSKELETAL/EXTREMITIES: There is no evidence of gross deformity full range of motion is noted in the hips and shoulders. SKIN: There is no obvious evidence of any rash. There are no petechiae, pallor or cyanosis noted. NEUROLOGIC: Patient is awake alert and oriented x3 MEDICAL DECISION MAKING: The patient is a 78-year-old female who presented to the emergency department for an evaluation of difficulty breathing. The patient has been having cough and cold symptoms over the course of the last few days. Over the weekend she started having symptoms. She went to see her primary care physician today. She was found to be hypoxic. She was treated with a DuoNeb prior to arrival. On arrival she was somewhat improved. She does wear oxygen at home normally. She was placed on supplemental oxygen. She started to have oxygen desaturations. I discussed the patient's laboratory and radiographic studies with her. Given her hypoxia I discussed her condition with the on-call [facility] hospitalist. Triage Nursing notes reviewed. Prior medical records reviewed Vital Signs: reviewed and remarkable for hypoxia. Differential diagnosis: Reactive airway disease, pneumonia, pneumothorax, COPD, CHF, infections, cardiac ischemia, pulmonary embolism, musculoskeletal, gastrointestinal, as well as other pathologies. ER treatment provided: See below Diagnostics interpreted by me: ECG: EKG was obtained in the emergency department. My interpretation is normal sinus rhythm at 74 bpm. There is no ectopy. Poor R wave progression was noted. There is no acute ST segment. This was compared to a tracing from May 23, 2024. No changes were noted. Cardiac Monitoring: An order was placed for continuous cardiac monitoring. The monitor shows a rate of 73 bpm with sinus rhythm. Laboratory studies: As stated above and show below. Imaging studies: See below. Radiographic imaging was reviewed by myself Consultation(s): Dr. Neri who is on-call for the [facility] hospitalist group was notified. Past Med/Surg History Problem List (Updated 11/06/24 @ 15:28 by John Paul Solorio DO) COPD (chronic obstructive pulmonary disease) (Acute) Hypoxia (Acute) Influenza A (Acute) Chronic respiratory failure Restless leg syndrome Prediabetes Per records, Last HGBA1C 05/2023 6.3% Patient denies Peripheral neuropathy KELLY (obstructive sleep apnea) No longer uses CPAP- since continuous oxygen On home oxygen therapy 4 lpm continuous Neurogenic claudication due to lumbar spinal stenosis Neurostimulator device in situ [facility] 11/22/23, Dr De La Cruz Hypothyroidism Hypercholesteremia HTN (hypertension) H/O supraventricular tachycardia Remote hx, no known recurrence/recent issues Esophageal dysphagia "Controlled" Diastolic congestive heart failure Follows with Dr Tomas COPD (chronic obstructive pulmonary disease) CAD (coronary artery disease) 2014 cath: mild, non-occlusive Action tremor Left knee DJD Osteopenia Vitamin D deficiency Postlaminectomy syndrome of lumbar region Right knee DJD Chronic rhinitis B12 deficiency Xerostomia Lumbar radiculopathy Sensorineural hearing loss (SNHL) of both ears Restless legs syndrome Medical History Obesity (BMI 30.0-34.9) Hip bursitis, left Hx injection Pulmonary emphysema Follows with Dr. Pérez Anxiety Cervical disc disease Acquired deviated nasal septum Long COVID Placed on continuous oxygen therapy following Covid-19; currently on 4L continous oxygen Chronic rhinitis History of COVID-19 03/2022 (home test): admitted to [place]; loss taste, fatigue, brain fog, SOB > put on 3L O2 continuously, no other symptoms currently Tinnitus LPRD (laryngopharyngeal reflux disease) Surgical History History of total right hip arthroplasty History of back surgery Medtronic SCS placement (11/22/23): Grade 2 view, MAC#3, ETT 7.0 at [facility] S/P nasal septoplasty Septoplasty (01/18/23): Grade 2 view, Glidescope#3, ETT 7.0, attempted MAC with no visualization at [facility] History of esophagogastroduodenoscopy (EGD) Hx of colonoscopy Hx of tubal ligation S/P ORIF (open reduction internal fixation) fracture Left wrist S/P lumbar fusion History of cataract surgery R/L History of tooth extraction History of tonsillectomy History of adenoidectomy History of cervical spinal surgery ACDF Status post wrist surgery Right tendon repair History of cholecystectomy History of cardiac cath 2014- no stents Family History Brother KELLY (obstructive sleep apnea) Restless leg Paranoid Father , age 63 Kidney disease Diabetes Mother , age 89 Heart disease Hearing loss Hypertension Myocardial infarction Sister Restless leg Grandfather (Maternal) , age 43 Heart disease Myocardial infarction, Onset Age: 43 Grandmother (Paternal) Diabetes Stroke Grandfather (Paternal) Cancer Other No family history of adverse response to anesthesia No family history of bleeding disorder Denies family history of Ovarian cancer Prostate cancer Deep vein thrombosis Breast cancer Colorectal cancer Pulmonary embolism Social History Smoking Status: Former smoker Tobacco Type: Cigarettes Age Started Using Tobacco: 21; Age Quit Using Tobacco: 58; packs per day: 1; Second Hand Exposure: No; Do You Dip or Chew Tobacco: No; Hx Alcohol Use: No Hx Substance Use: No Preferred Language: [place] Communication Ability: Effective Visual Impairment: No Limitations Hearing Ability: Normal Manager [employer] Required: No Beliefs That Will Affect Care: None marital status: Current Living Situation: Spouse Current Living Situation Comment: lives in [place] current occupational status: retired 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 How many Children do You have: 2 Feels Safe at Home: Yes Childhood Exposure to Second-Hand Smoke: Yes Diet: regular Diet Comment: regular caffeine: Yes during the past year weight has: remained stable Dental Care, Regularly: Yes Physical Activity Frequency: 3-4 Times per Week Physical Activity Frequency Comment: Physical Therapy Seatbelt Use: always Sunscreen Use: Yes Assistive Devices: Denture - Lower, Nebulizer, Oxygen - Continuous, Scooter/Electric Scooter and Walker Allergies Allergies Allergy/AdvReac Type Severity Reaction Status Date / Time cat dander Allergy Intermediate Watery/itchy Verified 10/17/24 11:26 eyes No Known Drug Allergies Allergy Mild Verified 10/17/24 11:26 Home Meds Home Medications Medication Instructions Recorded Confirmed magnesium 500 mg tablet 500 mg PO QAM 08/26/22 11/06/24 biotin 10 mg tablet 10 mg PO QPM 12/14/22 11/06/24 atorvastatin 40 mg tablet 40 mg PO DAILY 06/18/24 11/06/24 Previous Rx's Medication Instructions Recorded Oxygen Home #1 ea 05/28/22 aspirin 81 mg tablet,delayed 81 mg PO QAM #0 tabs 12/15/22 release alendronate 70 mg tablet (Fosamax) 70 mg PO Q7D #12 tabs 07/28/23 cyanocobalamin (vitamin B-12) 1,000 mcg PO QAM #90 caps 08/26/23 1,000 mcg capsule gabapentin 100 mg capsule 200 mg (2 x 100 mg) PO BID 90 days 01/05/24 #360 caps albuterol sulfate 90 mcg/actuation 2 puff inhalation Q4H PRN 01/10/24 aerosol inhaler cough/wheeze/shortness of breath #8.5 grams ipratropium 0.5 mg-albuterol 3 mg 3 ml inhalation Q6H PRN wheezing 01/10/24 (2.5 mg base)/3 mL nebulization #180 mL soln Portable Oxygen #1 ea 01/31/24 furosemide 40 mg tablet 40 mg PO QAM #90 tabs 06/01/24 amlodipine 5 mg tablet (Norvasc) 5 mg PO QAM #90 tabs 07/11/24 fluoxetine 20 mg capsule 20 mg PO QAM #90 caps 07/11/24 cholecalciferol (vitamin D3) 25 25 mcg PO DAILY #30 caps 08/20/24 mcg (1,000 unit) capsule pramipexole 0.5 mg tablet 0.5 mg PO UD #270 tabs 08/27/24 metoprolol succinate 25 mg 25 mg PO QAM #90 tabs 10/03/24 tablet,extended release 24 hr Portable Oxygen #1 ea 10/17/24 famotidine 20 mg tablet (Acid 20 mg PO HS #90 tabs 10/22/24 Loftsman (famotidine)) fluticasone fur. 100 mcg-umeclid 1 inh inhalation QAM #1 inhaler 10/29/24 62.5 mcg-vilant 25 mcg inhalat.powder (Trelegy Ellipta) levothyroxine 75 mcg tablet 75 mcg PO QAM #90 tabs 11/01/24 potassium chloride 10 mEq 10 meq PO QAM #90 caps 11/01/24 capsule,extended release benzonatate 200 mg capsule 200 mg PO TID PRN cough #30 caps 11/06/24 prednisone 20 mg tablet See Rx Instructions .Route 11/06/24 .COMPLEX #21 tabs Results & Data (ED) Vital Signs Vital Signs - 24 hr 11/06/24 12:55 11/06/24 13:21 11/06/24 13:21 Temperature 37.6 C H Temperature Source Oral Pulse Rate 73 Respiratory Rate 18 Respiratory Effort / Characteristics Non-Labored Spontaneous SOB on Exertion Respiratory Depth Normal Respiratory Pattern Regular Blood Pressure 96/67 L Blood Pressure Mean 76 Blood Pressure Position Semi-fowlers Pulse Oximetry 95 Oxygen Delivery Method Nasal Cannula Nasal Cannula Nasal Cannula Oxygen Flow Rate 4 4 4 Sepsis Recent Fever Within 48 Hours Yes Sepsis New/Unexplained Change in Mental Status No Sepsis Action Taken by Nursing No Action Required 11/06/24 13:22 11/06/24 13:27 Temperature Temperature Source Pulse Rate 82 73 Respiratory Rate 18 Respiratory Effort / Characteristics Respiratory Depth Respiratory Pattern Blood Pressure Blood Pressure Mean Blood Pressure Position Pulse Oximetry 95 Oxygen Delivery Method Nasal Cannula Oxygen Flow Rate 3 Sepsis Recent Fever Within 48 Hours Sepsis New/Unexplained Change in Mental Status Sepsis Action Taken by Assisted Medications Current Medication List: was personally reviewed by me Laboratory Data Attestation: I reviewed the patient's lab results. 11/06/24 13:21 11/06/24 13:21 Lab Results 11/06/24 11/06/24 11/06/24 Range/Units 13:21 14:10 14:36 WBC 8.47 (4.8-10.8) K/ul RBC 3.67 L (4.20-5.40) M/uL Hgb 11.9 L (12.0-16.0) g/dl Hct 35.3 L (37.0-47.0) % MCV 96.2 (80.0-100.0) fL MCH 32.4 (25.0-34.0) pg MCHC 33.7 (32.0-36.0) g/dL RDW Std Deviation 50.4 H (36.4-46.3) fL RDW Coeff of Soraida 14.2 (11.5-14.5) % Plt Count 243 (130-400) K/uL MPV 9.4 (9.4-12.4) fL Immature Gran % (Auto) 0.4 % Neut % (Auto) 61.2 % Lymph % (Auto) 21.8 % Davis % (Auto) 15.3 % Eos % (Auto) 0.9 % Baso % (Auto) 0.4 % Neut # (Auto) 5.18 (1.40-6.50) K/uL Lymph # (Auto) 1.85 (1.20-3.40) K/uL Davis # (Auto) 1.30 H (0.11-0.59) K/uL Eos # (Auto) 0.08 (0.00-0.50) K/uL Baso # (Auto) 0.03 (0.00-0.20) K/uL Immature Gran # (Auto) 0.03 (0.01-0.20) K/uL PT 10.8 (9.0-12.0) Seconds INR 1.0 (0.9-1.1) APTT 23 (21-31) Seconds PTT Ratio 0.9 VBG pH 7.43 H (7.36-7.41) VBG pCO2 39 (38-50) mmHg VBG pO2 32 mmHg VBG HCO3 26 mmol/L VBG O2 Saturation < 60.0 % VBG Base Excess 1.5 mEq/L Sodium 134 L (136-145) mmol/L Potassium 3.5 (3.5-5.1) mmol/L Chloride 101 (98-107) mmol/L Carbon Dioxide 27 (21-32) mmol/L Anion Gap 6 (3-11) BUN 16 (6-23) mg/dl Creatinine 1.11 (0.6-1.2) mg/dl Est Cr Clr Drug Dosing 52.6 ml/min eGFR 51.51 BUN/Creatinine Ratio 14.4 (10-20) Glucose 95 (70-99(Fasting)) mg/dl Lactate 1.1 (0.4-2.0) mmol/L Calcium 8.9 (8.6-10.3) mg/dl Magnesium 2.0 (1.7-2.4) mg/dl Total Bilirubin 0.8 (0.2-1.0) mg/dl Direct Bilirubin 0.1 (0-0.2) mg/dl AST 29 (13-39) U/L ALT 19 (7-52) U/L Alkaline Phosphatase 82 (34-104) U/L Troponin I High Sens 8.6 (0-14) pg/ml Total Protein 7.4 (6.0-8.3) gm/dl Albumin 3.8 (3.4-5.0) gm/dl Procalcitonin 0.08 (0-0.5) ng/ml Urine Color Yellow Urine Appearance Clear (Clear) Urine pH 6.0 (4.5-7.5) Ur Specific [place] 1.020 (1.000-1.030) Urine Protein Negative (Negative) Urine Glucose (UA) Negative (Negative) Urine Ketones Negative (Negative) Urine Blood Negative (Negative) Urine Nitrite Negative (Negative) Urine Bilirubin Negative (Negative) Urine Urobilinogen Negative (Negative) Ur Leukocyte Esterase Negative (Negative) Nasal Influ A H1 2008 PCR DETECTED A (NotDetected) Adenovirus (PCR) Not Detected (NotDetected) B. pertussis DNA (PCR) Not Detected (NotDetected) B.parapertussis DNA PCR Not Detected (NotDetected) C. pneumoniae DNA (PCR) Not Detected (NotDetected) Coronavirus OC43 (PCR) Not Detected (NotDetected) Coronavirus HKU1 (PCR) Not Detected (NotDetected) Coronavirus 229E (PCR) Not Detected (NotDetected) SARS-CoV-2 (PCR) Not Detected (NotDetected) Coronavirus NL63 (PCR) Not Detected (NotDetected) Human Metapneumovir PCR Not Detected (NotDetected) Influenza Type B (PCR) Not Detected (NotDetected) M. pneumoniae (PCR) Not Detected (NotDetected) Parainfluenza 1 (PCR) Not Detected (NotDetected) Parainfluenza 2 (PCR) Not Detected (NotDetected) Parainfluenza 3 (PCR) Not Detected (NotDetected) Parainfluenza 4 (PCR) Not Detected (NotDetected) RSV (PCR) Not Detected (NotDetected) Entero/Rhino (PCR) Not Detected (NotDetected) Administered Medications Discontinued Medications Sodium Chloride (Nss) 500 mls @ 999 mls/hr IV .Q31M ONE Stop: 11/06/24 14:41 Last Admin: 11/06/24 14:35 Dose: 999 mls/hr Documented By: CEF Morphine Sulfate (Morphine Sulfate 4 Mg/Ml 1 Ml Carp\\Vial) 4 mg IV NOW STA Stop: 11/06/24 14:18 Last Admin: 11/06/24 14:34 Dose: 4 mg Documented By: CEF Ondansetron HCl (Ondansetron Inj 2 Mg/Ml 2 Ml Vial) 4 mg IV NOW STA Stop: 11/06/24 14:18 Last Admin: 11/06/24 14:32 Dose: 4 mg Documented By: CEF Imaging Data Attestation: I personally reviewed and interpreted this imaging study as follows: My Impression: 1 view chest x-ray was obtained in the emergency department. My interpretation is no free air or definite infiltrate, final report below. Radiologist's Impression: Chest X-Ray 11/06/24 13:06 XR chest 1V portable CLINICAL HISTORY: Sepsis COMPARISON STUDY: Chest CT June 11, 2024. Chest radiograph October 17, 2024. FINDINGS: There is no pneumothorax or pleural effusion. There is no consolidation. Pulmonary vascularity is normal. Cardiomediastinal silhouette is stable. Postoperative findings within the cervical spine are incidentally noted. IMPRESSION: No acute cardiopulmonary findings. No change in appearance of the chest. ACT 112: Negative or not required by law. Electronically signed by: Cresencio Meng M.D. 11/06/2024 1:53 PM Discharge Plan Visit Data Chief Complaint: Shortness of Breath/Dyspnea ED Provider: John Paul Solorio Discharge Problem: Influenza A, Hypoxia, COPD (chronic obstructive pulmonary disease) Patient Disposition: Being Evaluated by Hospitalist Forms Stand Alone Forms: My [facility] Prescriptions Prescriptions: No Action alendronate [Fosamax] 70 mg tablet 70 mg PO Q7D Qty: 12 4RF cyanocobalamin (vitamin B-12) 1,000 mcg capsule 1,000 mcg PO QAM Qty: 90 3RF gabapentin 100 mg capsule 200 mg PO BID 90 Days Qty: 360 3RF ipratropium-albuterol 0.5 mg-3 mg(2.5 mg base)/3 mL solution for nebulization 3 ml inhalation Q6H PRN (Reason: wheezing) Qty: 180 3RF albuterol sulfate 90 mcg/actuation HFA aerosol inhaler 2 puff inhalation Q4H PRN (Reason: cough/wheeze/shortness of breath) Qty: 8.5 5RF Rx Instructions: use with "spacer" device (DME) Portable Oxygen Misc See Rx Instructions .Route Qty: 1 0RF Rx Instructions: home oxygen concentrator with portablility 4LPM with exertion via n/c. NELA 99. furosemide 40 mg tablet 40 mg PO QAM Qty: 90 3RF amlodipine [Norvasc] 5 mg tablet 5 mg PO QAM Qty: 90 3RF fluoxetine 20 mg capsule 20 mg PO QAM Qty: 90 3RF cholecalciferol (vitamin D3) 25 mcg (1,000 unit) capsule 25 mcg PO DAILY Qty: 30 0RF pramipexole 0.5 mg tablet 0.5 mg PO UD Qty: 270 3RF Rx Instructions: take one tab at 4PM, then take one 2 tabs one hour prior to bedtime metoprolol succinate 25 mg tablet extended release 24 hr 25 mg PO QAM Qty: 90 1RF (DME) Portable Oxygen Misc See Rx Instructions .Route Qty: 1 0RF Rx Instructions: PORTABLE OXYGEN CONCENTRATOR; FOR USE VIA N/C AT 4L AT ALL TIMES famotidine [Acid Loftsman (famotidine)] 20 mg tablet 20 mg PO HS Qty: 90 3RF Trelegy Ellipta 100-62.5-25 mcg blister with device 1 inh inhalation QAM Qty: 1 3RF levothyroxine 75 mcg tablet 75 mcg PO QAM Qty: 90 1RF potassium chloride 10 mEq capsule, extended release 10 meq PO QAM Qty: 90 0RF prednisone 20 mg tablet See Rx Instructions .Route .COMPLEX Qty: 21 0RF Rx Instructions: Take 3 tabs PO daily x 3 days, take 2 tabs PO daily x 3 days, then 1 tab PO daily x 4 days, then 1/2 tab PO daily x 4 days ; benzonatate 200 mg capsule 200 mg PO TID PRN (Reason: cough) Qty: 30 0RF (DME) Oxygen Home Liters Per Minute See Rx Instructions .ROUTE .MEDSUPPLY Qty: 1 0RF Rx Instructions: 4 liters NC O2 with activity/ambulation. biotin 10 mg Tablet 10 mg PO QPM aspirin 81 mg Tablet,Delayed Release (Dr/Ec) 81 mg PO QAM Qty: 0 0RF magnesium 500 mg Tablet 500 mg PO QAM atorvastatin 40 mg tablet 40 mg PO DAILY Referrals Referrals: Patricia Olvera DO [Primary Care Provider] -
[2024-11-06 13:34] LABS: Base Excess VBG 1.5 mEq/L; HCO3 VBG 26 mmol/L; Oxygen Saturation VBG < 60.0 %; PCO2 VBG 39 mmHg (38-50); PO2 VBG 32 mmHg; pH VBG 7.43 (7.36-7.41)
[2024-11-06 13:45] LABS: Basophils # (auto) 0.03 K/uL (0.00-0.20); Basophils % (auto) 0.4 %; Eosinophils # (auto) 0.08 K/uL (0.00-0.50); Eosinophils % (auto) 0.9 %; Hematocrit (blood only) 35.3 % (37.0-47.0); Hemoglobin 11.9 g/dl (12.0-16.0); Immature Granulocytes # (auto) 0.03 K/uL (0.01-0.20); Immature Granulocytes % (auto) 0.4 %; Lymphocytes # (auto) 1.85 K/uL (1.20-3.40); Lymphocytes % (auto) 21.8 %; Mean Corpuscular Hemoglobin 32.4 pg (25.0-34.0); Mean Corpuscular Hgb Conc 33.7 g/dL (32.0-36.0); Mean Corpuscular Volume 96.2 fL (80.0-100.0); Mean Platelet Volume 9.4 fL (9.4-12.4); Monocytes % (auto) 15.3 %; Neutrophils # (auto) 5.18 K/uL (1.40-6.50); Neutrophils % (auto) 61.2 %; Platelet Count 243 K/uL (130-400); RDW Coefficient of Variation 14.2 % (11.5-14.5); RDW Standard Deviation 50.4 fL (36.4-46.3); Red Blood Count 3.67 M/uL (4.20-5.40); White Blood Count 8.47 K/ul (4.8-10.8)
--- NOTE | 2024-11-06 13:54 | XRay Report ---
XR chest 1V portable CLINICAL HISTORY: Sepsis COMPARISON STUDY: Chest CT June 11, 2024. Chest radiograph October 17, 2024. FINDINGS: There is no pneumothorax or pleural effusion. There is no consolidation. Pulmonary vascular ity is normal. Cardiomediastinal silhouette is stable. Postoperative findings within the cervical spi ne are incidentally noted. IMPRESSION: No acute cardiopulmonary findings. No change in appearance of the chest. ACT 112: Negative or not required by law. Electronically signed by: Cresencio Meng M.D. 11/06/2024 1:53 PM
[2024-11-06 14:07] LABS: Albumin Level 3.8 gm/dl (3.4-5.0); BUN Creatinine Ratio 14.4 (10-20); Bilirubin Direct 0.1 mg/dl (0-0.2); Bilirubin,Total 0.8 mg/dl (0.2-1.0); Calcium 8.9 mg/dl (8.6-10.3); Creatinine Clr Calc Pharmacy 52.6 ml/min; Potassium 3.5 mmol/L (3.5-5.1); Total Protein 7.4 gm/dl (6.0-8.3)
[2024-11-06 14:09] LABS: Partial Thromboplastin Ratio 0.9; Partial Thromboplastin Time 23 Seconds (21-31); Prothrombin Time 10.8 Seconds (9.0-12.0)
[2024-11-06 14:12] LABS: Troponin I High Sensitivity 8.6 pg/ml (0-14)
[2024-11-06] MEDS: ONDANSETRON INJ 2 MG/ML 2 ML VIAL IV STA (14:32)
[2024-11-06] MEDS: MoRPHine SULFATE 4 MG/ML 1 ML CARP\\VIAL IV STA (14:34)
[2024-11-06] MEDS: SODIUM CHLORIDE 0.9% 500 ML IV ONE ×2 (14:35→15:42)
[2024-11-06 14:47] LABS: Appearance Urine Clear (Clear); Bilirubin Urine Negative (Negative); Blood Urine Negative (Negative); Color Urine Yellow; Glucose Urine UA Negative (Negative); Ketones Urine Negative (Negative); Leukocyte Esterase Urine Negative (Negative); Nitrite Urine Negative (Negative); Protein Urine Negative (Negative); Urobilinogen Urine Negative (Negative)
[2024-11-06 15:16] LABS: Adenovirus PCR Not Detected (NotDetected); Bordetella parapertussis PCR Not Detected (NotDetected); Bordetella pertussis PCR Not Detected (NotDetected); Chlamydia pneumoniae PCR Not Detected (NotDetected); Coronavirus 229E PCR Not Detected (NotDetected); Coronavirus CoV-2 (COVID19)PCR Not Detected (NotDetected); Coronavirus HKU1 PCR Not Detected (NotDetected); Coronavirus NL63 PCR Not Detected (NotDetected); Coronavirus OC43PCR Not Detected (NotDetected); Human Metapneumovirus PCR Not Detected (NotDetected); Influenza A (H1 2009) PCR DETECTED (NotDetected); Influenza B PCR Not Detected (NotDetected); Mycoplasma pneumoniae PCR Not Detected (NotDetected); Parainfluenza Virus 1 PCR Not Detected (NotDetected); Parainfluenza Virus 2 PCR Not Detected (NotDetected); Parainfluenza Virus 3 PCR Not Detected (NotDetected); Parainfluenza Virus 4 PCR Not Detected (NotDetected); Respiratory Syncytial VirusPCR Not Detected (NotDetected); Rhinovirus/Enterovirus PCR Not Detected (NotDetected)
[2024-11-06] MEDS: dexAMETHasone**PF** 10 MG/ML VIAL IV ONE (15:39)
--- NOTE | 2024-11-06 15:41 | History & Physical Report ---
Date of Service November 06, 2024 Assessment & Plan (1) Influenza A: Plan: Influenza A Chest x-ray without evidence of superimposed pneumonia No leukocytosis or left shift. Antibiotics discontinued Dropped in low 80s on ambulation on 3-4L NC in the ER. due to worsened hypoxia recommended for inpatient management and observation Just completed a bedside breathing treatment at time of hospitalist evaluation. No wheezing however borderline O2 saturations 90-92% on 4 L and desats easily with conversation -Tamiflu twice daily COPD management as below Supportive care Acute COPD exacerbation due to viral illness Dexamethasone 10 mg given in the ER. Continued on methylprednisolone 40 mg IV twice daily, wean as clinically progressing Albuterol as needed, DuoNebs alternated every 4 hours as needed Home trilogy held while not on formulary. Continued on Breo/Spiriva Azithromycin 5-day course continued for COPD Titrate SpO2 to goal greater than 90% Patient does not use CPAP at home. If persistent nocturnal hypoxia/hypercapnia add an IV at that time Continue flutter valve, incentive spirometry CAD, history of SVT, benign essential hypertension Continue amlodipine, aspirin, atorvastatin, metoprolol No signs of acute ischemia - troponin is normal DSE 12/2022 negative, EF normal. Mild nonocclusive disease on cath 2014 - On lasix 40mg daily. No acute overload. Reports she does have a buildup of fluid in her legs or lungs, feels a little more short of breath but that her legs are normal. No pulmonary congestion on x-ray. Was borderline hypotensive, this resolved with oral fluids on reassessment and possible assessment. Will defer Lasix day of admission and resume home p.o. dosing 11/07. Hold if ELOISE or clinically volume contracted on exam. BUN/creatinine ratio is normal on admission Chronic stable issues: Anxiety/depression: Continue fluoxetine GERD: Continue famotidine at bedtime Osteoporosis: Bisphosphonate held while inpatient Restless legs: Pramipexole continue DVT prophylaxis: Lovenox Disposition: MSO CODE STATUS: Full code Diet: Heart healthy (2) Hypoxia: (3) COPD (chronic obstructive pulmonary disease): (4) KELLY (obstructive sleep apnea): (5) On home oxygen therapy: (6) Neurogenic claudication due to lumbar spinal stenosis: (7) COPD (chronic obstructive pulmonary disease): (8) CAD (coronary artery disease): History of Present Illness Primary Care Provider: Patricia Olvera DO Kathe is a 78-year-old female with a past medical history of COPD, chronic respiratory failure, KELLY, CAD who presents to the ER for evaluation of occultly breathing. Several days of cough and congestion, was referred to the ER by her PCP due to hypoxia. On ER evaluation she has no leukocytosis, no left shift, creatinine is at baseline, procalcitonin is normal, UA is negative, influenza H1 2009 PCR positive and BioFire otherwise negative. Chest x-ray shows no acute findings and no superimposed pneumonia. She received a dose of Rocephin while in the ER. She was recommended for monitoring of viral illness with hypotension, fever, and acute hypoxic respiratory failure. On attempted ambulatory trial on 3 L of nasal cannula (patient is prescribed home oxygen and is post be on around 3 L at home) that she rapidly desaturated into the 70s/80s. Subsequently referred for medical admission. Kathe is seen at the bedside just finishing a breathing treatment. She reports last month shes been 'a little wobbly' and more tired, but her breathing and fatigue is much worse in the last 3-4 days (since last Tuesday). +aches "terrible aching all over". No fevers, chills, sweats. Cough is nonprodcutive. Wheezing much more than normal. Has felt progressively worse since Tuesday. No double sickening. NO chest pain. No chest pressure. She did not take any medications this morning. Minimal to no sinus congestion. Takes lasix for fluid in her legs and lungs. Feels fluid-balance jeronimo she feels a little fluid up. Shortness of breath is worse when laying flat, and much worse on ambulation. Trace ankle edema, about normal for her. No worsening edema. Medical History: Reviewed Medications: Reviewed Surgical History: Reviewed Family history: Reviewed Allergies: Reviewed Social History: No tobacco use. No etoh use. Code Status: DNR/DNI Allergies Allergy/AdvReac Type Severity Reaction Status Date / Time cat dander Allergy Intermediate Watery/itchy Verified 10/17/24 11:26 eyes No Known Drug Allergies Allergy Mild Verified 10/17/24 11:26 Home Medications Medication Instructions Recorded Confirmed Type Oxygen Home #1 ea 05/28/22 11/06/24 Rx magnesium 500 mg tablet 500 mg PO QAM 08/26/22 11/06/24 History biotin 10 mg tablet 10 mg PO QPM 12/14/22 11/06/24 History aspirin 81 mg tablet,delayed 81 mg PO QAM #0 tabs 12/15/22 11/06/24 Rx release alendronate 70 mg tablet (Fosamax) 70 mg PO Q7D #12 tabs 07/28/23 11/06/24 Rx cyanocobalamin (vitamin B-12) 1,000 mcg PO QAM #90 caps 08/26/23 11/06/24 Rx 1,000 mcg capsule gabapentin 100 mg capsule 200 mg (2 x 100 mg) PO BID 90 days 01/05/24 11/06/24 Rx #360 caps albuterol sulfate 90 mcg/actuation 2 puff inhalation Q4H PRN 01/10/24 11/06/24 Rx aerosol inhaler cough/wheeze/shortness of breath #8.5 grams ipratropium 0.5 mg-albuterol 3 mg 3 ml inhalation Q6H PRN wheezing 01/10/24 11/06/24 Rx (2.5 mg base)/3 mL nebulization #180 mL soln Portable Oxygen #1 ea 01/31/24 11/06/24 Rx furosemide 40 mg tablet 40 mg PO QAM #90 tabs 06/01/24 11/06/24 Rx atorvastatin 40 mg tablet 40 mg PO QAM 06/18/24 11/06/24 History amlodipine 5 mg tablet (Norvasc) 5 mg PO QAM #90 tabs 07/11/24 11/06/24 Rx fluoxetine 20 mg capsule 20 mg PO QAM #90 caps 07/11/24 11/06/24 Rx cholecalciferol (vitamin D3) 25 25 mcg PO DAILY #30 caps 08/20/24 11/06/24 Rx mcg (1,000 unit) capsule pramipexole 0.5 mg tablet 0.5 mg PO UD #270 tabs 08/27/24 11/06/24 Rx metoprolol succinate 25 mg 25 mg PO QAM #90 tabs 10/03/24 11/06/24 Rx tablet,extended release 24 hr Portable Oxygen #1 ea 10/17/24 11/06/24 Rx famotidine 20 mg tablet (Acid 20 mg PO HS #90 tabs 10/22/24 11/06/24 Rx Dry Clipper Tender (famotidine)) fluticasone fur. 100 mcg-umeclid 1 inh inhalation QAM #1 inhaler 10/29/24 11/06/24 Rx 62.5 mcg-vilant 25 mcg inhalat.powder (Trelegy Ellipta) levothyroxine 75 mcg tablet 75 mcg PO QAM #90 tabs 11/01/24 11/06/24 Rx potassium chloride 10 mEq 10 meq PO QAM #90 caps 11/01/24 11/06/24 Rx capsule,extended release benzonatate 200 mg capsule 200 mg PO TID PRN cough #30 caps 11/06/24 11/06/24 Rx prednisone 20 mg tablet See Rx Instructions .Route 11/06/24 11/06/24 Rx .COMPLEX #21 tabs Past Med/Surg History Problem List (Updated 11/06/24 @ 15:28 by John Paul Solorio DO) COPD (chronic obstructive pulmonary disease) (Acute) Hypoxia (Acute) Influenza A (Acute) Chronic respiratory failure Restless leg syndrome Prediabetes Per records, Last HGBA1C 05/2023 6.3% Patient denies Peripheral neuropathy KELLY (obstructive sleep apnea) No longer uses CPAP- since continuous oxygen On home oxygen therapy 4 lpm continuous Neurogenic claudication due to lumbar spinal stenosis Neurostimulator device in situ [facility] 11/22/23, Dr De La Cruz Hypothyroidism Hypercholesteremia HTN (hypertension) H/O supraventricular tachycardia Remote hx, no known recurrence/recent issues Esophageal dysphagia "Controlled" Diastolic congestive heart failure Follows with Dr Tomas COPD (chronic obstructive pulmonary disease) CAD (coronary artery disease) 2014 cath: mild, non-occlusive Action tremor Left knee DJD Osteopenia Vitamin D deficiency Postlaminectomy syndrome of lumbar region Right knee DJD Chronic rhinitis B12 deficiency Xerostomia Lumbar radiculopathy Sensorineural hearing loss (SNHL) of both ears Restless legs syndrome Medical History Obesity (BMI 30.0-34.9) Hip bursitis, left Hx injection Pulmonary emphysema Follows with Dr. Pérez Anxiety Cervical disc disease Acquired deviated nasal septum Long COVID Placed on continuous oxygen therapy following Covid-19; currently on 4L continous oxygen Chronic rhinitis History of COVID-19 03/2022 (home test): admitted to [facility]; loss taste, fatigue, brain fog, SOB > put on 3L O2 continuously, no other symptoms currently Tinnitus LPRD (laryngopharyngeal reflux disease) Surgical History History of total right hip arthroplasty History of back surgery Medtronic SCS placement (11/22/23): Grade 2 view, MAC#3, ETT 7.[address] [facility] S/P nasal septoplasty Septoplasty (01/18/23): Grade 2 view, Glidescope#3, ETT 7.0, attempted MAC with no visualization at [facility] History of esophagogastroduodenoscopy (EGD) Hx of colonoscopy Hx of tubal ligation S/P ORIF (open reduction internal fixation) fracture Left wrist S/P lumbar fusion History of cataract surgery R/L History of tooth extraction History of tonsillectomy History of adenoidectomy History of cervical spinal surgery ACDF Status post wrist surgery Right tendon repair History of cholecystectomy History of cardiac cath 2014- no stents Family History Brother KELLY (obstructive sleep apnea) Restless leg Paranoid Father , age 63 Kidney disease Diabetes Mother , age 89 Heart disease Hearing loss Hypertension Myocardial infarction Sister Restless leg Grandfather (Maternal) , age 43 Heart disease Myocardial infarction, Onset Age: 43 Grandmother (Paternal) Diabetes Stroke Grandfather (Paternal) Cancer Other No family history of adverse response to anesthesia No family history of bleeding disorder Denies family history of Ovarian cancer Prostate cancer Deep vein thrombosis Breast cancer Colorectal cancer Pulmonary embolism Social History Smoking Status: Former smoker Tobacco Type: Cigarettes Age Started Using Tobacco: 21; Age Quit Using Tobacco: 58; packs per day: 1; Second Hand Exposure: No; Do You Dip or Chew Tobacco: No; Hx Alcohol Use: No Hx Substance Use: No Preferred Language: Swedish Communication Ability: Effective Visual Impairment: No Limitations Hearing Ability: Normal Paratransit Driver Required: No Beliefs That Will Affect Care: None marital status: Current Living Situation: Spouse Current Living Situation Comment: lives in [place] current occupational status: retired 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 NAD. Cooperative. HEENT: Atraumatic, normocephalic. Vision and hearing grossly intact Pulm: Just completed a nebulized breathing treatment at time of assessment. Borderline oxygen levels 90-93% on 4 L. No wheezing at time of bedside reevaluation Cardiac: RRR, -mrg. Radial pulses intact and symmetrical. No JVD Abdominal: Nontender, nondistended, soft. BS present. Extremities: Trace ankle edema Results & Data Results & Data Vital Signs (Past 12 Hours) Vital Signs Temp Pulse Resp BP Pulse Ox O2 Del Method O2 Flow Rate 11/06/24 13:27 73 18 95 Nasal Cannula 3 11/06/24 13:22 82 11/06/24 13:21 Nasal Cannula 4 11/06/24 13:21 Nasal Cannula 4 11/06/24 12:55 37.6 C H 73 18 96/67 L 95 Nasal Cannula 4 PG Care Time/CCT Total # of Minutes Spent Total Time Spent with Patient: Total time spent is greater than 50% in coordination of care (as documented) at patient's floor/unit and/or counseling patient: Coding Level of Care Code 26455 INT INP/OBS CARE 75MIN Diagnoses Influenza A J10.1 Hypoxia R09.02 COPD (chronic obstructive pulmonary disease) J44.9 KELLY (obstructive sleep apnea) G47.33 On home oxygen therapy Z99.81 Neurogenic claudication due to lumbar spinal stenosis M48.062 CAD (coronary artery disease) I25.10
[2024-11-06] MEDS: cefTRIAXone SODIUM 2,000 MG/50 ML BAG IV STA (15:43)
[2024-11-06] MEDS: ALBUT/IPRATROP 3MG/0.5MG NEB 3 ML VIAL NEB STA (15:45)
[2024-11-06] MEDS ORDERED: ACETAMINOPHEN 500 MG TAB PO PRN (16:11)
[2024-11-06] MEDS ORDERED: AZITHROMYCIN 250 MG TAB PO ONE (16:11)
[2024-11-06] MEDS ORDERED: ALBUT/IPRATROP 3MG/0.5MG NEB 3 ML VIAL INH PRN (18:58)
[2024-11-06] MEDS ORDERED: ALBUTEROL HFA 8 GM INHALER INH PRN (18:58)
[2024-11-06] MEDS: AZITHROMYCIN 250 MG TAB PO ONE (20:18)
[2024-11-06] MEDS: OSELTAMIVIR PHOSPHATE 75 MG CAP PO STA (20:20)
[2024-11-06] MEDS: PRAMIPEXOLE DIHYDROCHLO 0.5 MG TAB PO SCH (20:20)
[2024-11-06] MEDS ORDERED: NON-FORMULARY MEDICATION (Biotin 10 mg Tablet) PO SCH (21:00)
[2024-11-06] MEDS: FAMOTIDINE 20 MG TAB PO SCH (21:08)
[2024-11-06] MEDS: guaiFENesin 600 MG TABCR PO SCH (21:08)
[2024-11-06] MEDS: BENZONATATE 100 MG CAPSULE PO PRN (21:08)
[2024-11-06] MEDS: GABAPENTIN 100 MG CAP PO SCH (21:08)
[2024-11-06] MEDS: FLUTICASONE/VILANTEROL 100/25MCG 14 PUFFS/INHALER INH SCH (21:12)
[2024-11-06] MEDS: ENOXAPARIN INJ 40 MG/0.4 ML SYR SQ SCH (21:13)
[2024-11-06] MEDS: UMECLIDINIUM BROMIDE 62.5MCG/BLISTER 7 PUFFS/INHALER INH SCH (21:13)
[2024-11-07] MEDS: ALBUT/IPRATROP 3MG/0.5MG NEB 3 ML VIAL NEB PRN (05:15)
[2024-11-07] MEDS: LEVOTHYROXINE SODIUM 75 MCG TABLET PO SCH (05:52)
[2024-11-07] MEDS: FLUoxetine HCL 20 MG CAP PO SCH (08:07)
[2024-11-07] MEDS: ASPIRIN 81 MG ECTAB PO SCH (08:07)
[2024-11-07] MEDS: CHOLECALCIFEROL 25 MCG (1000 UNITS) TAB PO SCH (08:07)
[2024-11-07] MEDS: MAGNESIUM OXIDE 400 MG TAB PO SCH (08:08)
[2024-11-07] MEDS: ATORVASTATIN 40 MG TAB PO SCH (08:08)
[2024-11-07] MEDS: CYANOCOBALAMIN (B-12) 500 MCG TABLET PO SCH (08:08)
[2024-11-07] MEDS: AZITHROMYCIN 250 MG TAB PO SCH (08:08)
[2024-11-07] MEDS: amLODIPine BESYLATE 5 MG TAB PO SCH (08:44)
[2024-11-07] MEDS: METOPROLOL SUCC 25MG EXT REL TAB PO SCH (09:34)
[2024-11-07] MEDS: methylPREDNISolone 40 MG in SYRINGE 0 ML IV SCH ×2 (09:34→17:07)
[2024-11-07] MEDS: FUROSEMIDE 40 MG TAB PO SCH (09:34)
[2024-11-07] MEDS: POTASSIUM CHLORIDE 10 MEQ TABCR PO SCH (09:41)
[2024-11-07] MEDS: OSELTAMIVIR PHOSPHATE SUSP 30 MG/5 ML UDP PO SCH (09:41)
[2024-11-07 11:59] LABS: D Dimer 1800 ug/L FEU (0-500)
--- NOTE | 2024-11-07 12:37 | Hospitalist Progress Note ---
Date of Service November 07, 2024 Assessment & Plan (1) Influenza A: Plan: Acute viral illness present on admission. She is currently on Tamiflu. Supportive care (2) Hypoxia: Plan: She has chronic respiratory failure due to underlying COPD and states she uses. Uses oxygen at 4 L/min continuously at home. She is currently on 4 L/min (3) COPD (chronic obstructive pulmonary disease): Plan: Acute exacerbation present on admission. Improved with current treatment. (4) CAD (coronary artery disease): (5) HTN (hypertension): Plan: Amlodipine was held this morning, November 07, due to borderline low blood pressure. This probably can be resumed at discharge. Other medications remain the same Plan Hopeful discharge to home tomorrow, November 08 Admission and Anticipated Discharge Date Admission Date: November 06, 2024 Subjective That recorded alert and oriented. Amlodipine was placed on hold due to borderline low blood pressure this morning. She states she uses oxygen continuously at home at 4 L/min. She currently is at her baseline. She is on parenteral steroid therapy along with oral Tamiflu and azithromycin. Hopefully she can go home tomorrow, November 08 Review of Systems 2 Review of Systems: Constitutionalno fever or chills ENTno blurred vision, no double vision, no epistaxis, no sore throat Respiratorynonproductive cough. Dyspnea on exertion Cardiacno palpitations, no chest pain, no syncope Héctor nausea, vomiting, diarrhea, melena, hematochezia GUno urinary retention, no urinary incontinence, no dysuria, no hematuria Musculoskeletalno joint pain, no muscle tenderness Skinno bruising, no rashes, no pruritus Neurono isolated weakness, no paresthesia, no weakness Psychno depression, no anxiety Physical Exam 2 Physical Exam: General-alert and oriented x3, no fever, no chills HEENT-head atraumatic and normocephalic, pupils equal and reactive to light, extraocular muscles intact Neck-no lymphadenopathy or thyromegaly, trachea midline Chest-diminished breath sounds bilaterally. No audible rhonchi and no audible wheezing. No inspiratory rales Cardiac-regular rate and rhythm, normal S1 and S2 Abdomen-normal bowel sounds, no hepatosplenomegaly Extremities-no cyanosis, clubbing, or edema Neuro-cranial nerves II through XII intact, motor and sensory function within normal limits, strength symmetrical, no focal deficits Psych-normal affect, normal mood Results & Data Results & Data Vital Signs (Past 12 Hours) Vital Signs Temp Pulse Pulse Resp BP Pulse Ox O2 Del Method 11/07/24 09:37 80 121/61 91 Nasal Cannula 11/07/24 08:13 68 22 94 Nasal Cannula 11/07/24 07:50 Nasal Cannula 11/07/24 07:40 36.5 C 74 18 99/54 L 95 Room Air 11/07/24 07:18 36.5 C 70 18 101/63 92 Nasal Cannula 11/07/24 05:15 72 24 90 Nasal Cannula O2 Flow Rate 11/07/24 09:37 4 11/07/24 08:13 6 11/07/24 07:50 6 11/07/24 07:40 6 11/07/24 07:18 6 11/07/24 05:15 6 Laboratory Results 11/06/24 13:21 11/06/24 13:21 PG Care Time/CCT Total # of Minutes Spent Total Time Spent with Patient: Total time spent is greater than 50% in coordination of care (as documented) at patient's floor/unit and/or counseling patient: Coding Level of Care Code 13617 SUB INP/OBS CARE 3/50MIN Diagnoses Influenza A J10.1 Hypoxia R09.02 COPD (chronic obstructive pulmonary disease) J44.9 CAD (coronary artery disease) I25.10 HTN (hypertension) I10
[2024-11-07] MEDS: PRAMIPEXOLE DIHYDROCHLO 0.5 MG TAB PO SCH (17:07)
[2024-11-08 06:59] LABS: Basophils # (auto) 0.01 K/uL (0.00-0.20); Basophils % (auto) 0.1 %; Hematocrit (blood only) 38.1 % (37.0-47.0); Hemoglobin 12.4 g/dl (12.0-16.0); Immature Granulocytes # (auto) 0.09 K/uL (0.01-0.20); Immature Granulocytes % (auto) 0.7 %; Lymphocytes # (auto) 1.61 K/uL (1.20-3.40); Lymphocytes % (auto) 12.3 %; Mean Corpuscular Hgb Conc 32.5 g/dL (32.0-36.0); Mean Corpuscular Volume 98.4 fL (80.0-100.0); Mean Platelet Volume 9.6 fL (9.4-12.4); Monocytes # (auto) 0.82 K/uL (0.11-0.59); Monocytes % (auto) 6.3 %; Neutrophils # (auto) 10.55 K/uL (1.40-6.50); Neutrophils % (auto) 80.6 %; Platelet Count 249 K/uL (130-400); RDW Coefficient of Variation 14.2 % (11.5-14.5); Red Blood Count 3.87 M/uL (4.20-5.40); White Blood Count 13.08 K/ul (4.8-10.8)
[2024-11-08 07:19] LABS: BUN Creatinine Ratio 27.3 (10-20); Calcium 8.8 mg/dl (8.6-10.3); Potassium 4.3 mmol/L (3.5-5.1)
[2024-11-08 07:36] VITALS: TEMP 97.5
[2024-11-08 08:28] VITALS: RESP 28
[2024-11-08 10:36] VITALS: BP 126/72; PULSE 66; O2SAT 93
--- NOTE | 2024-11-08 12:57 | Discharge Summary ---
Discharge Summary Date of Service November 08, 2024 Principal Dx & Hospital Course #1 = Principal Diagnosis (1) Influenza A: Acute viral illness present on admission. Treated while hospitalized with Tamiflu. Supportive care (2) Hypoxia: She has chronic respiratory failure due to underlying COPD and states she uses. Uses oxygen at 4 L/min continuously at home. She is currently at her baseline oxygen use (3) COPD (chronic obstructive pulmonary disease): Acute exacerbation present on admission. Resolved with current treatment. (4) CAD (coronary artery disease): Stable. Continue current medical management (5) HTN (hypertension): Amlodipine was held on the morning of November 07, due to borderline low blood pressure. Blood pressure is now returned to baseline. Amlodipine can be resumed at discharge. (6) Chest pain: Atypical chest discomfort this morning, November 08. This appears to be noncardiac. EKG was done and shows no acute changes. Plan Anticipate discharge to home this afternoon, November 08. Continue prednisone in a tapering dose fashion at discharge along with cough medication as needed Admission HPI Per Admitting Provider Kathe is a 78-year-old female with a past medical history of COPD, chronic respiratory failure, KLELY, CAD who presents to the ER for evaluation of occultly breathing. Several days of cough and congestion, was referred to the ER by her PCP due to hypoxia. On ER evaluation she has no leukocytosis, no left shift, creatinine is at baseline, procalcitonin is normal, UA is negative, influenza H1 2009 PCR positive and BioFire otherwise negative. Chest x-ray shows no acute findings and no superimposed pneumonia. She received a dose of Rocephin while in the ER. She was recommended for monitoring of viral illness with hypotension, fever, and acute hypoxic respiratory failure. On attempted ambulatory trial on 3 L of nasal cannula (patient is prescribed home oxygen and is post be on around 3 L at home) that she rapidly desaturated into the 70s/80s. Subsequently referred for medical admission. Kathe is seen at the bedside just finishing a breathing treatment. She reports last month shes been 'a little wobbly' and more tired, but her breathing and fa tigue is much worse in the last 3-4 days (since last Tuesday). +aches "terrible aching all over". No fevers, chills, sweats. Cough is nonprodcutive. Wheezing much more than normal. Has felt progressively worse since Tuesday. No double sickening. NO chest pain. No chest pressure. She did not take any medications this morning. Minimal to no sinus congestion. Takes lasix for fluid in her legs and lungs. Feels fluid-balance jeronimo she feels a little fluid up. Shortness of breath is worse when laying flat, and much worse on ambulation. Trace ankle edema, about normal for her. No worsening edema. Medical History: Reviewed Medications: Reviewed Surgical History: Reviewed Family history: Reviewed Allergies: Reviewed Social History: No tobacco use. No etoh use. Code Status: DNR/DNI Discharge Exam General-alert and oriented x3, no fever, no chills HEENT-head atraumatic and normocephalic, pupils equal and reactive to light, extraocular muscles intact Neck-no lymphadenopathy or thyromegaly, trachea midline Chest-diminished breath sounds bilaterally. No audible rhonchi and no audible wheezing. No inspiratory rales Cardiac-regular rate and rhythm, normal S1 and S2 Abdomen-normal bowel sounds, no hepatosplenomegaly Extremities-no cyanosis, clubbing, or edema Neuro-cranial nerves II through XII intact, motor and sensory function within normal limits, strength symmetrical, no focal deficits Psych-normal affect, normal mood Discharge Plan Discharge Items Patient Disposition: Home - Self-Care Reason For Visit: FLU A, AOC COPD Discharge Diagnosis: Acute forget hip that influenza A, acute exacerbation COPD, acute on chronic hypoxic respiratory failure, noncardiac chest pain, transient hypotension Activity: Resume your previous activity Non-emergency contact: Primary Care Provider Call non-emergency contact if: your symptoms worsen Follow-up/Referrals: Patricia Olvera DO [Primary Care Provider] - 11/15/24 11:00 am Diet: Regular Addtl Attending Provider Instructions: Take prednisone in a tapering dose fashion as directed. Use Robitussin AC cough syrup as needed. Prescriptions have been sent to [facility] pharmacy and [facility] Pending Studies at Discharge: No Stand-Alone Forms: My [facility] Port[employer], Smoking Cessation Medications and DC Order Prescriptions: New prednisone 10 mg tablet See Rx Instructions .ROUTE .COMPLEX Qty: 12 0RF Rx Instructions: 10 mg orally 3 times a day for 2 days, then 10 mg twice a day for 2 days, then 10 mg once a day for 2 days, then stop codeine-guaifenesin [Guaifenesin AC] 10-100 mg/5 mL liquid 10 ml PO Q6H PRN (Reason: allergy symptoms) Qty: 118 0RF Continued alendronate [Fosamax] 70 mg tablet 70 mg PO Q7D Qty: 12 4RF cyanocobalamin (vitamin B-12) 1,000 mcg capsule 1,000 mcg PO QAM Qty: 90 3RF gabapentin 100 mg capsule 200 mg PO BID 90 Days Qty: 360 3RF ipratropium-albuterol 0.5 mg-3 mg(2.5 mg base)/3 mL solution for nebulization 3 ml inhalation Q6H PRN (Reason: wheezing) Qty: 180 3RF albuterol sulfate 90 mcg/actuation HFA aerosol inhaler 2 puff inhalation Q4H PRN (Reason: cough/wheeze/shortness of breath) Qty: 8.5 5RF Rx Instructions: use with "spacer" device (DME) Portable Oxygen Misc See Rx Instructions .Route Qty: 1 0RF Rx Instructions: home oxygen concentrator with portablility 4LPM with exertion via n/c. NELA 99. furosemide 40 mg tablet 40 mg PO QAM Qty: 90 3RF amlodipine [Norvasc] 5 mg tablet 5 mg PO QAM Qty: 90 3RF fluoxetine 20 mg capsule 20 mg PO QAM Qty: 90 3RF cholecalciferol (vitamin D3) 25 mcg (1,000 unit) capsule 25 mcg PO DAILY Qty: 30 0RF pramipexole 0.5 mg tablet 0.5 mg PO UD Qty: 270 3RF Rx Instructions: take one tab at 4PM, then take one 2 tabs one hour prior to bedtime metoprolol succinate 25 mg tablet extended release 24 hr 25 mg PO QAM Qty: 90 1RF (DME) Portable Oxygen Misc See Rx Instructions .Route Qty: 1 0RF Rx Instructions: PORTABLE OXYGEN CONCENTRATOR; FOR USE VIA N/C AT 4L AT ALL TIMES famotidine [Acid Fly Winder (famotidine)] 20 mg tablet 20 mg PO HS Qty: 90 3RF Trelegy Ellipta 100-62.5-25 mcg blister with device 1 inh inhalation QAM Qty: 1 3RF levothyroxine 75 mcg tablet 75 mcg PO QAM Qty: 90 1RF potassium chloride 10 mEq capsule, extended release 10 meq PO QAM Qty: 90 0RF (DME) Oxygen Home Liters Per Minute See Rx Instructions .ROUTE .MEDSUPPLY Qty: 1 0RF Rx Instructions: 4 liters NC O2 with activity/ambulation. biotin 10 mg Tablet 10 mg PO QPM aspirin 81 mg Tablet,Delayed Release (Dr/Ec) 81 mg PO QAM Qty: 0 0RF magnesium 500 mg Tablet 500 mg PO QAM atorvastatin 40 mg tablet 40 mg PO QAM Discharge Orders: Discharge Order (Routine); Ordered 11/08/24 Ordered By: Lucas Medeiros Admission Data Admit Date/Time: 11/06/24 16:11 Attending Provider: Lucas Medeiros Admit Provider: Angus Ya Primary Care Provider: Patricia Olvera Other Providers: Angus Ya Hospital Stay Data Consultations 11/06/24 15:31 ED Decision to Admit Stat Pending Results Patient Have Any Pending Studies at Discharge: No Discharge Instructions Given to Patient (Per Discharging Provider) Take prednisone in a tapering dose fashion as directed. Use Robitussin AC cough syrup as needed. Prescriptions have been sent to [facility] pharmacy and [place] Total Time Total Time Spent Total Time Spent (In Minutes): 50 minutes not 15 fifth ISAK Coding Level of Care Code 83968 INP/OBS DISCH >30 MIN Diagnoses Influenza A J10.1 Hypoxia R09.02 COPD (chronic obstructive pulmonary disease) J44.9 CAD (coronary artery disease) I25.10 HTN (hypertension) I10 Chest pain R07.9
--- NOTE | 2024-11-08 14:46 | Electrocardiogram Report ---
Test Reason : Blood Pressure : */* mmHG Vent. Rate : 65 BPM Atrial Rate : 65 BPM P-R Int : 160 ms QRS Dur : 94 ms QT Int : 416 ms P-R-T Axes : 65 5 45 degrees QTcB Int : 432 ms Normal sinus rhythm Low voltage QRS Abnormal ECG When compared with ECG of 06-Nov-2024 13:02, No significant change was found Confirmed by Marco Antonio Villalobos ([id number]) on 11/08/2024 2:46:08 PM Referred By: Patricia Olvera Confirmed By: Marco Antonio Villalobos
== END 2024-11-08 15:01 | disposition home or self-care (01) | DRG 194 ==
LOC: ED 12:55 → EDINP 16:11 → SUATTDRO 16:11 → INTOOBSV 16:11 → EDINP 18:59 → 3E 20:54